=== PATIENT | female | born 1955 | race Caucasian/White ===

== ENCOUNTER 2019-03-03 21:55 | Inpatient (IN) ==
[2019-03-03 23:00] LABS: BE 8.7 mmoll (-3.0-3.0); BLOOD TYPE ARTERIAL; HCO3-(ACT) 31.5 mmoll (20.0-26.0); METHB 0.8 % (0.0-1.5); O2(CT) 15.4 mL/dL (15.0-23.0); PCO2(98.6) 46 mmHg (35-45); PO2(98.6) 50 mmHg (60-100); SAMPLE BLOOD; SAO2 90.6 % (95.0-100.0); THB 12.5 g/dL (11.5-17.4); pH(98.6) 7.47 (7.35-7.45)
[2019-03-03 23:01] LABS: ALLEN TEST NO; MODALITY ROOM AIR; O2HB 87.8 % (95.0-99.0)
[2019-03-03 23:19] LABS: URINE SOURCE CATH
[2019-03-03 23:20] LABS: BILIRUBIN URINE NEGATIVE (NEGATIVE); BLOOD URINE NEGATIVE (NEGATIVE); CLARITY CLEAR (CLEAR); COLOR YELLOW; GLUCOSE URINE NEGATIVE (NEGATIVE); KETONE URINE NEGATIVE (NEGATIVE); LEUKOCYTES URINE TRACE (NEGATIVE); NITRITE URINE NEGATIVE (NEGATIVE); PROTEIN URINE NEGATIVE (NEGATIVE); SP GRAVITY URINE 1.005; URINE BACTERIA 3+ /HFP; URINE EPITHELIAL CELLS <10 /HPF (<10); URINE RBC <10 /HPF (<10); URINE WBC <10 /HPF (<10); UROBILINOGEN URINE 4 mg/dL
[2019-03-03 23:29] LABS: BASO# 0.03 X1000 (0.0-0.2); BASO% 0.4 % (0.0-0.8); EOS# 0.43 X1000 (0.0-0.7); EOS% 5.1 % (0.0-10.0); HEMATOCRIT 37.5 % (37.0-47.0); IMM GRAN# 0.01 X1000 (0.0-0.04); IMM GRAN% 0.1 % (0.0-0.5); LYMPH# 1.48 X1000 (1.2-3.4); LYMPH% 17.4 % (20.5-51.1); MCH 32.2 PG (27-31); MCV 100.5 FL (81-99); MONO# 0.72 X1000 (0.11-0.59); MONO% 8.5 % (1.7-9.3); MPV 10.4 FL (7.4-10.4); NEUT# 5.84 X1000 (1.4-6.5); NEUT% 68.5 % (42.2-75.2); PLT 196 X1000 (130-400); RBC 3.73 XMIL (4.2-5.4); WBC 8.51 X1000 (4.8-10.8)
[2019-03-03 23:33] LABS: INR 1.15; PROTIME 15.3 Seconds (11.0-16.0)
[2019-03-03 23:34] LABS: PTT 36.7 Seconds (22.3-41.8)
[2019-03-03 23:43] LABS: AGAP 12; ALBUMIN 3.5 g/dL (3.5-5.0); ALKALINE PHOSPHATASE 94 U/L (32-104); BUN 8 mg/dL (8-22); CALCIUM 8.3 mg/dL (8.8-10.2); CHLORIDE 96 mmol/L (98-107); CK PROFILE 52 U/L (24-173); COSMO 274; CREATININE 0.7 mg/dL (0.5-0.9); ESTIMATED GFR > 60; GLUCOSE 136 mg/dL (70-104); GOT 24 U/L (10-30); GPT 13 U/L (10-36); POTASSIUM 4.2 mmol/L (3.5-5.1); SODIUM 137 mmol/L (136-145); TCO2 29 mmol/L (25-35); TOTAL PROTEIN 6.3 g/dL (6.3-8.3)
--- NOTE | 2019-03-04 00:21 | EKG Report ---
Test Performed on : 03/03/2019 11:00:52 PM Test Reason : AMS Blood Pressure : / mmHG Vent. Rate : 123 BPM Atrial Rate : 111 BPM P-R Int : 000 ms QRS Dur : 082 ms QT Int : 326 ms P-R-T Axes : 000 -29 -11 degrees QTc Int : 466 ms Atrial fibrillation. with rapid ventricular response. Minimal voltage criteria for LVH, may be normal variant Anterior infarct , age undetermined Abnormal ECG When compared with ECG of 21-FEB-2011 12:39, Atrial fibrillation. has replaced Sinus rhythm. Anterior infarct is now present Nonspecific T wave abnormality now evident in Inferior leads Unconfirmed Result
[2019-03-04 00:39] LABS: UR AMPHETAMINES QUAL NONE DETECTED (NONE DETECT); UR BARBITUATES QUAL NONE DETECTED (NONE DETECT); UR BENZODIAZEPIN QUAL PRESUMPTIVE POSITIVE (NONE DETECT); UR CANNABINOIDS QUAL NONE DETECTED (NONE DETECT); UR COCAINE QUAL NONE DETECTED (NONE DETECT); UR METHADONE QUAL NONE DETECTED (NONE DETECT); UR METHAMPHETAMINE QUAL NONE DETECTED (NONE DETECT); UR OPIATES QUAL NONE DETECTED (NONE DETECT); UR OXYCODONE QUAL NONE DETECTED (NONE DETECT); UR PCP QUAL NONE DETECTED (NONE DETECT); UR PROPOXYPHENE QUAL NONE DETECTED (NONE DETECT); UR TCA QUAL NONE DETECTED (NONE DETECT)
[2019-03-04] MEDS ORDERED: CARDIZEM IV ONE (01:45)
[2019-03-04] MEDS ORDERED: CARDIZEM 100 MG/NS 100 MG/100 ML IVPB IV SCH (04:00)
[2019-03-04] MEDS ORDERED: NS 50 ML ONE (04:37)
[2019-03-04] MEDS ORDERED: CARDIZEM ONE (04:40)
[2019-03-04] MEDS: CARDIZEM 125 MG/D5W 125 MG/125 ML IVPB IV SCH ×2 (08:49→19:02)
--- NOTE | 2019-03-04 08:49 | Diag Imaging Result Doc PS360 ---
EXAM: CHEST-PORTABLE HISTORY: AMS TECHNIQUE: Single view of the chest was performed portably. COMPARISON: 07/28/2015 FINDINGS: Lung volumes are reduced. Heart size is within normal limits. Basilar scarring is unchanged. There is screw plate fixation right humerus fracture The pulmonary vasculature is not congested. No acute infiltrate, effusion, or pneumothorax is appreciated. IMPRESSION: Stable chest with reduced lung volumes prominent interstitial markings. No acute cardiopulmonary abnormality is identified. Electronically signed by Rose Marie Srinivasan 03/04/2019 8:46 AM
--- NOTE | 2019-03-04 09:00 | Diag Imaging Result Doc PS360 ---
EXAM: CT HEAD W/O CONTRAST HISTORY: AMS TECHNIQUE: Images were obtained from the skull base to vertex without IV contrast as per standard protocol. COMPARISON: 07/27/2015 FINDINGS: There is no evidence for hemorrhage, hydrocephalus, mass effect, or fluid collection. There is diffuse cerebral atrophy and microvascular disease. Calvarium is intact. Paranasal sinuses are clear. Preliminary interpretation given by [facility] teleradiology. IMPRESSION: Atrophy and microvascular disease. No acute intracranial abnormality. This exam was performed using automated exposure control, adjustment of mA or kV according to patient size, and/or use of iterative reconstruction technique. Electronically signed by Rose Marie Srinivasan 03/04/2019 8:57 AM
[2019-03-04] MEDS ORDERED: COUMADIN PO ONE ×2 (16:14→21:00)
--- NOTE | 2019-03-04 17:15 | HISTORY AND PHYSICAL ---
CHIEF COMPLAINT: Altered mental status with hallucinations and delirium. HISTORY OF PRESENT ILLNESS: This is a 63-year-old female with a prior history of chronic pain, hypertension, hypothyroidism. She presents to the emergency room via EMS after having being called by her family who state the patient has had visual hallucinations, periods of being delirious, and confusion. The patient is aware that she is having hallucinations. She also reports a different odor to her urine as well as dysuria. She denied any syncope, dizziness, any shortness of breath, cough, fever. PAST MEDICAL HISTORY: 1. Hypothyroid. 2. Chronic back pain, on chronic narcotics. 3. Hypertension. 4. Hypothyroid. PAST SURGICAL HISTORY: She had a tubal ligation, complete total hysterectomy due to cervical cancer in 1992. ALLERGIES: Pepcid and ibuprofen which cause nausea. Latex which causes a rash. HOME MEDICATIONS: A list will be obtained by the nursing staff and once verified, will review and restart as is appropriate. REVIEW OF SYSTEMS: Discussed with patient with pertinent positives stated in HPI. She denied any syncope, dizziness, chest pain, palpitations, any shortness of breath, cough, any fever, chills, night sweats, any nausea, vomiting, diarrhea, constipation, black or bloody vomitus or stools, hematuria, dysuria, frequency, urgency. PHYSICAL EXAMINATION: GENERAL: This is a 63-year-old female who is sitting up in the bed in ICU, in no distress. VITAL SIGNS: Blood pressure is 125/76, with respirations of 20, heart rate is 111 and irregular, with temperature 97.3 degrees, O2 saturations 98 to 100% on 2 L nasal cannula. EYES: Pupils equal, round, react to light. EOMs are intact. Sclerae anicteric. HENT: Head is normocephalic, atraumatic. Mucous membranes are moist. NECK: Supple with trachea midline. CARDIOVASCULAR: Irregularly irregular rate and rhythm. S1 and S2 appreciated. She does have bilateral lower extremity edema. Calves are nontender. Peripheral pulses are palpable x4 extremities. PULMONARY: Breath sounds are clear. No increased work of breathing noted. Chest rises and falls symmetrically with respiration. Chest wall is nontender to palpation. GASTROINTESTINAL: Abdomen is soft, nontender, nondistended. Bowel sounds in all 4 quadrants. NEUROLOGIC: She is alert and oriented x3. SKIN: Warm and dry. LABS: WBC is 8.5, with hemoglobin of 12, hematocrit 37.5, and platelets of 196,000. INR is 1.15. Sodium 137, potassium 4.2, BUN 8, creatinine 0.7, with a glucose of 136. Urinalysis reveals trace white blood cells, 3+ bacteria. Urine drug screen reveals presumptive positive for benzodiazepines. Urine culture is pending. CT of the head reveals atrophy and microvascular disease. No acute intracranial abnormality. Chest x-ray: Stable chest with reduced lung volumes. No acute cardiopulmonary abnormality is identified. ASSESSMENT AND PLAN: 1. Atrial fibrillation with rapid ventricular rate. The patient has been admitted to ICU and placed on a Cardizem drip. We will continue this by protocol. We will identify her home medications and continue as is appropriate. 2. Chronic anticoagulation secondary to atrial fibrillation. We will verify the medication that she is taking and continue as appropriate. 3. Hypoxemia. PO2 is 50 on ABGs on room air. We will continue with O2 at 2 L. 4. Hypothyroid. We will continue her home medications. 5. Severe osteoporosis with multiple compression fractures. Aware. Further treatments pending hospital course. Dictated by TIFFANIE Alvarado for Leo Huizar MD cc: TIFFANIE Alvarado MD
[2019-03-04] MEDS: ROCEPHIN 1 GM in NS 50 ML IV SCH (19:02)
[2019-03-04] MEDS ORDERED: CATAPRES PO PRN (20:20)
[2019-03-04] MEDS ORDERED: SYNTHROID PO SCH (20:30)
[2019-03-04] MEDS: CYMBALTA PO SCH (20:41)
[2019-03-04] MEDS: NEURONTIN PO SCH (20:41)
[2019-03-04] MEDS ORDERED: CIPRO PO SCH (21:00)
--- NOTE | 2019-03-05 01:25 | HISTORY AND PHYSICAL ---
ADDENDUM: Patient seen and examined by myself. Full note dictated and discussed with nurse practitioner. The patient is a 63-year-old female who presented to the emergency department with confusion, disorientation, hallucinations. This seems to be resolved. She was also noted to be in atrial fibrillation. We have admitted her to the hospital ICU on and we will follow. cc: Leo Huizar MD
[2019-03-05] MEDS: CARDIZEM 125 MG/D5W 125 MG/125 ML IVPB IV SCH ×2 (06:42→17:46)
[2019-03-05] MEDS: SYNTHROID PO SCH (06:49)
[2019-03-05 07:16] LABS: HEMATOCRIT 37.6 % (37.0-47.0); HEMOGLOBIN 12.1 g/dL (12.0-16.0); MCH 32.6 PG (27-31); MCHC 32.2 g/dL (33-37); MCV 101.3 FL (81-99); MPV 10.6 FL (7.4-10.4); RBC 3.71 XMIL (4.2-5.4); RDW 12.6 % (11.5-14.5); WBC 7.69 X1000 (4.8-10.8)
[2019-03-05 07:29] LABS: INR 0.97; PROTIME 13.4 Seconds (11.0-16.0)
[2019-03-05 08:19] LABS: AGAP 13; ALBUMIN 3.2 g/dL (3.5-5.0); ALKALINE PHOSPHATASE 89 U/L (32-104); BUN 8 mg/dL (8-22); CALCIUM 8.1 mg/dL (8.8-10.2); CHLORIDE 98 mmol/L (98-107); COSMO 280; CREATININE 0.7 mg/dL (0.5-0.9); ESTIMATED GFR > 60; GLUCOSE 140 mg/dL (70-104); GOT 15 U/L (10-30); GPT 11 U/L (10-36); POTASSIUM 3.1 mmol/L (3.5-5.1); SODIUM 140 mmol/L (136-145); TCO2 29 mmol/L (25-35); TOTAL PROTEIN 6.4 g/dL (6.3-8.3)
[2019-03-05] MEDS: NEURONTIN PO SCH (09:18)
[2019-03-05] MEDS: LANOXIN PO SCH (09:18)
[2019-03-05] MEDS: XANAX PO SCH ×3 (09:19→16:23)
[2019-03-05] MEDS ORDERED: COUMADIN PO ONE ×2 (10:59→21:00)
[2019-03-05] MEDS: TYLENOL PO PRN ×2 (12:08→18:46)
[2019-03-05] MEDS: ROCEPHIN 1 GM in NS 50 ML IV SCH (16:23)
--- NOTE | 2019-03-05 20:31 | CARDIOLOGY CONSULTATION ---
DATE: 03/05/2019 CONSULTATION REQUESTED BY: Leo Huizar MD of the hospitalist service. REASON: Atrial fibrillation. CHIEF COMPLAINT: Palpitations, confusion. PRIMARY CARE PHYSICIAN: Aneudy Jimenez MD HISTORY: Ms. Hays is a 63-year-old female who presented to the hospital on March 03 with complaints of increasing confusion. The patient reported having visual hallucinations. She also reported feeling her heart palpitating feeling a little more short of breath than usual and also having intermittent swelling of the lower extremities. Upon presentation, they did a chest x- ray that shows reduced lung volumes and prominent interstitial markings. EKG showed atrial fibrillation with rapid response. There was a nonspecific T-wave abnormality left axis. A head CT showed atrophy with microvascular disease. Laboratory work showed that her pCO2 was elevated at 46 and pO2 was low at 50, pH 7.47. Her BUN and creatinine were normal. Sodium and potassium were normal. Her hemoglobin was normal. White count was normal. They have done a urinalysis, and she is growing gram-negative rods. Her TSH on the other hand is low at 0.03 suggesting that she may be hyperthyroid. The patient denies having chest pains. PAST HISTORY: Positive for paroxysmal atrial fibrillation. She has been treated with anticoagulant, warfarin, by Dr. Jimenez. She does have a surgical history positive for previous hysterectomy for suspected cancer of the uterus, which in the end apparently was ruled out. She has had chronic pain in the back, hips and knees. At some point, she has been in the pain clinic and had been treated with high doses of narcotics with very little help. She has been basically wheelchair bound for the past 5 years due to her severe osteoarthritis. The patient used to be morbidly obese, weight up to 277 pounds. Right now, she is 216 pounds. She underwent bariatric surgery about 13 years ago. She has had tubal ligation also. HOME MEDICATIONS: Included allopurinol 300 mg daily, alprazolam 1 mg 3 times a day, aspirin 81 daily, clonidine 0.3 times a day, Cymbalta 60 mg at bedtime, gabapentin 400 daily, levothyroxine 100 mcg daily, methocarbamol 750 every 6 hours, metoprolol succinate 50 twice a day, Protonix 40 mg daily, potassium chloride 10 mEq 3 times a day, ropinirole 1 mg once a day, Zanaflex 4 mg 3 times a day, warfarin 5 mg at bedtime. ALLERGIES: To famotidine, ibuprofen and latex. REVIEW OF SYSTEMS: The patient basically is wheelchair bound. She can use her hands to do some activity in the kitchen. They get their meals usually from [employer]. She has chronic lower extremity pain. Lately she has developed hallucinations. FAMILY HISTORY: There is a question of Parkinson's in the father and Alzheimer's in the mother. No significant heart disease. SOCIAL HISTORY: She is , lives with her . She has had 2 children. She has been disabled for a long time. PHYSICAL EXAMINATION: Vital signs: Today blood pressure 177/87, temperature 98.5 degrees, pulse 118, respirations 16. General: She is obese. She shows little mobility. HEENT: Unremarkable. She is obviously morbidly obese. Body mass index is 40. Chest: Shows symmetrical breath sounds. Cardiovascular: Heart sounds are irregularly irregular, distant. Abdomen: Obese, nontender. Extremities: Showed palpable pulses. There is trace brawny edema in lower extremities. Neurological exam: She moves all 4 extremities. She has some generalized muscle hypotonia probably related to diffuse muscle atrophy. IMPRESSION: 1. Patient who presents with palpitations, evidence of paroxysmal atrial fibrillation with rapid response. 2. Suspected hyperthyroidism. Her TSH is 0.03 mIU/ml. 3. Morbidly obese status post bariatric surgery. 4. Severe functional impairment. Patient has been wheelchair bound for 5 years. 5. Long-term history of severe osteoarthritis involving the hips, knees, back. 6. History of hypertension. RECOMMENDATIONS: At this time, the patient is being treated for the urinary tract infection with ceftriaxone. I am going to add beta blockers to her medications because if she is indeed hyperthyroid, beta-rebecca is probably the drug of choice to slow her heart rate down. We will proceed with checking a free T4, free T3 and free thyroxine index. Further intervention will depend on her clinical course. She will have to be followed by Dr. Jimenez a little more closely if indeed she is hyperthyroid. cc: MD Aneudy Denis MD [facility]
[2019-03-05] MEDS: LOPRESSOR PO SCH (20:44)
[2019-03-05] MEDS: CYMBALTA PO SCH (20:44)
[2019-03-05] MEDS ORDERED: COUMADIN PO SCH (21:00)
[2019-03-05] MEDS: BENADRYL PO PRN (21:04)
--- NOTE | 2019-03-05 23:01 | PROGRESS NOTE ---
DATE: 03/05/2019 SUBJECTIVE: The patient has no complaints. Notes that she has had no further delirium or confusion while in the hospital. Denies any chest pains or palpitations. PHYSICAL EXAMINATION: Vital Signs: Reviewed. Afebrile, pulse 102 to 130, respiratory 20, BP 145/83. General: The patient is awake, alert. She is in no distress. She is very pleasant to talk with. HEENT: Normocephalic. Neck: Supple. CARDIOVASCULAR: Regular rate. No murmurs. Cardiovascular: Irregular rate, irregular rhythm. Chest: Clear, unlabored. Abdomen: Soft, nondistended. Extremities: Moves all extremities. ASSESSMENT: 1. Atrial fibrillation with rapid ventricular response. 2. Chronic anticoagulation secondary to atrial fibrillation. 3. Hypoxemia. 4. Hypothyroidism. 5. Severe osteoporosis with frequent falls and compression fractures. 6. Gram-negative anson urinary tract infection. We will continue antibiotics until culture and sensitivity. 7. Acute metabolic encephalopathy, likely secondary to her urinary tract infection. Thankfully, it is improved. We will continue antibiotics. Further orders as needed. cc: Leo Huizar MD
[2019-03-05] MEDS ORDERED: BENADRYL CREAM TOP PRN (23:26)
[2019-03-06] MEDS: LOPRESSOR PO SCH ×4 (01:28→20:50)
[2019-03-06] MEDS: CARDIZEM 125 MG/D5W 125 MG/125 ML IVPB IV SCH ×2 (02:35→20:51)
[2019-03-06 06:36] LABS: INR 1.24; PROTIME 16.2 Seconds (11.0-16.0)
[2019-03-06] MEDS: SYNTHROID PO SCH (06:58)
[2019-03-06] MEDS: LANOXIN PO SCH (08:51)
[2019-03-06] MEDS: XANAX PO SCH ×3 (08:51→17:51)
[2019-03-06] MEDS: NEURONTIN PO SCH (08:58)
[2019-03-06] MEDS: TYLENOL PO PRN (14:27)
--- NOTE | 2019-03-06 16:04 | ECHO REPORT ---
ORDER DATE: 03/06/2019 INTERPRETING PHYSICIAN: Corwin Samuel MD INDICATION: Atrial fibrillation with rapid response. Definity was used. DESCRIPTION: Left ventricle end diastole: 3.6 cm. Left ventricle end systole: 1.6 cm. Posterior wall: 1.0 cm. Interventricular septum: 0.9 cm. Left atrium: 4.1 cm. Aortic diameter: 2.6 cm. SUMMARY OF 2-DIMENSIONAL IMAGIN. Left ventricular function appears to be well preserved. This study was difficult. Ejection fraction is on the order of 55% to 60%. 2. The mitral valve appears to be grossly normal. Color flow mapping indicates a mild degree of regurgitation. 3. The aortic valve appears to be grossly normal. Color flow mapping is unremarkable. 4. The pulmonic valve looks unremarkable. 5. The tricuspid valve shows a [id number] degree of regurgitation. 6. Pulmonary pressure is 51 mmHg. 7. I do not see a pericardial effusion. 8. The atria appear to be mildly enlarged. 9. Diastolic function cannot be evaluated here. Clinical correlation recommended. cc: Corwin Samuel MD
--- NOTE | 2019-03-06 16:28 | EKG Report ---
Test Performed on : 03/06/2019 4:21:23 PM Test Reason : converted -SR Blood Pressure : / mmHG Vent. Rate : 072 BPM Atrial Rate : 072 BPM P-R Int : 192 ms QRS Dur : 080 ms QT Int : 422 ms P-R-T Axes : 051 -22 007 degrees QTc Int : 462 ms Sinus rhythm. with premature atrial complexes. Possible Anterior infarct (cited on or before 03-MAR-2019) Abnormal ECG When compared with ECG of 03-MAR-2019 23:00, (Unconfirmed) Sinus rhythm. has replaced Atrial fibrillation. Vent. rate has decreased BY 51 BPM Nonspecific T wave abnormality now evident in Anterior leads Nonspecific T wave abnormality no longer evident in Lateral leads Unconfirmed Result
[2019-03-06] MEDS: ROCEPHIN 1 GM in NS 50 ML IV SCH (17:52)
[2019-03-06] MEDS: CYMBALTA PO SCH (20:51)
[2019-03-06] MEDS ORDERED: COUMADIN PO ONE (21:00)
[2019-03-06] MEDS: BENADRYL PO PRN (21:09)
--- NOTE | 2019-03-07 01:49 | PROGRESS NOTE ---
DATE: 03/06/2019 SUBJECTIVE: Patient notes overall she is feeling better. No further hallucinations. Does not really feel any palpitations. Denies any fevers. Denies any dysuria, urinary frequency, constipation, melena. PHYSICAL EXAMINATION: Vital Signs: Temperature 98.6 degrees, pulse 102 respiratory 18, BP 134/42. General: Patient is awake, alert, currently in no distress. Pleasant to talk with. HEENT: Normocephalic. Neck: Supple. Cardiovascular: Irregular rate, irregular rhythm. Chest: Clear, nonlabored. No crackles. Abdomen: Soft, nondistended, nontender. Extremities: Moves all extremities. ASSESSMENT: 1. Atrial fibrillation with rapid ventricular response. We will ask Cardiology for impression. 2. Gram-negative anson urinary tract infection. Continue Rocephin. 3. Hypoxemia. 4. Hypothyroidism. 5. Severe [*]ischemia. 6. Severe osteoporosis. PLAN: We will continue patient in the hospital. Continue to follow. Continue Cardizem, digoxin. Ask Cardiology for opinion. Further orders as needed. cc: Leo Huizar MD
[2019-03-07] MEDS: LOPRESSOR PO SCH ×4 (02:24→20:08)
[2019-03-07] MEDS: SYNTHROID PO SCH (06:47)
[2019-03-07 08:04] LABS: INR 1.85; PROTIME 22.2 Seconds (11.0-16.0)
[2019-03-07] MEDS: NEURONTIN PO SCH (08:39)
[2019-03-07] MEDS: LANOXIN PO SCH (08:39)
[2019-03-07] MEDS: XANAX PO SCH ×3 (08:39→17:13)
[2019-03-07] MEDS: CARDIZEM 125 MG/D5W 125 MG/125 ML IVPB IV SCH ×2 (12:36→20:08)
[2019-03-07] MEDS: ROCEPHIN 1 GM in NS 50 ML IV SCH (15:39)
--- NOTE | 2019-03-07 18:17 | PROGRESS NOTE ---
DATE: 03/07/2019 SUBJECTIVE: Patient unfortunately this morning is confused, disoriented. She has been talking to people who were not in the room. She has been seeing animals and bugs etc. PHYSICAL: Temperature 98, pulse anywhere from [address] to 120s and 140s, BP 152/111.General: Patient is awake. She is disoriented. She is in no current respiratory distress. HEENT: Normocephalic. Neck: Supple. CV: Irregular rate, irregular rhythm, poor rate control. Chest: Clear, nonlabored, no wheezing. Abdomen: Soft, nondistended. Extremities: Moves all extremities trace edema. Neuro: Patient is awake, alert but confused, disoriented, hallucinating. ASSESSMENT: 1. Atrial fibrillation currently very poor control. 2. Chronic anticoagulation. 3. Hypoxemia. 4. Hypothyroidism . 5. Severe osteoporosis. 6. Klebsiella urinary tract infection. Continue antibiotics. PLAN: Will continue antibiotics and supportive care, will ask Cardiology for input regarding her atrial fibrillation. Discussed with the family that her hallucinations are more likely related to her chronic mild dementia superimposed with urinary tract infection. cc: Leo Huizar MD
--- NOTE | 2019-03-07 19:52 | CARDIOLOGY PROGRESS NOTE ---
DATE: 03/06/2019 SUBJECTIVE: Ms. Hays is somewhat sleepy. She has no complaints. She has no palpitations. OBJECTIVE/PHYSICAL EXAMINATION: Vital Signs: She is afebrile. Heart rates during my examination were in the 80s to low 100s. Blood pressure 149/81. General: No acute distress. Cardiovascular: She is in a irregularly irregular rhythm consistent with atrial fibrillation. She has no lower extremity edema. Chest: Clear bilaterally. She has no increased work of breathing. Abdomen: Soft, nontender. PERTINENT DATA: Echo shows a preserved ejection fraction of 55% to 60%. Lab data shows an INR of 1.85. She has no recent chemistry or CBC data. ASSESSMENT: 1. Atrial fibrillation. 2. Urinary tract infection. PLAN: I have increased her metoprolol to 50 t.i.d. I will stop her warfarin and place her on Eliquis 5 mg b.i.d. If she gets under reasonable rate control, then that would be the extent of our medication adjustments. If not, we could consider addition of flecainide and potential cardioversion on Saturday. cc: Donny Saunders MD
[2019-03-07] MEDS: CYMBALTA PO SCH (20:08)
[2019-03-07] MEDS: ELIQUIS PO SCH (20:08)
[2019-03-07] MEDS ORDERED: COUMADIN PO SCH (21:00)
[2019-03-07] MEDS: SEROQUEL PO PRN (21:25)
[2019-03-08] MEDS: LOPRESSOR PO SCH ×3 (04:49→20:03)
[2019-03-08] MEDS: SYNTHROID PO SCH (06:46)
[2019-03-08 07:28] LABS: AGAP 11; BUN 8 mg/dL (8-22); CALCIUM 8.4 mg/dL (8.8-10.2); CHLORIDE 101 mmol/L (98-107); COSMO 278; CREATININE 0.6 mg/dL (0.5-0.9); ESTIMATED GFR > 60; GLUCOSE 105 mg/dL (70-104); MAGNESIUM 1.9 mg/dL (1.5-2.7); POTASSIUM 3.8 mmol/L (3.5-5.1); SODIUM 140 mmol/L (136-145); TCO2 28 mmol/L (25-35)
[2019-03-08] MEDS: XANAX PO SCH (08:17)
[2019-03-08] MEDS: ELIQUIS PO SCH ×2 (08:17→20:03)
[2019-03-08] MEDS: LANOXIN PO SCH (08:17)
[2019-03-08] MEDS: NEURONTIN PO SCH (08:17)
[2019-03-08] MEDS: CARDIZEM 125/NS 125 MG/125 ML IVPB IV SCH ×2 (09:22→16:44)
[2019-03-08] MEDS: TYLENOL PO PRN (14:02)
--- NOTE | 2019-03-08 15:01 | CARDIOLOGY PROGRESS NOTE ---
DATE: 03/08/2019 SUBJECTIVE: The patient reports she is doing well. She is not having any palpitations or shortness of breath. PHYSICAL EXAMINATION: Vital Signs: The patient is afebrile. Heart rates continue to fluctuate up into the 120s, blood pressure 122/69. General: She is in no acute distress. Cardiovascular: She is in an irregularly irregular rhythm. Her telemetry currently shows what appears to be coarse atrial fibrillation. No lower extremity edema. Chest: Examination is clear bilaterally. No increased work of breathing. Abdomen: Soft, nontender. PERTINENT DATA: She has chemistry data from today showing a sodium of 140, potassium is 3.8, BUN 8, creatinine 0.6, magnesium level is 1.9. ASSESSMENT: Ms. Hays is a 63-year-old female with atrial fibrillation. PLAN: We will continue her on current medications. Discontinue digoxin. Start flecainide 100 b.i.d. She is on apixaban at 5 b.i.d. We will transfer her over to [facility] tomorrow for consideration of CRISPIN, cardioversion. Risks, benefits, and alternatives have been explained to the patient. cc: Donny Saunders MD
[2019-03-08] MEDS: ROCEPHIN 1 GM in NS 50 ML IV SCH (16:07)
--- NOTE | 2019-03-08 18:34 | PROGRESS NOTE ---
DATE: 03/08/2019 SUBJECTIVE: Patient has no complaints. She is still having auditory and visual hallucinations. PHYSICAL: Temperature 97 degrees, pulse 80s to 120s, respiratory 22, BP 72/53 to 135/82.General: Patient is awake, she is lying in bed, she is in no current distress. HEENT: Normocephalic. Neck: Supple. CV: Irregular rate, irregular rhythm. Chest: Clear, no crackles, no wheezing. Abdomen: Soft, nondistended. Extremities: Trace edema. ASSESSMENT: 1. Atrial fibrillation, rapid ventricular response recalcitrant to treatment. She has been on Cardizem drip for several days. Cardiology has added metoprolol and increased to 50 q.6. 2. Klebsiella urinary tract infection currently on intravenous antibiotics. 3. Chronic anticoagulation secondary to atrial fibrillation. 4. Hypoxemia. 5. Hypothyroidism. 6. Severe osteoporosis. 7. Metabolic encephalopathy secondary to sundowning and urinary tract infection . PLAN: Will continue patient in the hospital. Cardiology may be add flecainide versus cardioversion. Discussed with the family. Further orders as needed. cc: Leo Huizar MD
[2019-03-08] MEDS: XANAX PO PRN (19:50)
[2019-03-08] MEDS: CYMBALTA PO SCH (20:03)
[2019-03-08] MEDS: TAMBOCOR PO SCH (20:03)
[2019-03-08] MEDS: SEROQUEL PO PRN (23:09)
[2019-03-09] MEDS: LOPRESSOR PO SCH ×4 (05:20→21:23)
[2019-03-09] MEDS: SYNTHROID PO SCH (06:34)
--- NOTE | 2019-03-09 06:34 | EKG Report ---
Test Performed on : 03/09/2019 06:28:29 AM Test Reason : converted to sinus Blood Pressure : / mmHG Vent. Rate : 069 BPM Atrial Rate : 069 BPM P-R Int : 200 ms QRS Dur : 082 ms QT Int : 442 ms P-R-T Axes : 071 -17 024 degrees QTc Int : 473 ms Normal sinus rhythm. Cannot rule out Anterior infarct (cited on or before 03-MAR-2019) Abnormal ECG When compared with ECG of 06-MAR-2019 16:21, (Unconfirmed) premature atrial complexes. are no longer present Unconfirmed Result
[2019-03-09 07:01] LABS: HEMATOCRIT 40.5 % (37.0-47.0); HEMOGLOBIN 12.9 g/dL (12.0-16.0); MCH 32.4 PG (27-31); MCHC 31.9 g/dL (33-37); MCV 101.8 FL (81-99); MPV 10.6 FL (7.4-10.4); RBC 3.98 XMIL (4.2-5.4); RDW 12.7 % (11.5-14.5); WBC 6.72 X1000 (4.8-10.8)
[2019-03-09 07:37] LABS: INR 2.94
[2019-03-09 07:53] LABS: AGAP 11; ALBUMIN 3.1 g/dL (3.5-5.0); ALKALINE PHOSPHATASE 84 U/L (32-104); BUN 7 mg/dL (8-22); CALCIUM 8.6 mg/dL (8.8-10.2); CHLORIDE 104 mmol/L (98-107); COSMO 283; CREATININE 0.6 mg/dL (0.5-0.9); ESTIMATED GFR > 60; GLUCOSE 98 mg/dL (70-104); GOT 22 U/L (10-30); GPT 14 U/L (10-36); MAGNESIUM 1.8 mg/dL (1.5-2.7); POTASSIUM 3.8 mmol/L (3.5-5.1); SODIUM 143 mmol/L (136-145); TCO2 28 mmol/L (25-35); TOTAL PROTEIN 6.4 g/dL (6.3-8.3)
[2019-03-09] MEDS: NEURONTIN PO SCH (09:15)
[2019-03-09] MEDS: TAMBOCOR PO SCH ×2 (09:15→21:24)
[2019-03-09] MEDS: ELIQUIS PO SCH ×2 (09:15→21:24)
--- NOTE | 2019-03-09 09:54 | PROGRESS NOTE ---
DATE: 03/09/2019 SUBJECTIVE: Patient reports feeling fine. She had slept very well. No auditory hallucinations or visual hallucinations noted. The patient since last night she is on sinus rhythm as per nursing staff. OBJECTIVE: Vital Signs: Temperature 97.1 degrees, heart rate 65, respiratory rate 13, blood pressure 120/69, O2 saturation 97% on room air. General Examination: This is a chronically ill- appearing, 63-year-old, female lying in bed, in no acute distress. HEENT: Head is normocephalic, atraumatic. Neck: No JVD noted. No carotid bruits. No lymphadenopathy. No thyromegaly. Cardiovascular: S1, S2 heard. No murmurs, gallops, or rubs. Regular rate and rhythm. Respiratory: Clear bilaterally to auscultation. No work of breathing or using accessory muscles. Abdomen: Soft, nontender to palpation. Bowel sounds present. No organomegaly. No suprapubic tenderness noted. Extremities: No clubbing, cyanosis, or edema. Peripheral pulses present in both legs. Neurological: Patient alert, oriented x3. Moves 4 extremities. LABORATORY DATA: White cell count 6.72, hemoglobin 12.9, hematocrit 40.5, platelets 259,000. Normal BMP except calcium 8.6. ASSESSMENT AND PLAN: 1. Atrial fibrillation with rapid ventricular response. The heart rate is much better controlled today. She is still on Cardizem drip at 5 mg per hour. The patient has been started by cardiology with Tambocor 100 mg p.o. b.i.d. The patient is also receiving beta blockers, in this case metoprolol 50 mg p.o. 8 hours. At this point, my plan is to continue with current medications. I think with Tambocor we will be able to control heart rate. Patient denies any chest pain or any chest discomfort or any palpitations. We will continue to monitor this patient here in the intensive care unit. The patient is on Eliquis 5 mg p.o. b.i.d. for this condition. We will continue with the same management. 2. Klebsiella urinary tract infection. Patient is on ceftriaxone. Today is day #6 of antibiotics. We will continue with the same management. We will do urine culture to make sure this infection has been eradicated. 3. Hyperthyroidism. On this patient she used to be hypothyroid. When she started having this atrial fibrillation with rapid ventricular rate. We checked thyroid stimulating hormone and that was very low but the T3 and T4 was normal, even the T3 free T free T3 and free T4. In this regard definitely considering low TSH but we do not need to continue with levothyroxine. In that regard, I am going to stop that medication today. I do not think this patient may have a central hypothyroidism. Probably she may have a non thyroidal illness considering this urinary tract infection. In any case, I prefer to monitor this patient closely and have TSH, free T3 and free T4 repeated upon discharge in primary care office. 4. Metabolic encephalopathy. The patient has responded nicely to Seroquel so I am planning to continue with this medication in a regular basis at night and see how she does. 5. Severe osteoporosis, aware. DISPOSITION: At this point, as mentioned before, we will continue monitoring this patient closely. I hope that this Cardizem drip has been will be discontinued today. We will continue with Tambocor and metoprolol. cc: Rober Kelly MD MTDD
[2019-03-09] MEDS: ROCEPHIN 1 GM in NS 50 ML IV SCH (17:03)
[2019-03-09] MEDS: TYLENOL PO PRN (17:03)
[2019-03-09] MEDS: SEROQUEL PO SCH (21:23)
[2019-03-09] MEDS: CYMBALTA PO SCH (21:24)
[2019-03-10] MEDS: LOPRESSOR PO SCH ×3 (05:55→20:17)
[2019-03-10 07:23] LABS: BASO# 0.03 X1000 (0.0-0.2); BASO% 0.4 % (0.0-0.8); EOS# 0.44 X1000 (0.0-0.7); EOS% 6.4 % (0.0-10.0); HEMOGLOBIN 12.3 g/dL (12.0-16.0); IMM GRAN# 0.01 X1000 (0.0-0.04); IMM GRAN% 0.1 % (0.0-0.5); LYMPH# 1.36 X1000 (1.2-3.4); LYMPH% 19.8 % (20.5-51.1); MCH 32.5 PG (27-31); MCHC 32.4 g/dL (33-37); MCV 100.5 FL (81-99); MONO# 0.43 X1000 (0.11-0.59); MONO% 6.3 % (1.7-9.3); MPV 10.2 FL (7.4-10.4); NEUT# 4.59 X1000 (1.4-6.5); PLT 286 X1000 (130-400); RBC 3.78 XMIL (4.2-5.4); RDW 12.7 % (11.5-14.5); WBC 6.86 X1000 (4.8-10.8)
[2019-03-10 07:42] LABS: AGAP 9; BUN 9 mg/dL (8-22); CALCIUM 8.5 mg/dL (8.8-10.2); CHLORIDE 104 mmol/L (98-107); COSMO 282; CREATININE 0.5 mg/dL (0.5-0.9); ESTIMATED GFR > 60; GLUCOSE 99 mg/dL (70-104); POTASSIUM 3.9 mmol/L (3.5-5.1); SODIUM 142 mmol/L (136-145); TCO2 28 mmol/L (25-35)
[2019-03-10] MEDS: TAMBOCOR PO SCH ×2 (09:00→20:17)
[2019-03-10] MEDS: ELIQUIS PO SCH ×2 (09:00→20:17)
[2019-03-10] MEDS: NEURONTIN PO SCH (09:00)
--- NOTE | 2019-03-10 09:01 | PROGRESS NOTE ---
DATE: 03/10/2019 SUBJECTIVE: As per nursing staff, the patient has been having visual hallucinations. She was not able to sleep properly. She has been in sinus rhythm all night long. Cardizem had been stopped yesterday around 10 a.m. OBJECTIVE: Vital Signs: Temperature 97.8 degrees, heart rate 76, respiratory rate 14, blood pressure 120/69, O2 saturation 100% on room air. General Examination: This is a chronically ill- appearing, 63-year-old, female lying in bed, in no acute distress. HEENT: Head is normocephalic and atraumatic. Neck: No JVD noted. No carotid bruits. No lymphadenopathy. No thyromegaly. Cardiovascular Examination: S1 and S2 heard. No murmurs, gallops, or rubs. Regular rate and rhythm. Respiratory Examination: Clear bilaterally to auscultation. No work of breathing or using accessory muscles. Abdomen: Soft, nontender to palpation. Bowel sounds present. No organomegaly. Extremities: No clubbing, cyanosis, or edema. Peripheral pulses present in both legs. Neurological Examination: The patient is alert and oriented x3. Moves 4 extremities. Laboratory Data: CBC is unremarkable, as well as BMP. ASSESSMENT AND PLAN: 1. Atrial fibrillation with rapid ventricular response. Heart rate is definitely much better controlled. She is no longer on a Cardizem drip. She has been started by cardiology with Tambocor 100 mg by mouth twice a day and also she is receiving metoprolol 50 mg by mouth every 8 hours. With both medications, heart rate is well controlled. She reports no chest pain, no chest discomfort, no palpitations at all. The patient is on Eliquis 5 mg by mouth twice a day for this condition. At this point, the patient is definitely more stable. She can be transferred out to the intensive care unit and continue with current medications. 2. Klebsiella urinary tract infection. Patient is on ceftriaxone, day #7 of this antibiotic. We have ordered a urine culture, which is still pending, to make sure that this infection has been eradicated. White cell count is normal. No fever. The patient is not complaining of any burning on urination. We will continue with the same management. 3. Hyperthyroidism. At this point, as we mentioned in our note from yesterday, I do think that this patient does not need to be on any levothyroxine, considering that her TSH was very low. I think she needs to have a TSH checked 2 to 4 weeks after discharge as an outpatient to see how she is doing. Then we will see if she needs to restart levothyroxine or not. 4. Metabolic encephalopathy/visual hallucinations. The patient has been given Seroquel at night and apparently, the night before yesterday, she was doing fine but yesterday night, she was confused, having visual hallucinations. Considering that she is medically stable right now, I think we may need to consult [facility] to see if there is anything that we can do from a psychiatric perspective. 5. Severe osteoporosis. Aware. 6. Disposition. At this point, we are going to transfer this patient to a regular floor. We will consult [facility]. The patient is medically stable. We will start physical therapy on this patient. cc: Rober Kelly MD
[2019-03-10] MEDS: TYLENOL PO PRN ×2 (13:36→20:16)
[2019-03-10] MEDS: XANAX PO PRN ×2 (13:36→20:17)
[2019-03-10] MEDS: ROCEPHIN 1 GM in NS 50 ML IV SCH (16:06)
[2019-03-10] MEDS: CYMBALTA PO SCH (20:17)
[2019-03-10] MEDS: SEROQUEL PO SCH (20:17)
[2019-03-11] MEDS: LOPRESSOR PO SCH ×2 (04:21→14:47)
[2019-03-11] MEDS: XANAX PO PRN ×2 (04:30→10:16)
[2019-03-11] MEDS: TYLENOL PO PRN ×2 (04:31→14:47)
[2019-03-11 06:54] LABS: BASO# 0.04 X1000 (0.0-0.2); BASO% 0.7 % (0.0-0.8); EOS# 0.48 X1000 (0.0-0.7); EOS% 8.2 % (0.0-10.0); HEMATOCRIT 42.3 % (37.0-47.0); HEMOGLOBIN 13.2 g/dL (12.0-16.0); IMM GRAN# 0.01 X1000 (0.0-0.04); IMM GRAN% 0.2 % (0.0-0.5); LYMPH# 1.51 X1000 (1.2-3.4); LYMPH% 25.9 % (20.5-51.1); MCH 31.7 PG (27-31); MCHC 31.2 g/dL (33-37); MCV 101.7 FL (81-99); MONO# 0.41 X1000 (0.11-0.59); MPV 10.3 FL (7.4-10.4); NEUT# 3.37 X1000 (1.4-6.5); PLT 294 X1000 (130-400); RBC 4.16 XMIL (4.2-5.4); RDW 12.8 % (11.5-14.5); WBC 5.82 X1000 (4.8-10.8)
[2019-03-11 07:10] LABS: AGAP 11; BUN 10 mg/dL (8-22); CALCIUM 8.6 mg/dL (8.8-10.2); CHLORIDE 103 mmol/L (98-107); COSMO 283; CREATININE 0.6 mg/dL (0.5-0.9); ESTIMATED GFR > 60; GLUCOSE 141 mg/dL (70-104); POTASSIUM 3.9 mmol/L (3.5-5.1); SODIUM 141 mmol/L (136-145); TCO2 27 mmol/L (25-35)
[2019-03-11] MEDS: TAMBOCOR PO SCH (09:24)
[2019-03-11] MEDS: ELIQUIS PO SCH (09:24)
[2019-03-11] MEDS: NEURONTIN PO SCH (09:24)
[2019-03-11] MEDS ORDERED: ROCEPHIN 2 GM in NS 50 ML IV SCH (10:30)
[2019-03-11 11:40] VITALS: BP 140/94
--- NOTE | 2019-03-11 22:36 | DISCHARGE SUMMARY ---
ADMISSION DATE: 03/04/2019 DISCHARGE DATE: 03/11/2019 PRIMARY CARE PHYSICIAN: Dr. Aneudy Jimenez. ADMISSION DIAGNOSES: 1. Atrial fibrillation with rapid ventricular response. 2. Chronic anticoagulation secondary to atrial fibrillation. 3. Hypoxemia. 4. Hypothyroidism. 5. Severe osteoporosis with multiple compression fractures. DISCHARGE DIAGNOSES: 1. Atrial fibrillation with rapid ventricular response. Now rate controlled. 2. Klebsiella urinary tract infection. 3. Hyperthyroidism. 4. Metabolic encephalopathy with visual hallucinations. Improved. 5. Severe osteoporosis. SUMMARY OF FINDINGS: This is a 63-year-old female who presented to the emergency room after being called by her family, who state the patient was having some visual hallucinations, periods of being delirious and confused. She was having dysuria also. She was admitted, placed in ICU initially on a Cardizem drip. We started her on O2 as her PO2 on ABGs on room air was 50. We continued her home medications. We consulted Cardiology, who did an echocardiogram on 03/06/2019 that showed an ejection fraction of 55 to 60 percent. The left ventricular function appeared well preserved. She was able to wean off of the Cardizem drip, transferred out to the floor. She was found to have a TSH level that was also very low at 0.03 with a free T4 of 1.34, a free T4 index was also looked at and were all normal. She will need to have her TSH checked 2 to 4 weeks after discharge, then we will see if she needs to restart levothyroxine or not. She was placed on antibiotics for her urinary tract infection appropriately. We did consult [facility], and it was felt that she would need inpatient treatment but patient refused, and so now it is felt that she can safely be discharged home today. DISCHARGE MEDICATIONS: Xanax 1 mg p.o. t.i.d. p.r.n., Eliquis 5 mg p.o. b.i.d, #60 with 1 refill, duloxetine 60 mg p.o. at bedtime, flecainide 100 mg p.o. b.i.d., #60 with no refills, a prescription for Seroquel 50 mg p.o. at bedtime, #30 with no refills, allopurinol 300 mg p.o. daily, aspirin 81 mg p.o. daily, cefdinir 300 mg p.o. b.i.d., #20 with no refills, Robaxin 750 mg p.o. q.6 hours p.r.n., pantoprazole 40 mg p.o. daily, propranolol 1 mg p.o. daily, Zanaflex 4 mg p.o. t.i.d., tramadol 50 mg p.o. q.6 hours p.r.n., #30 with no refills. FOLLOW-UP: She needs to follow up with her primary care physician in 2 weeks, with Cardiology in 3 to 4 weeks, and the office will call her in the next week, and she will also have home health services. TIME SPENT WITH PATIENT: This a 35 minute discharge. Dictated by TIFFANIE Linares for Rober Kelly MD Addendum: Patient seen and examined by myself. Agree with TIFFANIE note. It reflects my assessment and plan. Patient is being discharged in stable condition. Home health will be set up for her and will be seen by Finishing Manager in 3 to 4 weeks. cc: TIFFANIE Linares MD Rodney W. Harney, MD Peter Johnson, MD MTDD
== END 2019-03-11 14:54 | disposition home health service (06) | DRG 308 ==
LOC: P.ED 21:55 → SUATTDRO 03-04 04:07 → P.ICU 03-04 04:07 → P.MEDSURG 03-10 10:37
PROVIDERS: ATTEND Internal Medicine
CPT/HCPCS: 51702; 70450; 71010; 71045; 80048; 80053; 80104; 80301; 80305; 81001; 82550; 82805; 82948; 83605; 83735; 84436; 84439; 84443; 84479; 84481; 84484; 85025; 85027; 85610; 85730; 87077; 87088; 87186; 93005; 93306; 93312; 94761; 96374; 97110; 97163; 99285; A9270; C8929; G0431; G0434; G0477; J0696; Q9957; XXXXX

== ENCOUNTER 2019-03-15 16:49 | Inpatient (IN) ==
[2019-03-15 17:41] LABS: BE 1.1 mmoll (-3.0-3.0); BLOOD TYPE ARTERIAL; HCO3-(ACT) 25.7 mmoll (20.0-26.0); O2(CT) 18.7 mL/dL (15.0-23.0); O2HB 95.6 % (95.0-99.0); PCO2(98.6) 37 mmHg (35-45); PO2(98.6) 102 mmHg (60-100); SAMPLE BLOOD; SAO2 98.2 % (95.0-100.0); THB 13.8 g/dL (11.5-17.4); pH(98.6) 7.44 (7.35-7.45)
[2019-03-15 17:42] LABS: ALLEN TEST YES; MODALITY ROOM AIR
[2019-03-15 17:52] LABS: INR 0.96; PROTIME 13.3 Seconds (11.0-16.0)
[2019-03-15 17:53] LABS: PTT 30.1 Seconds (22.3-41.8)
[2019-03-15 18:02] LABS: ALBUMIN 4.5 g/dL (3.5-5.0); CALCIUM 8.9 mg/dL (8.8-10.2); CREATININE 1.3 mg/dL (0.5-0.9); POTASSIUM 4.6 mmol/L (3.5-5.1); TOTAL BILIRUBIN 0.4 mg/dL (0.20-1.00); TOTAL PROTEIN 7.9 g/dL (6.3-8.3)
[2019-03-15 18:45] LABS: CK INDEX 3.1 (0.0-2.5); CK-MB 13.74 ng/mL (0.0-5.0)
[2019-03-15 19:04] LABS: BILIRUBIN URINE NEGATIVE (NEGATIVE); BLOOD URINE NEGATIVE (NEGATIVE); CLARITY SL. CLOUDY (CLEAR); COLOR YELLOW; GLUCOSE URINE NEGATIVE (NEGATIVE); KETONE URINE NEGATIVE (NEGATIVE); LEUKOCYTES URINE NEGATIVE (NEGATIVE); NITRITE URINE NEGATIVE (NEGATIVE); PROTEIN URINE NEGATIVE (NEGATIVE); UROBILINOGEN URINE NORMAL
[2019-03-15 19:06] LABS: URINE BACTERIA 1+ /HFP; URINE CAST NONE SEEN /LPF; URINE CRYSTAL NONE SEEN /HPF; URINE EPITHELIAL CELLS <10 /HPF (<10); URINE SOURCE CATH; URINE YEAST NONE SEEN /HPF
--- NOTE | 2019-03-15 19:28 | Diag Imaging Result Doc PS360 ---
EXAM: CHEST-PORTABLE HISTORY: ams TECHNIQUE: Portable chest single view COMPARISON: 03/03/2019 FINDINGS: Poor inspiratory effort. The heart is not enlarged. The vessels are not distended. There are no infiltrates. No effusion identified. Old injury and surgery to the right shoulder. IMPRESSION: Stable chest Electronically signed by Terry Bellamy 03/15/2019 7:26 PM
[2019-03-15] MEDS ORDERED: ASPIRIN PO ONE (20:00)
--- NOTE | 2019-03-15 20:01 | PROVIDER DOCUMENTATION ---
HPI-General Adult - General Chief Complaint: General Adult Stated Complaint: AMS Time Seen by Provider: 03/15/19 19:32 Source: patient, family Allergies/Adverse Reactions: Patient Allergies Allergy/AdvReac Type Severity Reaction Status Date / Time famotidine [From Duexis] Allergy NAUSEA Verified 03/15/19 17:04 ibuprofen [From Duexis] Allergy NAUSEA Verified 03/15/19 17:04 latex Allergy RASH Verified 03/15/19 17:04 Home Medications: Home Medication List Medication Instructions Recorded Confirmed Last Taken Type Allopurinol 300 mg PO DAILY 08/15/14 03/15/19 09/17/17 History Aspirin EC 81 mg PO DAILY 03/04/19 03/15/19 Unknown History Duloxetine [Cymbalta] 60 mg PO QHS 03/04/19 03/15/19 Unknown History Gabapentin 400 mg PO BID 03/04/19 03/15/19 Unknown History Methocarbamol [Robaxin] 750 mg PO Q6HR PRN 03/04/19 03/15/19 Unknown History Metoprolol Succinate E.r. [Toprol 50 mg BID 03/04/19 03/15/19 Unknown History Xl] Pantoprazole [Protonix] 40 mg DAILY 03/04/19 03/15/19 Unknown History Ropinirole HCl 1 mg PO QHS 03/04/19 03/15/19 Unknown History Tizanidine [Zanaflex] 4 mg PO TID 03/04/19 03/15/19 Unknown History Alprazolam [Xanax] 1 mg PO TID PRN PRN tab 03/11/19 03/15/19 Unknown Rx CefDINIR [Omnicef] 300 mg PO BID #20 cap 03/11/19 03/15/19 Unknown Rx Flecainide [Tambocor] 100 mg PO BID #60 tab 03/11/19 03/15/19 Unknown Rx Quetiapine [Seroquel] 50 mg PO HS #30 tab 03/11/19 03/15/19 Unknown Rx Apixaban [Eliquis] 5 mg PO DAILY 03/15/19 03/15/19 Unknown History - History of Present Illness -Gen Adult Nature of Presenting Problems: Patient is a 63 year old white female with history of recurrent visual/auditory hallucinations for several years, atrial fibrillation, osteoporosis who presents with worsening hallucinations and recurrent chest tightness for past 4 days. Just admitted to [facility] last week for new onset atrial fibrillation and UTI. Currently chest pain free with GCS of 15. patient is currently oriented to person,place, and time and without hallucinations. Followed by Dr. Jimenez. Has been admitted to [facility] in past several months. Denies history of CAD. Review of Systems - Adult - REVIEW OF SYSTEMS - ADULT Constitutional: denies: chills, fever Eyes: denies: blurred vision Ears, Nose, Mouth & Throat: denies: throat pain Cardiovascular: reports: see HPI, chest pain (intermittent) Respiratory: denies: shortness of breath Gastrointestinal: denies: abdominal pain, diarrhea, nausea, vomiting Genitourinary: denies: dysuria (recent UTI) Musculoskeletal: reports: no symptoms reported Integumentary: denies: rash Neurological: reports: see HPI Psychiatric: reports: see HPI, anxiety. denies: suicidal thoughts Endocrine: reports: no symptoms reported Hematologic/Lymphatic: reports: no symptoms reported All Other Systems: Reviewed and Negative Past History - Adult - PAST MEDICAL HISTORY-ADULT Review of Records: reports: Old Records Reviewed, Nursing Assessment Review, Medications Reviewed, Social history reviewed & non-contributory. Major Childhood Illnesses: reports: denies history Cardiovascular: reports: A-Fib Respiratory: reports: asthma Musculoskeletal: reports: osteoporosis Psychiatric: reports: other (recurrent hallucinations) Endocrine/Immune: reports: thyroid disorder - PRIOR SURGERIES/PROCEDURES Surgical/Procedure History: reports: hysterectomy - PRIOR HOSPITALIZATIONS Prior Hospitalizations: reports: for other non-related - IMMUNIZATION STATUS Childhood Immunizations: See Nurse Assessment Flu Vaccine: See Nurse Assessment - FAMILY HISTORY Family History: reviewed, not pertinent Physical Exam-General - PHYSICAL EXAM-ADULT Initial Vital Signs Reviewed: Yes - CONSTITUTIONAL General Appearance: alert, no apparent distress, obese, other (GCS=15, nondiaphoretic) - EYES Eyes: other (clear) - HEAD, EARS, NOSE, MOUTH & THROAT HENMT: normocephalic/atraumatic, moist mucous membranes - NECK Neck: supple - RESPIRATORY Respiratory: decreased breath sounds - CARDIOVASCULAR Cardiovascular: regular rate, rhythm - GASTROINTESTINAL (ABDOMEN) Abdominal Exam: non tender, soft - LYMPHATIC Lymphatic: no adenopathy - MUSCULOSKELETAL Back Exam: normal inspection Extremity: swelling Peripheral Pulses: radial (R): 2+, radial (L): 2+ - SKIN Integumentary: normal color, normal turgor - PSYCHIATRIC Psych/Mental Status: anxious Progress - PLAN OF CARE/RESULTS Progress/Plan/Lab Results: Vital Signs - 8 hr 03/15/19 16:59 03/15/19 17:03 03/15/19 18:09 Temperature 98.6 F 98 F Pulse Rate 74 75 Respiratory Rate 19 24 Blood Pressure 126/94 123/64 O2 Sat by Pulse Oximetry 97 96 Laboratory Results - last 24 hr 03/15/19 03/15/19 03/15/19 17:19 17:26 17:26 PT INR PTT (Actin FS) Specimen Type ARTERIAL Sample Site R RADIAL pH 7.44 pCO2 37 pO2 102 H HCO3 25.7 Base Excess 1.1 Oxyhemoglobin 95.6 ABG O2 Sat (Calculated) 18.7 ABG O2 Saturation 98.2 ABG Carboxyhemoglobin 1.60 ABG Methemoglobin 1.0 Abdirahman Test YES A-a O2 Difference 1.0 Total Hemoglobin 13.8 Lactate 1.70 Blood Gas Modality ROOM AIR FiO2 % 21.0 Sodium 133 L Potassium 4.6 Chloride 93 L Carbon Dioxide 24 L Anion Gap 17 BUN 16 Creatinine 1.3 H Estimated GFR/1.73 m2 41 BUN/Creatinine Ratio 12 Glucose 89 Calculated Osmolality 267 Calcium 8.9 Total Bilirubin 0.40 AST 34 H ALT 21 Alkaline Phosphatase 96 Creatine Kinase 445 H Creatine Kinase Index 3.1 H CK-MB (CK-2) 13.74 H Troponin T Total Protein 7.9 Albumin 4.5 Globulin 3.0 Albumin/Globulin Ratio 1.0 Plasma Lactate 1.9 Urine Source Urine Color Urine Clarity Urine pH Ur Specific [place] Urine Protein Urine Ketones Urine Blood Urine Nitrite Urine Bilirubin Urine Urobilinogen Urine Microscopic RBC Urine WBC Ur Epithelial Cells Urine Crystals Urine Bacteria Urine Casts Urine Yeast Urine Glucose 03/15/19 03/15/19 03/15/19 17:26 17:26 17:56 PT 13.3 INR 0.96 PTT (Actin FS) 30.1 Specimen Type Sample Site pH pCO2 pO2 HCO3 Base Excess Oxyhemoglobin ABG O2 Sat (Calculated) ABG O2 Saturation ABG Carboxyhemoglobin ABG Methemoglobin Abdirahman Test A-a O2 Difference Total Hemoglobin Lactate Blood Gas Modality FiO2 % Sodium Potassium Chloride Carbon Dioxide Anion Gap BUN Creatinine Estimated GFR/1.73 m2 BUN/Creatinine Ratio Glucose Calculated Osmolality Calcium Total Bilirubin AST ALT Alkaline Phosphatase Creatine Kinase Creatine Kinase Index CK-MB (CK-2) Troponin T < 0.010 Total Protein Albumin Globulin Albumin/Globulin Ratio Plasma Lactate Urine Source CATH Urine Color YELLOW Urine Clarity SL. CLOUDY A Urine pH 5.0 Ur Specific [place] 1.010 Urine Protein NEGATIVE Urine Ketones NEGATIVE Urine Blood NEGATIVE Urine Nitrite NEGATIVE Urine Bilirubin NEGATIVE Urine Urobilinogen NORMAL Urine Microscopic RBC Not Reportable Urine WBC NEGATIVE Ur Epithelial Cells <10 Urine Crystals NONE SEEN Urine Bacteria 1+ Urine Casts NONE SEEN Urine Yeast NONE SEEN Urine Glucose NEGATIVE Orders Category Date Time Status Cardiac Monitoring DIRECTED Care 03/15/19 17:06 Active Finger Stick Blood Sugar (ED) DIRECTED Care 03/15/19 17:06 Active Oxygen Therapy- ED Nursing DIRECTED Care 03/15/19 17:06 Active Saline Loc NOW Care 03/15/19 17:06 Active CHEST-PORTABLE [RAD] Stat Exams 03/15/19 17:06 Completed ABG [RESP] Routine Lab 03/15/19 17:19 Completed CBC WITH ELECTRONIC DIFF [HEME] Stat Lab 03/15/19 17:26 Ordered CK PROFILE [SP CHEM] Stat Lab 03/15/19 17:26 Completed CK PROFILE [SP CHEM] Stat Lab 03/15/19 19:56 Ordered COMPREHENSIVE METABOLIC PANEL [CHEM] Stat Lab 03/15/19 17:26 Completed LACTATE, PLASMA [CHEM] Stat Lab 03/15/19 17:26 Completed PROTIME WITH INR [COAG] Stat Lab 03/15/19 17:26 Completed PTT [COAG] Stat Lab 03/15/19 17:26 Completed TROPONIN T Stat Lab 03/15/19 17:26 Completed TROPONIN T Stat Lab 03/15/19 19:56 Ordered ua [URINALYSIS PL W/POSS RFLX CULT] [URINALYSIS] Stat Lab 03/15/19 17:56 Completed Altered Mental Status Stat Oth 03/15/19 17:05 Ordered EKG [EKG] Stat Ther 03/15/19 17:06 Ordered EKG [EKG] Stat Ther 03/15/19 19:32 Ordered Result Diagrams: 03/16/19 09:10 03/16/19 09:10 - EKG 1 Time of EKG reading by physician:: 18:56 EKG Read and Signed by:: Jatinder Andrew EKG Interpretation (*Must complete 3 of following elements*): Abnormal Rate: 77 Rhythm: NSR [place]: left CA Interval: normal Comments: prolonged QT, n STEMI 2 Time of EKG reading by physician:: 19:48 EKG Read and Signed by:: Jatinder Andrew EKG Interpretation (*Must complete 3 of following elements*): Abnormal Rate: 76 Rhythm: NSR QRS: PVC's (occasional) CA Interval: normal - CONSULTS/PCP/HOSPITALIST Notification #1 *Consult/PCP/Hospitalist*: Dr. Zapata, hospitalist Time Discussed: 20:15 Consult Disposition: Admit Departure - Departure Date of Disposition Decision: 03/15/19 Time of Disposition Decision: 22:14 DIAGNOSIS: Hallucinations Chest pain Qualifiers: Chest pain type: unspecified Qualified Code(s): R07.9 - Chest pain, unspecified Atrial fibrillation Qualifiers: Atrial fibrillation type: unspecified Qualified Code(s): I48.91 - Unspecified atrial fibrillation Disposition: ADMITTED INPATIENT 09 Certified Medical Emergency: Emergent Condition: Stable - Critical Care Note This patient required my direct & personal management of CC.: No Attestation - Physician/ CRYSTAL Attestation Patient care was provided by Advanced Practice Provider:: No The physician spent face to face time with patient:: Yes Advanced Practice Provider documentation review:: Supervising physician onsite and consulted in the evaluation and care of this patient. The physician did have a face to face encounter with the patient.
[2019-03-15 21:37] LABS: CK INDEX 2.9 (0.0-2.5); CK-MB 10.23 ng/mL (0.0-5.0)
[2019-03-16 01:07] LABS: CK INDEX 2.9 (0.0-2.5); CK-MB 8.26 ng/mL (0.0-5.0)
[2019-03-16] MEDS: REQUIP PO SCH ×2 (01:29→20:40)
[2019-03-16] MEDS: SEROQUEL PO SCH ×2 (01:29→20:40)
[2019-03-16] MEDS: XANAX PO PRN ×3 (01:29→18:55)
[2019-03-16 03:03] LABS: CK INDEX 2.4 (0.0-2.5); CK-MB 6.7 ng/mL (0.0-5.0)
--- NOTE | 2019-03-16 04:22 | EKG Report ---
Test Performed on : 03/15/2019 7:47:59 PM Test Reason : pain Blood Pressure : / mmHG Vent. Rate : 076 BPM Atrial Rate : 076 BPM P-R Int : 224 ms QRS Dur : 120 ms QT Int : 438 ms P-R-T Axes : 086 -06 059 degrees QTc Int : 492 ms Sinus rhythm. with 1st degree AV block. with occasional premature ventricular complexes. Possible Anterior infarct (cited on or before 03-MAR-2019) Abnormal ECG When compared with ECG of 15-MAR-2019 18:55, (Unconfirmed) premature ventricular complexes. are now present Confirmed by Bull CALVILLO, Ermias ([id number]), social media editor Radha Batres ([id number]) on 03/20/2019 1:55:20 PM
--- NOTE | 2019-03-16 04:22 | EKG Report ---
Test Performed on : 03/15/2019 6:55:28 PM Test Reason : ams Blood Pressure : / mmHG Vent. Rate : 077 BPM Atrial Rate : 077 BPM P-R Int : 224 ms QRS Dur : 114 ms QT Int : 480 ms P-R-T Axes : 086 -16 051 degrees QTc Int : 543 ms Sinus rhythm. with 1st degree AV block. Anterior infarct (cited on or before 03-MAR-2019) Prolonged QT Abnormal ECG When compared with ECG of 09-MAR-2019 06:28, QRS duration has increased Questionable change in initial forces of Anterior leads QT has lengthened Confirmed by Bull CALVILLO, Ermias ([id number]), editor in chief Radha Batres ([id number]) on 03/20/2019 1:55:20 PM
[2019-03-16 05:02] LABS: BASO# 0.06 X1000 (0.0-0.2); BASO% 0.7 % (0.0-0.8); EOS# 0.55 X1000 (0.0-0.7); EOS% 6.5 % (0.0-10.0); HEMATOCRIT 41.8 % (37.0-47.0); HEMOGLOBIN 13.7 g/dL (12.0-16.0); IMM GRAN# 0.03 X1000 (0.0-0.04); IMM GRAN% 0.4 % (0.0-0.5); LYMPH# 1.57 X1000 (1.2-3.4); LYMPH% 18.4 % (20.5-51.1); MCH 32.5 PG (27-31); MCHC 32.8 g/dL (33-37); MCV 99.1 FL (81-99); MONO# 0.57 X1000 (0.11-0.59); MONO% 6.7 % (1.7-9.3); MPV 9.8 FL (7.4-10.4); NEUT# 5.73 X1000 (1.4-6.5); NEUT% 67.3 % (42.2-75.2); PLT 381 X1000 (130-400); RBC 4.22 XMIL (4.2-5.4); WBC 8.51 X1000 (4.8-10.8)
[2019-03-16] MEDS ORDERED: ROBAXIN PO PRN (07:55)
--- NOTE | 2019-03-16 08:56 | EKG Report ---
Test Performed on : 03/16/2019 08:17:52 AM Test Reason : RE-EVAL AFIB Blood Pressure : / mmHG Vent. Rate : 125 BPM Atrial Rate : 136 BPM P-R Int : 000 ms QRS Dur : 112 ms QT Int : 310 ms P-R-T Axes : 000 -18 103 degrees QTc Int : 447 ms Atrial fibrillation. with rapid ventricular response. Possible Anterior infarct (cited on or before 03-MAR-2019) ST & T wave abnormality, consider lateral ischemia Abnormal ECG When compared with ECG of 15-MAR-2019 19:47, (Unconfirmed) Atrial fibrillation. has replaced Sinus rhythm. Vent. rate has increased BY 49 BPM Serial changes of Anterior infarct present Confirmed by Ermias Gottlieb MD ([id number]) on 03/22/2019 4:22:17 AM
[2019-03-16] MEDS: ZYLOPRIM PO SCH (09:13)
[2019-03-16] MEDS: ASPIRIN EC PO SCH (09:13)
[2019-03-16] MEDS: OMNICEF PO SCH ×2 (09:13→20:40)
[2019-03-16] MEDS: ELIQUIS PO SCH (09:13)
[2019-03-16] MEDS: TOPROL XL PO SCH ×2 (09:13→20:40)
[2019-03-16] MEDS: TAMBOCOR PO SCH ×2 (09:14→20:40)
[2019-03-16] MEDS: PROTONIX PO SCH (09:24)
[2019-03-16] MEDS: NEURONTIN PO SCH ×2 (09:24→20:40)
[2019-03-16 09:35] LABS: BASO# 0.05 X1000 (0.0-0.2); BASO% 0.6 % (0.0-0.8); EOS# 0.43 X1000 (0.0-0.7); EOS% 5.1 % (0.0-10.0); HEMATOCRIT 42.2 % (37.0-47.0); HEMOGLOBIN 13.7 g/dL (12.0-16.0); IMM GRAN# 0.01 X1000 (0.0-0.04); IMM GRAN% 0.1 % (0.0-0.5); LYMPH# 1.47 X1000 (1.2-3.4); LYMPH% 17.5 % (20.5-51.1); MCH 32.2 PG (27-31); MCHC 32.5 g/dL (33-37); MCV 99.1 FL (81-99); MONO# 0.59 X1000 (0.11-0.59); MPV 9.8 FL (7.4-10.4); NEUT# 5.86 X1000 (1.4-6.5); NEUT% 69.7 % (42.2-75.2); PLT 344 X1000 (130-400); RBC 4.26 XMIL (4.2-5.4); RDW 12.7 % (11.5-14.5); WBC 8.41 X1000 (4.8-10.8)
[2019-03-16 10:39] LABS: AGAP 18; ALBUMIN 4.1 g/dL (3.5-5.0); ALKALINE PHOSPHATASE 96 U/L (32-104); BUN 15 mg/dL (8-22); CALCIUM 9.1 mg/dL (8.8-10.2); CHLORIDE 93 mmol/L (98-107); COSMO 275; CREATININE 0.9 mg/dL (0.5-0.9); ESTIMATED GFR > 60; GLUCOSE 106 mg/dL (70-104); GOT 28 U/L (10-30); GPT 17 U/L (10-36); POTASSIUM 4.2 mmol/L (3.5-5.1); SODIUM 137 mmol/L (136-145); TCO2 26 mmol/L (25-35); TOTAL PROTEIN 7.5 g/dL (6.3-8.3)
[2019-03-16 11:07] LABS: FREE T4 0.99 ng/dL (0.93-1.70); TSH 0.05 uIUmL (0.27-4.20)
[2019-03-16] MEDS ORDERED: CARDIZEM IV ONE (11:20)
[2019-03-16 11:31] LABS: CK INDEX 2.6 (0.0-2.5); CK-MB 4.63 ng/mL (0.0-5.0)
--- NOTE | 2019-03-16 12:18 | HISTORY AND PHYSICAL ---
PRIMARY CARE PHYSICIAN: Dr. Aneudy Jimenez CHIEF COMPLAINT: Altered mental status. HISTORY OF PRESENT ILLNESS: Ms. Hays is a 63-year-old female who was discharged from our service 5 days ago for atrial fibrillation and RVR, Klebsiella UTI, auditory and visual hallucinations which were improved at the time. She comes in today with the same complaints, per her family, of auditory and visual hallucinations. The patient reports that she hears voices saying that it was "stupid of her to come here because no one would do anything." She has no suicidal or homicidal ideations. She is also complaining of some chest tightness which is difficult to substantiate because she is a poor historian. She also has subclinical hypothyroidism. Her family states that she has been having more hallucinations, "odd behaviors," delirium and confusion. In the ER, labs were done, and she was noted to be slightly hyponatremic with an acute kidney injury and mildly elevated CKs. She also had some slightly cloudy urine but no true evidence of UTI. Currently she denies any auditory or visual hallucinations. She is slightly disoriented but follows commands without deficits. We are going to check an MRI and admit her for further treatment and evaluation. PAST MEDICAL HISTORY: 1. Recent Klebsiella pneumoniae urinary tract infection. 2. Chronic back pain. 3. Hypertension. 4. Subclinical hyperthyroidism. 5. Paroxysmal atrial fibrillation, on anticoagulation. 6. Severe osteoporosis with history of compression fractures. PAST SURGICAL HISTORY: Tubal ligation, total hysterectomy. ALLERGIES: Pepcid and ibuprofen. HOME MEDICATIONS: Allopurinol 300 mg daily, aspirin 81 mg daily, Cymbalta 60 mg at bedtime, Eliquis 5 mg daily, Neurontin 400 mg p.o. b.i.d. before breakfast, Protonix 40 mg daily, Robaxin 750 mg p.o. q.6, ropinirole 1 mg p.o. at bedtime, Toprol-XL 50 mg p.o. b.i.d., Zanaflex 4 mg p.o. t.i.d., Omnicef 300 mg p.o. b.i.d., Seroquel 50 mg p.o. at bedtime, Tambocor 100 mg p.o. b.i.d., Xanax 1 mg p.o. t.i.d. as needed. PHYSICAL EXAMINATION: VITAL SIGNS: Blood pressure is 145/77, heart rate is 93, respiratory rate 16, O2 saturation 94% on room air, temperature is 98.7. GENERAL: An obese female lying in hospital bed in no acute distress. NEUROLOGICAL: She is awake, slightly lethargic, answers time incorrectly. She follows commands without focal deficits. PSYCHIATRIC: Flat affect. No homicidal or suicidal ideations. HEENT: Head is atraumatic and normocephalic. Pupils are equal, round and reactive to light. Oral mucosa is slightly dry. NECK: Trachea is midline. There is no JVD. CHEST: Clear to auscultation. CARDIOVASCULAR: Tachycardic and irregular. S1 and S2 noted. GASTROINTESTINAL: Soft, nondistended and nontender. Bowel sounds are active. EXTREMITIES: Trace edema. Pulses are 1+ bilaterally. DIAGNOSTIC DATA: Chest x-ray does not show anything acute. Most recent EKG this morning shows atrial fibrillation with RVR. Heart rate is 125 beats a minute. WBC is 8.41, hemoglobin 13.7, hematocrit 42.2, platelet count 344. Sodium is 137, potassium 4.2, chloride 93, CO2 is 26, anion gap 18, BUN is 15, creatinine 0.9, glucose 106, calcium 9.1, bilirubin 0.5, AST is 28, ALT is 17, alkaline phosphatase 96. CK is 177. CKMB is 6.7. Troponin negative. Albumin 4.1. TSH is 0.05. Free T4 is 0.99. Urine slightly cloudy with 1+ bacteria. ASSESSMENT AND PLAN: 1. Paranoia with auditory and visual hallucinations. It would appear that this is psychiatric in nature. She does have subclinical hyperthyroidism, however, unlikely to cause the level of symptoms that she is having. She does have possible evidence of UTI, but she is on antibiotics which we will continue. There does not appear to be any other metabolic derangement that could be causing such hallucination. We are going to check an MRI of her brain and if negative, we will consult [facility]. 2. Atrial fibrillation with rapid ventricular response. We will give her 10 mg of IV Cardizem and continue Tambocor, metoprolol and Eliquis. If her rate is not controlled with IV push of Cardizem, we will start a drip and move her to the ICU and check cardiac enzymes. Full workup was done last admission. 3. Recent diagnosis of Klebsiella pneumoniae urinary tract infection. Continue Omnicef. Stable. 4. Subclinical hyperthyroidism. The patient has a TSH of 0.05, free T4 of 0.99. She also had more comprehensive studies last time which showed a free T3 of 2.7, thyroxine binding capacity of 0.9, total thyroxine of 6.1 and free thyroxine index of 6.8, all which were within normal limits. This will need to be evaluated on an outpatient basis. She does not appear to be in thyroid storm. We will continue her beta blockade. 5. Further recommendations to follow. Dictated by TIFFANIE Salter for Leo Huizar MD cc: TIFFANIE Salter MD Dr. Harney MTDD
--- NOTE | 2019-03-16 14:18 | Diag Imaging Result Doc PS360 ---
EXAM: MRI BRAIN W/WO CONTRAST 03/16/2019 HISTORY: ams TECHNIQUE: T1 sagittal and axial and post gadolinium-enhanced axial with coronal reformation, T2, FLAIR, DWI axial and coronal gradient echo. COMMENT: There are no previous MRI studies. There is considerable motion artifact on some of the images. There is mild cerebral atrophy and extensive periventricular white matter hyperintensity on T2. There is no evidence of restricted diffusion. There is no evidence of bleed or abnormal extra-axial fluid collection. There are patchy and punctate areas of increased T2-weighted signal intensity in the white matter of both hemispheres. There is no evidence of abnormal gadolinium enhancement. IMPRESSION: Chronic ischemic microvascular white matter disease. No evidence of acute intracranial abnormality. Electronically signed by Raymon Bradford 03/16/2019 2:16 PM
[2019-03-16] MEDS ORDERED: CYMBALTA PO SCH (21:00)
--- NOTE | 2019-03-17 00:04 | HISTORY AND PHYSICAL ---
ADDENDUM: The patient is seen and examined by myself. Full note dictated and discussed with nurse practitioner. The patient presented to the hospital very similar to her previous admission with confusion, recurrent auditory and visual hallucinations. Although the patient states these have been going on for years, the daughter appears to be complaining that this just started. The patient was doing this in the hospital the last time, had a urinary tract infection. Of an interesting note this seems to occur much more dramatically and more severely when the daughter is around. Currently to my examination she is awake, alert, oriented. She is having no hallucination, for the 3 days that I saw her in the hospital previously we also had none; however, the daughter is in the room. She is now seeing snakes and garbage cans and babies tied up in bags, etc. According to the ER note, the patient also was alert and oriented to person, place and time without hallucinations, and the daughter was not present at that time. We will admit her to the hospital. Recheck a urine culture. Should this be negative we certainly need to consider [facility] for a psychiatric evaluation. The patient does note that she has been anxious and depressed for the last several years. cc: Leo Huizar MD
[2019-03-17] MEDS: NEURONTIN PO SCH (06:05)
[2019-03-17] MEDS: PROTONIX PO SCH (06:05)
[2019-03-17] MEDS: XANAX PO PRN (06:22)
[2019-03-17 06:45] LABS: HEMATOCRIT 43.1 % (37.0-47.0); MCHC 32.5 g/dL (33-37); MCV 98.4 FL (81-99); MPV 10.1 FL (7.4-10.4); RBC 4.38 XMIL (4.2-5.4); RDW 12.8 % (11.5-14.5); WBC 7.34 X1000 (4.8-10.8)
[2019-03-17 08:11] LABS: AGAP 15; ALBUMIN 3.9 g/dL (3.5-5.0); ALKALINE PHOSPHATASE 89 U/L (32-104); BUN 9 mg/dL (8-22); CHLORIDE 91 mmol/L (98-107); COSMO 270; CREATININE 0.9 mg/dL (0.5-0.9); ESTIMATED GFR > 60; GLUCOSE 113 mg/dL (70-104); GOT 28 U/L (10-30); GPT 18 U/L (10-36); POTASSIUM 3.6 mmol/L (3.5-5.1); SODIUM 135 mmol/L (136-145); TCO2 29 mmol/L (25-35); TOTAL PROTEIN 7.5 g/dL (6.3-8.3)
[2019-03-17] MEDS: ASPIRIN EC PO SCH (08:23)
[2019-03-17] MEDS: ZYLOPRIM PO SCH (08:23)
[2019-03-17] MEDS: ELIQUIS PO SCH (08:23)
[2019-03-17] MEDS: TOPROL XL PO SCH (08:23)
[2019-03-17] MEDS: OMNICEF PO SCH (08:24)
[2019-03-17] MEDS: TAMBOCOR PO SCH (08:25)
[2019-03-17 12:33] VITALS: BP 152/72
[2019-03-17] MEDS ORDERED: ELIQUIS PO SCH (21:00)
--- NOTE | 2019-03-17 21:03 | DISCHARGE SUMMARY ---
ADMISSION DATE: 03/16/2019 DISCHARGE DATE: 03/17/2019 ADDENDUM: Patient seen and examined by myself. Full note dictated and discussed with nurse practitioner. On discharge, the patient is awake, alert. She is in no current distress. She denies any current hallucinations, but notes that she has been having hallucinations off and on for the past year. Clinically she is awake, alert, stable. She appears to be in her baseline condition. We will have consulted [facility], and will transfer the patient to [place] for further evaluation. cc: Leo Huizar MD
--- NOTE | 2019-03-18 07:56 | DISCHARGE SUMMARY ---
ADMISSION DATE: 03/16/2019 DISCHARGE DATE: 03/17/2019 ADMISSION DIAGNOSIS: 1. Paranoia with auditory and visual hallucinations. 2. Atrial fibrillation with rapid ventricular response. 3. Recent diagnosis of Klebsiella pneumoniae urinary tract infection. 4. Subclinical hyperthyroidism. DISCHARGE DIAGNOSIS: 1. Paranoia with auditory and visual hallucinations. 2. Atrial fibrillation with rapid ventricular response has resolved. 3. Recent diagnosis of Klebsiella pneumoniae urinary tract infection. 4. Subclinical hyperthyroidism. DIAGNOSTIC PROCEDURES AND FINDINGS: Chest x-ray 03/15/2019: Negative. EKG 03/15/2019: Sinus rhythm, PVCs, no acute ST or T abnormalities. EKG 03/16/2019: Atrial fibrillation RVR. Brain MRI 03/16/2019: Chronic ischemic white matter changes, nothing acute. CONSULTATIONS: None. HOSPITAL COURSE: Mrs. Hays is a 63-year-old female, who was recently discharged from our service 5 days prior to admission for atrial fibrillation with RVR, Klebsiella UTI, and auditory and visual hallucinations. She had her atrial fibrillation controlled by Cardiology at that time and was actually set to go to [facility] for psychiatric evaluation but ultimately refused treatment. Her family brought her back 5 days later at which time she was admitted to our facility, she was continuing to have auditory and visual hallucinations. She also has known subclinical hyperthyroidism. An MRI was done here in the hospital, which did not show anything acute. We continued with antibiotics for her UTI. The morning after admission she did back into atrial fibrillation RVR, which was treated appropriately with Cardizem push. Ultimately, she was evaluated by [facility] and felt appropriate for inpatient admission. This morning, she is stable. Vital signs are stable, and she is now ready for transfer to that facility. DISCHARGE MEDICATIONS: Allopurinol 300 mg p.o. daily, Protonix 40 mg daily, metoprolol XL 50 mg b.i.d., aspirin 81 mg daily, Neurontin 400 mg p.o. b.i.d., ropinirole 1 mg p.o. at bedtime, Cymbalta 60 mg p.o. at bedtime, Robaxin 750 mg p.o. q.6 hours as needed, Seroquel 50 mg p.o. at bedtime, flecainide 100 mg p.o. b.i.d., Xanax 1 mg p.o. t.i.d. as needed p.r.n. anxiety, Omnicef 300 mg p.o. b.i.d., Eliquis 5 mg p.o. b.i.d. DISCHARGE DIET: Heart healthy. DISCHARGE ACTIVITY: Resume activity as tolerated. DISPOSITION AND OTHER DISCHARGE INSTRUCTIONS: The patient is discharged to [facility]. She will continue care under their supervision. She needs to follow up with her PCP regarding her subclinical hyperthyroidism and for any other needs within 1-2 weeks after discharge from [facility]. She is to return to the ER or call 911 for worsening complaints or concerns. All questions answered. DISCHARGE TIME: Greater than 35 minutes. Dictated by TIFFANIE Salter for Leo Huizar MD cc: TIFFANIE Salter MD
== END 2019-03-17 14:20 | DRG 309 ==
LOC: P.MEDSURG 16:49 → P.ED 16:49 → SUATTDRO 16:50
PROVIDERS: ATTEND Family Medicine
CPT/HCPCS: 70553; 71010; 71045; 80053; 81001; 82140; 82550; 82553; 82607; 82746; 82805; 82948; 83605; 83735; 84439; 84443; 84484; 85025; 85027; 85610; 85730; 93005; 93010; 94761; 99285; A9270; A9579; XXXXX

== ENCOUNTER 2019-04-16 14:01 | Inpatient (IN) ==
[2019-04-16] MEDS ORDERED: AMIDATE ONE (14:11)
[2019-04-16] MEDS ORDERED: NORCURON ONE (14:11)
[2019-04-16] MEDS ORDERED: QUELICIN ONE (14:11)
[2019-04-16] MEDS ORDERED: VERSED ONE (14:11)
[2019-04-16] MEDS ORDERED: DIPRIVAN 1% 1,000 MG/100 ML BOTTLE ONE (14:30)
[2019-04-16] MEDS ORDERED: NS 1,000 ML ONE (14:30)
[2019-04-16] MEDS ORDERED: SODIUM BICARBONATE 8.4% IV ONE ×2 (14:31→14:32)
[2019-04-16] MEDS ORDERED: CALCIUM CHLORIDE SYRINGE IV ONE (14:31)
[2019-04-16] MEDS ORDERED: NS 1,000 ML IV ONE ×4 (14:31→18:49)
[2019-04-16] MEDS ORDERED: QUELICIN IV ONE (14:32)
[2019-04-16] MEDS ORDERED: AMIDATE IV ONE (14:32)
[2019-04-16] MEDS ORDERED: ATROPINE IV ONE ×2 (14:33→14:34)
[2019-04-16] MEDS ORDERED: EPINEPHRINE SYRINGE IV ONE ×2 (14:33→14:34)
[2019-04-16 14:34] LABS: BLOOD TYPE ARTERIAL; SAMPLE BLOOD
[2019-04-16 14:35] LABS: ALLEN TEST YES; BE 0.9 mmoll (-3.0-3.0); HCO3-(ACT) 25.7 mmoll (20.0-26.0); METHB 0.5 % (0.0-1.5); MODALITY ROOM AIR; O2(CT) 16.9 mL/dL (15.0-23.0); O2HB 97.9 % (95.0-99.0); PCO2(98.6) 49 mmHg (35-45); PO2(98.6) 358 mmHg (60-100); SAO2 100.6 % (95.0-100.0); SRATE 16 BPM; THB 11.6 g/dL (11.5-17.4); TVOL 450 mL; pH(98.6) 7.35 (7.35-7.45)
[2019-04-16] MEDS ORDERED: ATIVAN IM ONE (15:13)
[2019-04-16] MEDS ORDERED: ATROPINE INJ ONE (15:15)
[2019-04-16 15:26] LABS: BASO# 0.04 X1000 (0.0-0.2); BASO% 0.3 % (0.0-0.8); EOS# 0.07 X1000 (0.0-0.7); EOS% 0.6 % (0.0-10.0); HEMATOCRIT 36.1 % (37.0-47.0); HEMOGLOBIN 11.3 g/dL (12.0-16.0); IMM GRAN# 0.13 X1000 (0.0-0.04); IMM GRAN% 1.1 % (0.0-0.5); LYMPH# 2.28 X1000 (1.2-3.4); LYMPH% 19.3 % (20.5-51.1); MCH 31.8 PG (27-31); MCHC 31.3 g/dL (33-37); MCV 101.7 FL (81-99); MONO# 0.49 X1000 (0.11-0.59); MONO% 4.1 % (1.7-9.3); MPV 9.5 FL (7.4-10.4); NEUT# 8.83 X1000 (1.4-6.5); NEUT% 74.6 % (42.2-75.2); PLT 258 X1000 (130-400); RBC 3.55 XMIL (4.2-5.4); RDW 14.1 % (11.5-14.5); WBC 11.84 X1000 (4.8-10.8)
[2019-04-16] MEDS ORDERED: ATROPINE SYRINGE IV ONE (15:30)
[2019-04-16 15:31] LABS: PTT 45.4 Seconds (22.3-41.8)
[2019-04-16] MEDS ORDERED: NS 500 ML IV ONE (15:35)
[2019-04-16] MEDS ORDERED: ZOSYN 4.5 GM in NS 100 ML IV ONE (15:35)
[2019-04-16] MEDS ORDERED: VANCOMYCIN 1 GM/NS 1 GM/250 ML IVPB IV ONE (15:35)
[2019-04-16] MEDS ORDERED: DIPRIVAN 1% 1,000 MG/100 ML BOTTLE IV SCH (15:45)
[2019-04-16 15:53] LABS: ALB/GLOB RATIO 1.4; ALBUMIN 3.7 g/dL (3.5-5.0); CALCIUM 8.5 mg/dL (8.8-10.2); CREATININE 1.4 mg/dL (0.5-0.9); MAGNESIUM 1.8 mg/dL (1.5-2.7); PHOSPHORUS 5.5 mg/dL (2.7-4.5); POTASSIUM 4.7 mmol/L (3.5-5.1); TOTAL BILIRUBIN 0.58 mg/dL (0.20-1.00); TOTAL PROTEIN 6.3 g/dL (6.3-8.3)
--- NOTE | 2019-04-16 15:55 | Diag Imaging Result Doc PS360 ---
EXAM: CHEST-PORTABLE 04/16/2019 HISTORY: Central line placement TECHNIQUE: AP portable at 1543 COMMENT: There is an endotracheal tube with its tip at thoracic inlet and a right subclavian catheter with its tip in the superior vena cava. The inspiration is suboptimal. There is increased interstitial opacity present in both lung bases. This is worse than on 03/20/2019. The pulmonary vascularity is also increased. There is no evidence of pneumothorax. There may be small bilateral pleural effusions. IMPRESSION: Pulmonary edema pleural effusions and pulmonary vascular congestion. Electronically signed by Raymon Bradford 04/16/2019 3:53 PM
[2019-04-16 16:02] LABS: INR 5.37; PROTIME 52.6 Seconds (11.0-16.0)
[2019-04-16] MEDS ORDERED: LASIX IV ONE (16:02)
[2019-04-16] MEDS ORDERED: LEVOPHED 8 MG in D5 1/2 NS 250 ML IV SCH ×4 (16:15)
[2019-04-16 16:21] LABS: CK INDEX 0.6 (0.0-2.5); CK-MB 1.77 ng/mL (0.0-5.0)
[2019-04-16] MEDS: DIPRIVAN 1% 1,000 MG/100 ML BOTTLE IV SCH (16:58)
--- NOTE | 2019-04-16 18:27 | CARDIOLOGY CONSULTATION ---
DATE: 04/16/2019 CHIEF COMPLAINT: Patient found down at home. HISTORY OF PRESENT ILLNESS: Ms. Hays is a 63-year-old white female with a history of paroxysmal atrial fibrillation, chronic pain and obesity. She was at home today and per her she was in her usual state of health. She woke up and spends most of her time in a lift chair. She took all of her medications presumably in a correct fashion. He last saw her awake around 10 a.m. He then went off to take a nap. He next saw her around noon when a social media campaign manager came by the house for a visit with the patient. The patient was apparently unresponsive. Paramedics were called. I do not have any information detailing her presenting rhythm, but apparently when she came to the emergency room, she was in a junctional bradycardia. Transcutaneous pacing was undertaken. Subsequently she was resuscitated including intubated. Presently, the patient is sedated on the ventilator and is actually in a sinus rhythm with a rate of around 50 beats per minute. PAST MEDICAL HISTORY: Significant for: 1. Paroxysmal atrial fibrillation, recently admitted to [facility]. She had been maintained on I believe beta blockers as well as flecainide. 2. Alzheimer-type dementia. 3. Obesity. SOCIAL HISTORY: She is . No apparent tobacco use. FAMILY HISTORY: Significant for hypertension. REVIEW OF SYSTEMS: Unable to be obtained secondary to the patient's current intubated and sedated status. PHYSICAL EXAMINATION: Vital signs: She is afebrile. Her heart rate currently is in a sinus rhythm around 50 beats per minute. Her most recent blood pressure was 85/76. General: She is in no acute distress, sedated on the ventilator. HEENT: Oropharynx is moist. Poor dentition. Eye examination is pink conjunctivae, white sclerae. Neck: Examination shows no obvious thyromegaly or thyroid tenderness. Cardiovascular: She sounds to be in a mildly bradycardic and regular rhythm. She has no lower extremity edema. She has no obvious murmurs but very distant heart sounds. Chest exam: Sounds clear. She has mechanical breath sounds heard throughout all lung villarreal. Abdomen: Soft, nontender. She has no obvious organomegaly. Skin Exam: Warm and dry throughout without any rashes. Neurological: She is sedated on the ventilator. Psychiatric: Sedated on the ventilator. PERTINENT DATA: Her chest x-ray demonstrates pulmonary edema with pleural effusions and pulmonary vascular congestion. She had an echocardiogram in February demonstrating an ejection fraction of 55% to 60%. Her lab data shows a white count of 11.8, hematocrit 36, platelet count is 258,000. Her INR was 5.3. Her lactate was 4.5, sodium 143, potassium 4.7, BUN 10, creatinine 1.4. Her proBNP is 4294. Troponin is less than 0.01. AST and ALT are 203 and 82 respectively. Her TSH is 0.18. ASSESSMENT: Ms. Hays is a 63-year-old white female with a history of paroxysmal atrial fibrillation now presenting being found down. Presumably the presenting heart rhythm was junctional bradycardia. PLAN: The patient is on multiple medications, which could potentially interact causing bradycardia being duloxetine, flecainide, ropinirole and metoprolol. At this point, she is maintaining a sinus rhythm. I would likely discontinue all of these medications for the time being and potentially just try to use a beta-rebecca in the future. If she had episodic bradycardia, we could consider a pacemaker in the future. Currently, she is maintaining a sinus mechanism. Her blood pressure seems better. She is going to get a CT scan of her head to evaluate for any potential bleeding complication given that her INR is 5.3. Her TSH is notably 0.18. We will recheck laboratories in the morning including a free T4. She did have this evaluated in the past were her free T3 was normal as was her free T4 with significantly low TSHs. We will recheck an echocardiogram in the morning considering she had significant pulmonary edema on her chest x-ray, although notably she had a normal ejection fraction relatively recently. cc: Donny Saunders MD
--- NOTE | 2019-04-16 18:31 | Diag Imaging Result Doc PS360 ---
EXAM: CT HEAD W/O CONTRAST HISTORY: ams TECHNIQUE: CT head without contrast COMPARISON: 03/04/2019 FINDINGS: No parenchymal hemorrhage. No epidural or subdural hematoma. No subarachnoid hemorrhage. Mild chronic microvascular ischemic changes No mass identified on this noncontrasted exam. No hydrocephalus. No sinus opacification. IMPRESSION: No hemorrhage. Chronic microvascular ischemic changes This exam was performed using automated exposure control, adjustment of mA or kV according to patient size, and/or use of iterative reconstruction technique. Electronically signed by Terry Bellamy 04/16/2019 6:29 PM
--- NOTE | 2019-04-16 18:57 | PROVIDER DOCUMENTATION ---
This chart was entered by Abena Valdivia Scribe, acting as scribe for Lenny Trevino MD. HPI-Neurological Disorder - General Chief Complaint: Unresponsive Stated Complaint: UNRESPONSIVE Time Seen by Provider: 04/16/19 14:29 Source: patient Allergies/Adverse Reactions: Patient Allergies Allergy/AdvReac Type Severity Reaction Status Date / Time famotidine [From Duexis] Allergy NAUSEA Verified 03/15/19 17:04 ibuprofen [From Duexis] Allergy NAUSEA Verified 03/15/19 17:04 latex Allergy RASH Verified 03/15/19 17:04 Home Medications: Home Medication List Medication Instructions Recorded Confirmed Last Taken Type Allopurinol 300 mg PO DAILY 08/15/14 03/17/19 03/17/19 08:23 History Aspirin EC 81 mg PO DAILY 03/04/19 03/17/19 03/17/19 08:23 History Metoprolol Succinate E.r. [Toprol 50 mg BID 03/04/19 03/17/19 03/17/19 08:23 History Xl] Pantoprazole [Protonix] 40 mg DAILY 03/04/19 03/17/19 03/17/19 06:05 History Flecainide [Tambocor] 100 mg PO BID #60 tab 03/11/19 03/17/19 03/17/19 08:25 Rx Apixaban [Eliquis] 5 mg PO BID #0 03/17/19 03/17/19 03/17/19 08:23 Rx Aripiprazole [Abilify] 15 mg PO DAILY 30 Days #30 tab 03/30/19 Unknown Rx Cyanocobalamin [Vitamin B-12] 500 microgm PO DAILY tab 03/30/19 Unknown Rx Diclofenac 1% Gel [Voltaren 1% Gel] 2 gm TOP 4XDAY 30 Days #1 tube 03/30/19 Unknown Rx Duloxetine [Cymbalta] 30 mg PO BID 30 Days #60 cap 03/30/19 Unknown Rx Ergocalciferol (Vitamin D2) 50,000 unit PO Q7D 30 Days #4 cap 03/30/19 Unknown Rx [Vitamin D] Gabapentin 400 mg PO BID 30 Days #60 cap 03/30/19 Unknown Rx Melatonin 5 mg PO QHS 30 Days #30 tab 03/30/19 Unknown Rx Mirtazapine [Remeron] 15 mg PO QHS 30 Days #30 tab 03/30/19 Unknown Rx Ropinirole HCl 1 mg PO QHS 30 Days #30 tab 03/30/19 Unknown Rx - History of Present Illness-Neuro Nature of Presenting Problem: Patient is a 63 year old female who presents to the ED via EMS with altered mental status. EMS states patient was found unresponsive in recliner by . EMS reports patient heart rate was 25 on their arrival. Patient was placed on pacer. 1404 - Patient arrived in ED via EMS. 1406 - Pacer was turned off and patient's heart rate dropped 26. Pacer was turned back on and heart rate increased to 91. 1408 - Epi given. 1410 - Atropine given. 1412 - 10 mg of Etomidate given. 1413 - 100 mg of Succ given. 1414 - 1st attempt at intubation. 1416 - Intubation placed. 1417 - Pacer was turned off and patient showed sine wave rhythm. Pacer was turned back on. 1421 - IO was placed to left tibia. 1422 - Bicarb given. 1423 - Calcium given. 1424 - EJ was placed by TYLOR Murillo. 1425 - Epi given. 1427 - Pacer turned off. PVC. Pulse present. Patient's heart rate was 58. 1428 - Pacer turned back on due to patient's heart rate dropping. 1430 - Bicarb given. Severity: reports: moderate Onset/Duration: reports: just prior to arrival Timing: reports: still present Context: reports: found unresponsive by family Character of Altered Mental Status: reports: unresponsive Similar Symptoms Previously?: No Recently seen or treated by another doctor?: No Review of Systems - Adult - REVIEW OF SYSTEMS - ADULT ROS:: unobtainable per condition Constitutional: reports: no symptoms reported Eyes: reports: no symptoms reported Ears, Nose, Mouth & Throat: reports: no symptoms reported Cardiovascular: reports: no symptoms reported Respiratory: reports: no symptoms reported Gastrointestinal: reports: no symptoms reported Genitourinary: reports: no symptoms reported Musculoskeletal: reports: no symptoms reported Integumentary: reports: no symptoms reported Neurological: reports: no symptoms reported Psychiatric: reports: no symptoms reported Endocrine: reports: no symptoms reported Hematologic/Lymphatic: reports: no symptoms reported Allergic/Immunologic: reports: no symptoms reported All Other Systems: Reviewed and Negative Past History - Adult - PAST MEDICAL HISTORY-ADULT Review of Records: reports: Old Records Reviewed, Nursing Assessment Review, Medications Reviewed Major Childhood Illnesses: reports: denies history Cardiovascular: reports: A-Fib, HTN Respiratory: reports: asthma Gastrointestinal: reports: denies history Obstetrical/Gynecological: reports: denies history Genitourinary: reports: denies history Musculoskeletal: reports: osteoporosis Neurological: reports: denies history Psychiatric: reports: other (recurrent hallucinations) Endocrine/Immune: reports: thyroid disorder Other Conditions: reports: denies history - PRIOR SURGERIES/PROCEDURES Surgical/Procedure History: reports: hysterectomy, orthopedic (extremity) - PRIOR HOSPITALIZATIONS Prior Hospitalizations: reports: for other non-related - IMMUNIZATION STATUS Childhood Immunizations: See Nurse Assessment Flu Vaccine: See Nurse Assessment - FAMILY HISTORY Family History: reviewed, not pertinent - SOCIAL HISTORY Smoking: denies Substance Use: denies Living Situation: family Physical Exam- Neurological - Physical Exam-Neuro Initial Vital Signs Reviewed: Yes General Appearance: obese, lethargic. negative: alert Eye Exam: bilateral eye: other (7 mm ) HENMT: normocephalic/atraumatic, other (nasal trumpet in right nostril). negative: angioedema Head Injury: no evidence of injury. negative: contusions, ecchymosis, lacerations Respiratory: chest non-tender, wheezing (expiratory bilateral). negative: accessory muscle use, rhonchi, stridor Cardiovascular: no edema, no gallop, other (normal rate and rhythm with pacing. heart sounds are not audible without pacing.). negative: systolic murmur, friction rub Extremity: other (4 + pitting edema to bilateral lower extremities.). negative: deformity, erythema, swelling cook roast Exam: other (unable to assess per patient's condition.) Coordination/Gait: other (unable to assess per patient's condition.) Motor/Sensory: other (unable to assess per patient's condition.) Neurologic: other (unable to assess per patient's condition.) Integumentary: rash (under bilateral breast.). negative: abrasion(s), ecchymosis, erythema, jaundice Psych/Mental Status: other (lethargic). negative: anxious Progress - PLAN OF CARE/RESULTS Progress/Plan/Lab Results: Vital Signs - 8 hr 04/16/19 14:18 04/16/19 14:34 Pulse Rate 80 60 Respiratory Rate 16 16 Blood Pressure 85/76 O2 Sat by Pulse Oximetry 100 0 L Laboratory Results - last 24 hr 04/16/19 04/16/19 04/16/19 14:30 15:00 15:00 WBC RBC Hgb Hct MCV MCH MCHC RDW Std Deviation Plt Count MPV Immature Gran % (Auto) Neut % (Auto) Lymph % (Auto) Yell % (Auto) Eos % (Auto) Baso % (Auto) Immature Gran # (Auto) Neut # (Auto) Lymph # (Auto) Yell # (Auto) Eos # (Auto) Baso # (Auto) PT INR PTT (Actin FS) Specimen Type ARTERIAL Sample Site R RADIAL pH 7.35 pCO2 49 H pO2 358 H HCO3 25.7 Base Excess 0.9 Oxyhemoglobin 97.9 ABG O2 Sat (Calculated) 16.9 ABG O2 Saturation 100.6 H ABG Carboxyhemoglobin 2.10 ABG Methemoglobin 0.5 Abdirahman Test YES A-a O2 Difference 294.0 Total Hemoglobin 11.6 Lactate 4.50 H Blood Gas Modality ROOM AIR Spontaneous Rate 16 FiO2 % 100.0 Tidal Volume 450 PEEP 5.0 Sodium Potassium Chloride Carbon Dioxide Anion Gap BUN Creatinine Estimated GFR/1.73 m2 BUN/Creatinine Ratio Glucose POC Glucose Calculated Osmolality Calcium Phosphorus Magnesium Total Bilirubin AST ALT Alkaline Phosphatase Creatine Kinase Creatine Kinase Index CK-MB (CK-2) Troponin T [id number] Pept Total Protein Albumin Globulin Albumin/Globulin Ratio Plasma Lactate TSH 0.18 L Plasma/Serum Ethyl Alc 0 04/16/19 04/16/19 04/16/19 15:00 15:00 15:00 WBC 11.84 H RBC 3.55 L Hgb 11.3 L Hct 36.1 L MCV 101.7 H MCH 31.8 H MCHC 31.3 L RDW Std Deviation 14.1 Plt Count 258 MPV 9.5 Immature Gran % (Auto) 1.1 H Neut % (Auto) 74.6 Lymph % (Auto) 19.3 L Yell % (Auto) 4.1 Eos % (Auto) 0.6 Baso % (Auto) 0.3 Immature Gran # (Auto) 0.13 H Neut # (Auto) 8.83 H Lymph # (Auto) 2.28 Yell # (Auto) 0.49 Eos # (Auto) 0.07 Baso # (Auto) 0.04 PT INR PTT (Actin FS) Specimen Type Sample Site pH pCO2 pO2 HCO3 Base Excess Oxyhemoglobin ABG O2 Sat (Calculated) ABG O2 Saturation ABG Carboxyhemoglobin ABG Methemoglobin Abdirahman Test A-a O2 Difference Total Hemoglobin Lactate Blood Gas Modality Spontaneous Rate FiO2 % Tidal Volume PEEP Sodium 143 Potassium 4.7 Chloride 99 Carbon Dioxide 30 Anion Gap 14 BUN 10 Creatinine 1.4 H Estimated GFR/1.73 m2 38 BUN/Creatinine Ratio 7 Glucose 171 H POC Glucose Calculated Osmolality 288 Calcium 8.5 L Phosphorus 5.5 H Magnesium 1.8 Total Bilirubin 0.58 AST 203 H ALT 82 H Alkaline Phosphatase 141 H Creatine Kinase 304 H Creatine Kinase Index 0.6 CK-MB (CK-2) 1.77 Troponin T [id number] Pept Total Protein 6.3 Albumin 3.7 Globulin 2.6 Albumin/Globulin Ratio 1.4 Plasma Lactate 4.0 H TSH Plasma/Serum Ethyl Alc 04/16/19 04/16/19 04/16/19 15:00 15:00 15:00 WBC RBC Hgb Hct MCV MCH MCHC RDW Std Deviation Plt Count MPV Immature Gran % (Auto) Neut % (Auto) Lymph % (Auto) Yell % (Auto) Eos % (Auto) Baso % (Auto) Immature Gran # (Auto) Neut # (Auto) Lymph # (Auto) Yell # (Auto) Eos # (Auto) Baso # (Auto) PT 52.6 H INR 5.37 PTT (Actin FS) 45.4 H Specimen Type Sample Site pH pCO2 pO2 HCO3 Base Excess Oxyhemoglobin ABG O2 Sat (Calculated) ABG O2 Saturation ABG Carboxyhemoglobin ABG Methemoglobin Abdirahman Test A-a O2 Difference Total Hemoglobin Lactate Blood Gas Modality Spontaneous Rate FiO2 % Tidal Volume PEEP Sodium Potassium Chloride Carbon Dioxide Anion Gap BUN Creatinine Estimated GFR/1.73 m2 BUN/Creatinine Ratio Glucose POC Glucose Calculated Osmolality Calcium Phosphorus Magnesium Total Bilirubin AST ALT Alkaline Phosphatase Creatine Kinase Creatine Kinase Index CK-MB (CK-2) Troponin T < 0.010 Mxc-K-Ohsvifvzzis Pept 4294 H Total Protein Albumin Globulin Albumin/Globulin Ratio Plasma Lactate TSH Plasma/Serum Ethyl Alc 04/16/19 15:49 WBC RBC Hgb Hct MCV MCH MCHC RDW Std Deviation Plt Count MPV Immature Gran % (Auto) Neut % (Auto) Lymph % (Auto) Yell % (Auto) Eos % (Auto) Baso % (Auto) Immature Gran # (Auto) Neut # (Auto) Lymph # (Auto) Yell # (Auto) Eos # (Auto) Baso # (Auto) PT INR PTT (Actin FS) Specimen Type Sample Site pH pCO2 pO2 HCO3 Base Excess Oxyhemoglobin ABG O2 Sat (Calculated) ABG O2 Saturation ABG Carboxyhemoglobin ABG Methemoglobin Abdirahman Test A-a O2 Difference Total Hemoglobin Lactate Blood Gas Modality Spontaneous Rate FiO2 % Tidal Volume PEEP Sodium Potassium Chloride Carbon Dioxide Anion Gap BUN Creatinine Estimated GFR/1.73 m2 BUN/Creatinine Ratio Glucose POC Glucose 166 H D Calculated Osmolality Calcium Phosphorus Magnesium Total Bilirubin AST ALT Alkaline Phosphatase Creatine Kinase Creatine Kinase Index CK-MB (CK-2) Troponin T Ctg-K-Dlnakrtumrl Pept Total Protein Albumin Globulin Albumin/Globulin Ratio Plasma Lactate TSH Plasma/Serum Ethyl Alc Orders Category Date Time Status Finger Stick Blood Sugar (ED) DIRECTED Care 04/16/19 14:29 Active Giraldo Cath Insertion ORDERED Care 04/16/19 14:29 Active NG/OG/Feeding Tube Insertion ORDERED Care 04/16/19 14:33 Active Saline Loc NOW Care 04/16/19 14:29 Active CHEST-PORTABLE [RAD] Stat Exams 04/16/19 15:[address] HEAD W/O CONTRAST [CT] Stat Exams 04/16/19 14:31 Completed ABG [RESP] Routine Lab 04/16/19 14:30 Completed ALCOHOL BLOOD Stat Lab 04/16/19 15:00 Completed BLOOD CULTURE [BLDCUL] Stat Lab 04/16/19 15:28 Results CBC WITH ELECTRONIC DIFF [HEME] Stat Lab 04/16/19 15:00 Completed CK PROFILE [SP CHEM] Stat Lab 04/16/19 15:00 Completed CMP [COMPREHENSIVE METABOLIC PANEL] [CHEM] DAILY Lab 04/17/19 06:00 Ordered CMP [COMPREHENSIVE METABOLIC PANEL] [CHEM] DAILY Lab 04/18/19 06:00 Ordered CMP [COMPREHENSIVE METABOLIC PANEL] [CHEM] DAILY Lab 04/19/19 06:00 Ordered COMPREHENSIVE METABOLIC PANEL [CHEM] Stat Lab 04/16/19 15:00 Completed LACTATE, PLASMA [CHEM] Q3H Lab 04/16/19 18:00 Uncollected LACTATE, PLASMA [CHEM] Q3H Lab 04/16/19 21:00 Uncollected LACTATE, PLASMA [CHEM] Stat Lab 04/16/19 15:00 Completed MAGNESIUM [CHEM] Stat Lab 04/16/19 15:00 Completed PRO B-NATRIURETIC PEPTIDE Stat Lab 04/16/19 15:00 Completed PROTIME WITH INR [COAG] Stat Lab 04/16/19 15:00 Completed PTT [COAG] Stat Lab 04/16/19 15:00 Completed TROPONIN T Stat Lab 04/16/19 15:00 Completed TSH Stat Lab 04/16/19 15:00 Completed URINALYSIS W/POSS RFLX CULT [URINALYSIS] Stat Lab 04/16/19 14:30 Uncollected URINE DRUG SCREEN Stat Lab 04/16/19 14:30 Uncollected phos [PHOSPHORUS] [CHEM] Stat Lab 04/16/19 15:00 Completed 0.9% Sodium Chloride Inj [Ns] 1,000 ml Med 04/16/19 14:30 Discontinued .ROUTE As directed 0.9% Sodium Chloride Inj [Ns] 1,000 ml Med 04/16/19 14:31 Discontinued IV 999 mls/hr 0.9% Sodium Chloride Inj [Ns] 1,000 ml Med 04/16/19 14:32 Discontinued IV 999 mls/hr 0.9% Sodium Chloride Inj [Ns] 1,000 ml Med 04/16/19 15:34 Discontinued IV 999 mls/hr 0.9% Sodium Chloride Inj [Ns] 1,000 ml Med 04/16/19 18:49 Active IV 999 mls/hr 0.9% Sodium Chloride Inj [Ns] 500 ml Med 04/16/19 15:35 Discontinued IV 999 mls/hr Atropine Syringe Med 04/16/19 15:30 Discontinued 1 mg IV ONCE ONE Calcium Chloride Syringe Med 04/16/19 14:31 Discontinued 1 gm IV NOW ONE Dextrose 5%-0.45% NaCl Inj [D5 1/2 Ns] 250 ml Med 04/16/19 16:15 Active Norepinephrine [Levophed] 8 mg IV As Directed mls/hr Dextrose 5%-0.45% NaCl Inj [D5 1/2 Ns] 250 ml Med 04/16/19 16:15 Discontinued Norepinephrine [Levophed] 8 mg IV As Directed mls/hr Epinephrine Syringe Med 04/16/19 14:33 Discontinued 1 mg IV NOW ONE Epinephrine Syringe Med 04/16/19 14:34 Discontinued 1 mg IV NOW ONE Etomidate [Amidate] Med 04/16/19 14:32 Discontinued 20 mg IV NOW ONE Etomidate [Amidate] Med 04/16/19 14:11 Discontinued 40 mg .ROUTE .STK-MED ONE Furosemide [Lasix] Med 04/16/19 16:02 Discontinued 80 mg IV NOW ONE Lorazepam [Ativan] Med 04/16/19 15:13 Discontinued 4 mg IM NOW ONE Midazolam [Versed] Med 04/16/19 14:11 Discontinued 5 mg .ROUTE .STK-MED ONE Piperacillin/Tazobactam [Zosyn] 4.5 gm Med 04/16/19 15:35 Discontinued 0.9% Sodium Chloride Inj [Ns] 100 ml IV NOW Propofol [Diprivan 1%] Med 04/16/19 14:30 Discontinued 1,000 mg in 100 ml .ROUTE As directed Propofol [Diprivan 1%] Med 04/16/19 14:45 Active 1,000 mg in 100 ml IV As Directed mls/hr Sodium Bicarbonate 8.4% Med 04/16/19 14:31 Discontinued 50 meq IV NOW ONE Sodium Bicarbonate 8.4% Med 04/16/19 14:32 Discontinued 50 meq IV NOW ONE Succinylcholine [Quelicin] Med 04/16/19 14:32 Discontinued 100 mg IV NOW ONE Succinylcholine [Quelicin] Med 04/16/19 14:11 Discontinued 200 mg .ROUTE .STK-MED ONE Vancomycin 1 gm/Ns Med 04/16/19 15:35 Discontinued 1 gm in 250 ml IV NOW Vecuronium [Norcuron] Med 04/16/19 14:11 Discontinued 10 mg .ROUTE .STK-MED ONE EKG [EKG] Stat Ther 04/16/19 14:29 Ordered Limited Echocardiogram Routine Ther 04/17/19 08:00 Ordered Transfer/Admit Order [TRANSFER] Routine Transfer 04/16/19 17:[address] Trevino consulted with patient's family about patient's current condition. 1700 - Dr. Saunders, Department Helper, at bedside with patient. Result Diagrams: 04/16/19 15:00 04/16/19 15:00 - REASSESSMENT Reassessment #1 Time Reassessed: 16:27 Status: improving (On Pacemaker, BP is supported by IVF and Levaphed. With recent hospitalization and elevated lactate, will treat for sepsis IV v anc/zosyn.) - EKG 1 Time of EKG reading by physician:: 16:16 EKG Read and Signed by:: Lenny Trevino EKG Interpretation (*Must complete 3 of following elements*): Abnormal (pacemaker artifact) Rate: 70 Rhythm: paced rhythm QRS: other (wide QRS) ST Wave: non-specific ST changes - XRAY 1 XRAY Study: Chest Impression: See EMR Report ( EXAM: CHEST-PORTABLE 04/16/2019 HISTORY: Central line placement TECHNIQUE: AP portable at 1543 COMMENT: There is an endotracheal tube with its tip at thoracic inlet and a right subclavian catheter with its tip in the superior vena cava. The inspiration is suboptimal. There is increased interstitial opacity present in both lung bases. This is worse than on 03/20/2019. The pulmonary vascularity is also increased. There is no evidence of pneumothorax. There may be small bilateral pleural effusions. IMPRESSION: Pulmonary edema pleural effusions and pulmonary vascular congestion. Electronically signed by Raymon Bradford 04/16/2019 3:53 PM 04/16/19 1553 Interpreting Physician: Raymon Bradford MD Dictated Date/Time: 04/16/19 1552 cc: Lenny Trevino MD; Aneudy Jimenez MD) - CONSULTS/PCP/HOSPITALIST Notification #1 *Consult/PCP/Hospitalist*: Dr. Saunders Time Discussed: 16:09 Reason/Comments: Dr. Trevino consulted with Dr. Saunders about patient. Consult Disposition: Will see in ED #2 Consult: TIFFANIE Neville for Hospitalist Time Discussed: 17:45 (Dr. Browne accepted admit ) Reason/Comments: Dr. Trevino consulted with Kelin about patient. Consult Disposition: Will see in ED, Admit Procedures - CENTRAL LINE Central Line Lumen: triple Central Line Procedure Prep: Hand Hygeine Performed, Kit Utilized, Sterile Body Drape Placed Patient Position (To prevent Air Embolism): Trendelenburg (SC/IJ) Central Line Position: subclavian (R) Ultrasound Guided?: No Hat, mask, sterile gown, & sterile gloves worn by physician?: Yes Site scrubbed vigorously for 30 seconds? (Groin: 2 min): Yes Anesthetic: 1%, Lidocaine/Xylocaine Volume of Anesthetic (ml's): 5 Post Procedure: Sutured in place (2.0), Blood aspirated from each lumen Complications: none - INTUBATION Time of Intubation: 14:16 Intubation Method: orotracheal Equipment: ETT Tube Size (cm): 7.5 Pretreated with 100% Oxygen?: Yes Breath Sounds after Intubation: equal ETT Primary Tube Confirmation: Capnometry CO2 Change, Direct Visualization Vent Settings: See Respiratory Therapy Notes Departure - Departure Date of Disposition Decision: 04/16/19 Time of Disposition Decision: 17:45 DIAGNOSIS: Junctional bradycardia, Severe sepsis, Anticoagulated on Coumadin Altered mental status Qualifiers: Altered mental status type: stupor Qualified Code(s): R40.1 - Stupor Hypotension Qualifiers: Hypotension type: hypotension due to drug Qualified Code(s): I95.2 - Hypotension due to drugs CHF (congestive heart failure), NYHA class III Qualifiers: Congestive heart failure type: combined Congestive heart failure chronicity: acute on chronic Qualified Code(s): I50.43 - Acute on chronic combined systolic (congestive) and diastolic (congestive) heart failure Disposition: ADMITTED INPATIENT 09 Certified Medical Emergency: Emergent Condition: Critical Referrals and Follow-Ups: Aneudy Jimenez MD [Primary Care Provider] - - Critical Care Note This patient required my direct & personal management of CC.: Yes Total Time (mins): 65 Critical Care Statement: This patient required my direct personal management to treat or rule out processes, the absence of which, could potentiallly result in sudden, clinically significant life or limb threatening deterioration. Attestation - Physician/ CRYSTAL Attestation Patient care was provided by Advanced Practice Provider:: No The physician spent face to face time with patient:: Yes Advanced Practice Provider documentation review:: Supervising physician onsite and consulted in the evaluation and care of this patient. The physician did have a face to face encounter with the patient. This chart was documented by the indicated scribe, (Abena Valdivia Scribe) and accurately reflects the services I performed and decisions made by me, Lenny Trevino MD, as attested by the provider's signature.
[2019-04-16 19:36] LABS: URINE SOURCE CATH
[2019-04-16 19:39] LABS: BILIRUBIN URINE NEGATIVE (NEGATIVE); BLOOD URINE LARGE (NEGATIVE); COLOR YELLOW; GLUCOSE URINE TRACE mg/dL (NEGATIVE); KETONE URINE NEGATIVE (NEGATIVE); LEUKOCYTES URINE NEGATIVE (NEGATIVE); NITRITE URINE NEGATIVE (NEGATIVE); PH URINE 6.5; PROTEIN URINE 300 mg/dL (NEGATIVE); SP GRAVITY URINE 1.014; TURBIDITY URINE HAZY (CLEAR); UROBILINOGEN URINE 2 mg/dL (NORMAL)
[2019-04-16 19:43] LABS: UR EPITHELIAL CELLS >10 /HPF (<10); URINE BACTERIA NEGATIVE /HPF; URINE RBC <10 /HPF (<10)
[2019-04-16 19:52] LABS: UR AMPHETAMINES QUAL NONE DETECTED (NONE DETECT); UR BARBITUATES QUAL NONE DETECTED (NONE DETECT); UR BENZODIAZEPIN QUAL PRESUMPTIVE POSITIVE (NONE DETECT); UR CANNABINOIDS QUAL NONE DETECTED (NONE DETECT); UR COCAINE QUAL NONE DETECTED (NONE DETECT); UR METHADONE QUAL NONE DETECTED (NONE DETECT); UR OPIATES QUAL NONE DETECTED (NONE DETECT); UR OXYCODONE QUAL NONE DETECTED (NONE DETECT); UR PCP QUAL NONE DETECTED (NONE DETECT)
[2019-04-16 19:53] LABS: URINE YEAST NONE SEEN
[2019-04-16 19:54] LABS: URINE CASTS NONE SEEN; URINE CRYSTALS NONE SEEN; URINE SMALL ROUND CELLS TRANS PRESENT
[2019-04-16] MEDS ORDERED: VANCOMYCIN 1 GM/NS 1 GM/250 ML IVPB ONE (19:54)
--- NOTE | 2019-04-16 20:47 | HISTORY AND PHYSICAL ---
ADDENDUM: This is an addendum to the History and Physical dictated by the nurse practitioner. I agree with most components of history, physical, assessment, and plan. In brief, Ms. Hays is a 63-year-old lady, with past medical history of atrial fibrillation with rapid ventricular rate on home Eliquis, suspected dementia with behavioral disturbance and mood disorder, requiring [facility] admission, chronic GERD, who was brought in by Emergency Medical Services as the patient's reported altered mental status. When EMS arrived, patient's heart rate was noticed to be in 20s to 30s, and EMS had started pacing her transcutaneously. When she came to the emergency room, she was unresponsive and she was intubated. She was given calcium gluconate, multiple intravenous fluids because of significant hypotension, with systolic blood pressure in 60s and diastolic in 40s, and she was emergently intubated. Cardiology was consulted and she was started on transcutaneous pacing. Hospitalist services were consulted for further management. SUBJECTIVE: Patient is, at the time of my evaluation, intubated and does not respond to commands; however, she is squeezing her eyes. At the time of my evaluation, patient's daughter is at bedside. She states that the patient was alert and oriented x3 yesterday; however, she has been sleeping for about 5 hours today. PHYSICAL EXAMINATION: VITAL SIGNS: Currently, her pulse is paced at rate of 70 per minute. Her blood pressure appears 90 systolic over 60 diastolic. She is on the ventilator. Saturation 99%. GENERAL: Morbidly obese, not in acute distress. ORAL CAVITY: Moist. EYES: Pupils bilaterally equal, reacting to light. LUNGS: Air entry bilaterally equal. No wheeze, rhonchi, crackles. HEART: S1, S2, appears bradycardic. She has pacer pads on chest. She also has a right-sided central line. ABDOMEN: Obese, nontender. EXTREMITIES: She has bilateral lower extremity edema. LABS: Suggestive of leukocytosis, macrocytic anemia, normal platelet count, elevated INR. ABGs suggest acceptable range of pH, pCO2 and pO2. She does have acute kidney injury, transaminitis, and elevated proBNP. MICROBIOLOGY: Blood cultures are in Lab. ASSESSMENT: 1. Acute encephalopathy, likely because of profound hypotension. 2. Profound hypotension and shock in the setting of suspected heart block, and significant bradycardia in the setting of use of atrioventricular maritza blocking agents as well as multiple other psychiatric medications. 3. Suspected septic shock, considering leukocytosis, pending further blood test results. 4. Acute kidney injury. 5. History of atrial fibrillation with rapid ventricular rate. PLAN: 1. The patient has received intravenous fluid resuscitation. 2. I will continue patient on norepinephrine. 3. Cardiology has been consulted for her bradycardia. 4. Will continue transcutaneous pacing with goal heart rate of more than 70. 5. I will also follow up with CT scan head to rule out any acute intracranial hemorrhage, since the patient has elevated INR and she was on Eliquis. If the head CT is unremarkable, I am going to place admission order to ICU. 6. Plan of care discussed with the patient's daughter at bedside. All of their questions have been answered. 7. I will also follow up with blood culture results and start her on broad-spectrum antibiotics. cc: Jay Browne MD
[2019-04-16] MEDS ORDERED: VANCOMYCIN IV PER PHARMACY MISC SCH (21:21)
[2019-04-16] MEDS ORDERED: ZOFRAN IV PRN (21:21)
--- NOTE | 2019-04-16 21:47 | HISTORY AND PHYSICAL ---
CHIEF COMPLAINT: Unresponsive. HISTORY OF PRESENT ILLNESS: Ms. Hays is a 63-year-old female, who has a past medical history of paroxysmal atrial fibrillation, chronic pain, and obesity, hypertension, narcolepsy, degenerative disk disease, hypothyroidism that has been subclinically hyperthyroidism, Alzheimer's type dementia with behavioral disturbance, who had recently been having issues with atrial fibrillation with RVR. She was treated and sent home on antiarrhythmics. Per 's report at the bedside, the patient had been talking in her sleep, which is unusual for her. She had been talking to her parents who are both , and telling him that she was going to . They got up, took their medications. She got up in the recliner and had been asleep for a few hours. The had fallen asleep during this time as well. Their certified social workers in health care had come by for a visit because they could not get either democrat on the phone, and they were not able to wake Ms. Hays up, so 911 was called. She was brought to the ED and was found to have a junctional bradycardia. She was placed on transcutaneous pacing. She was subsequently resuscitated with medications and intubated, and was evaluated by Cardiology and found to have underlying rhythm of 50 beats per minute, and ultimately required Levophed drip for profound hypotension. Head CT did not show any hemorrhage. Laboratory data did show a slightly elevated white count, elevated liver function tests, elevated proBNP. Her TSH was low at 0.18. Chest x-ray showed pulmonary edema, pleural effusion. She did receive 80 of Lasix after fluid boluses. Her lactate was 4.0. She was treated with broad-spectrum antibiotics after, I believe, being discharged from [facility] this month for her Alzheimer's dementia and behavioral disturbances. PAST MEDICAL HISTORY: 1. Paroxysmal atrial fibrillation. Recent admission to [facility] where she has been on beta blockers and flecainide. 2. Alzheimer's dementia with behavioral disturbances. 3. Morbid obesity. SOCIAL HISTORY: She is . She lives with her . No alcohol, tobacco, or illicit drug use. FAMILY HISTORY: Positive for hypertension. REVIEW OF SYSTEMS: Unable to obtain secondary to the patient being intubated and sedated. PHYSICAL EXAMINATION: VITAL SIGNS: No temperature has been taken. The one and only set of vital signs showed a heart rate of 80, respirations 16, blood pressure of 85/76. HEENT: Atraumatic, normocephalic. PERRL. She does have poor dentition. NECK: Thick. Trachea appears midline. Did not appreciate any JVD. CV: S1, S2 could be appreciated. I could not tell if she had any murmurs, gallops, or rubs. Was hard to hear heart sounds. CHEST: Clear bilaterally, decreased in the bases. ABDOMEN: Obese, soft, nontender, nondistended. SKIN: Warm, dry, and intact. NEUROLOGIC: Patient is currently sedated on the ventilator with propofol. DIAGNOSTIC DATA: Head CT did not show any hemorrhage. Chest x-ray showed pulmonary edema with pleural effusions and pulmonary vascular congestion. LABORATORY DATA: White count of 11.8, hemoglobin and hematocrit of 11 and 36, platelet count of 258,000. PT of 52.6, PTT of 45.4, INR of 5, sodium 143, potassium 4.7, BUN 10, creatinine 1.4, blood glucose 171, magnesium 1.8, AST 203, ALT 82, alkaline phosphatase 141, CK 304, CK-MB 1.77, troponin less than 0.010, and proBNP was 4294. Plasma lactate was 4. TSH was 0.18. ASSESSMENT AND PLAN: 1. Unresponsiveness, believed to be secondary to hypotension due to bradycardic junctional rhythm. She is currently being transcutaneously paced. Junctional rhythm is believed to be secondary to flecainide, metoprolol, and possibly some of her psychiatric medications. Her flecainide and metoprolol will be discontinued. Possibly pacemaker in the future. We will recheck an echocardiogram in the morning. 2. Probable sepsis. The patient did have a lactate of 4. We will continue on broad-spectrum antibiotics in case the patient has any aspiration pneumonia that is not currently apparent on chest x-ray. We will continue to await her blood cultures. 3. Elevated INR at 5.3. Head CT was negative for any brain bleed. We will hold her aspirin and Eliquis. Her hemoglobin and hematocrit are stable. No overt signs of bleeding. 4. Hyperthyroidism. Patient's TSH was 0.18. Will recheck her free T4 and T3 in the morning. 5. Pulmonary edema and pleural effusions on x-ray, with elevated proBNP. She was given 80 of Lasix in the emergency room. On her last echocardiogram, she had a normal ejection. Again, we are going to recheck an echocardiogram in the morning. 6. Hypotension, secondary to number 1&2. Will continue on Levophed. 7. Alzheimer's dementia. Aware. 8. Obesity. Aware. 9. History of atrial fibrillation with rapid ventricular response. 10. Further recommendations to follow physician evaluation, laboratory and diagnostic data. The patient remains in critical condition. Family is aware that she may need a permanent pacemaker or transported to a higher facility of care at any time. CRITICAL CARE TIME SPENT: Greater than 35 minutes. Dictated by TIFFANIE Headley for Jay Browne MD cc: MD Donny Kraus MD Rodney W. Harney, MD I agree with most components of history, physical, assessment and plan. A separate addendum has been dictated. CATHI
[2019-04-16] MEDS: ZOSYN 3.375 GM in NS 50 ML IV SCH (23:20)
[2019-04-17] MEDS ORDERED: VANCOMYCIN 1,150 MG in NS 250 ML IV ONE (01:00)
[2019-04-17] MEDS: DIPRIVAN 1% 1,000 MG/100 ML BOTTLE IV SCH ×2 (01:46→07:59)
[2019-04-17] MEDS: ZOSYN 3.375 GM in NS 50 ML IV SCH ×4 (05:02→22:08)
[2019-04-17 05:31] LABS: ALLEN TEST YES; BE 6.5 mmoll (-3.0-3.0); BLOOD TYPE ARTERIAL; O2(CT) 17.1 mL/dL (15.0-23.0); O2HB 96.7 % (95.0-99.0); PCO2(98.6) 31 mmHg (35-45); PO2(98.6) 122 mmHg (60-100); SAMPLE BLOOD; SAO2 98.8 % (95.0-100.0); SRATE 16 BPM; THB 12.4 g/dL (11.5-17.4); TVOL 450 mL
[2019-04-17 05:33] LABS: MODALITY VENTILATOR; pH(98.6) 7.57 (7.35-7.45)
[2019-04-17 05:37] LABS: BASO# 0.03 X1000 (0.0-0.2); BASO% 0.3 % (0.0-0.8); EOS# 0.09 X1000 (0.0-0.7); EOS% 0.9 % (0.0-10.0); HEMATOCRIT 33.7 % (37.0-47.0); HEMOGLOBIN 10.9 g/dL (12.0-16.0); IMM GRAN# 0.04 X1000 (0.0-0.04); IMM GRAN% 0.4 % (0.0-0.5); LYMPH# 2.04 X1000 (1.2-3.4); LYMPH% 19.8 % (20.5-51.1); MCH 31.5 PG (27-31); MCHC 32.3 g/dL (33-37); MCV 97.4 FL (81-99); MONO# 0.56 X1000 (0.11-0.59); MONO% 5.4 % (1.7-9.3); MPV 9.7 FL (7.4-10.4); NEUT# 7.52 X1000 (1.4-6.5); NEUT% 73.2 % (42.2-75.2); PLT 264 X1000 (130-400); RBC 3.46 XMIL (4.2-5.4); RDW 13.9 % (11.5-14.5); WBC 10.28 X1000 (4.8-10.8)
[2019-04-17 06:10] LABS: INR 4.5; PROTIME 45.8 Seconds (11.0-16.0); PTT 51.6 Seconds (22.3-41.8)
[2019-04-17 06:19] LABS: ALBUMIN 2.9 g/dL (3.5-5.0); CALCIUM 7.8 mg/dL (8.8-10.2); CREATININE 1.3 mg/dL (0.5-0.9); MAGNESIUM 1.6 mg/dL (1.5-2.7); POTASSIUM 3.5 mmol/L (3.5-5.1); TOTAL BILIRUBIN 0.47 mg/dL (0.20-1.00); TOTAL PROTEIN 5.7 g/dL (6.3-8.3)
--- NOTE | 2019-04-17 07:01 | Diag Imaging Result Doc PS360 ---
EXAM: CHEST-PORTABLE 04/16/2019 HISTORY: NGT placement TECHNIQUE: AP portable at 2213 COMMENT: There is an endotracheal tube with its tip at the thoracic inlet. There is an NG tube with tip below the diaphragm. There is a right subclavian central venous catheter with its tip in the superior vena cava. The inspiration is suboptimal. There is bibasilar ill-defined opacity. This is similar to the previous study performed at 1543. IMPRESSION: Bibasilar atelectasis versus pneumonia. Electronically signed by Raymon Bradford 04/17/2019 6:58 AM
[2019-04-17] MEDS ORDERED: LASIX IV ONE (07:06)
--- NOTE | 2019-04-17 07:07 | Diag Imaging Result Doc PS360 ---
EXAM: CHEST-PORTABLE 04/17/2019 HISTORY: resp failure/vent TECHNIQUE: AP portable at 0508 COMMENT: There is an endotracheal tube with its tip at the thoracic inlet. There is a right subclavian central venous catheter with its tip in the superior vena cava. There is an NG tube which passes below the diaphragm. There is hazy opacity in both lower lobes and blunting the costophrenic angles. Compared to 04/16/2019, this is slightly worse. IMPRESSION: Worsened pleural effusions and atelectasis versus pneumonia. The possibility of mild pulmonary edema cannot be excluded. Electronically signed by Raymon Bradford 04/17/2019 7:04 AM
[2019-04-17] MEDS: POTASSIUM CHLORIDE 20 MEQ/SWI 20 MEQ/100 ML IVPB IV SCH ×2 (08:28→10:09)
[2019-04-17] MEDS: MAGNESIUM SULFATE 2 GM/S.W.I. 2 GM/50 ML IVPB IV SCH ×2 (08:28→10:17)
--- NOTE | 2019-04-17 09:08 | EKG Report ---
Test Performed on : 04/17/2019 08:07:32 AM Test Reason : bradycardia Blood Pressure : / mmHG Vent. Rate : 050 BPM Atrial Rate : 050 BPM P-R Int : 216 ms QRS Dur : 094 ms QT Int : 602 ms P-R-T Axes : 077 -16 -33 degrees QTc Int : 548 ms Sinus bradycardia. with 1st degree AV block. Low voltage QRS Septal infarct , age undetermined Abnormal ECG When compared with ECG of 18-MAR-2019 09:02, T wave inversion now evident in Inferior leads Nonspecific T wave abnormality now evident in Anterolateral leads QT has lengthened Confirmed by Jose CALVILLO, Manuel Reece ([id number]) on 04/20/2019 11:29:17 AM
[2019-04-17 11:25] LABS: ALLEN TEST YES; BE 7.1 mmoll (-3.0-3.0); BLOOD TYPE ARTERIAL; HCO3-(ACT) 30.5 mmoll (20.0-26.0); METHB 0.9 % (0.0-1.5); MODALITY VENTILATOR; O2(CT) 15.1 mL/dL (15.0-23.0); O2HB 96.9 % (95.0-99.0); PCO2(98.6) 49 mmHg (35-45); PO2(98.6) 137 mmHg (60-100); SAMPLE BLOOD; THB 10.9 g/dL (11.5-17.4); pH(98.6) 7.43 (7.35-7.45)
--- NOTE | 2019-04-17 11:26 | PROGRESS NOTE ---
DATE: 04/16/2019 INTERVAL HISTORY: Ms. rhoades was admitted for hypotensive cardiogenic shock because of bradycardia requiring intubation for protection of airway. Overnight she continues to remain paced. SUBJECTIVE: She is intubated, not in any acute distress. VITALS: Temperature is 97.3 degrees, She does have edema bilateral upper and lower extremities. Brachial pulses in synchrony with the monitor. It is at 50 per minute, completely paced. She is intubated. Air entry bilaterally equal no wheeze, rhonchi, crackles. Cardiovascular:S1, S2 normal. Bradycardic. No murmur or gallop. Abdomen is soft, obese, nontender. She has bilateral lower extremity edema. LABS: No leukocytosis, normocytic anemia, normal platelet count, pH is 7.5, pCO2 31, PO2 is 122 on 40% FiO2. She does have hyponatremia, low potassium and low magnesium, which is being repleted. Elevated creatinine. Microbiology sputum culture, blood culture, urine culture no growth to date. IMAGING: Chest x-ray performed today morning has worsened pleural effusions and atelectasis versus pneumonia. There is mild pulmonary edema as well. Labs otherwise is unremarkable. ASSESSMENT AND PLAN: 1. Cardiogenic shock in the setting of suspected heart block and bradycardia in the setting of use of beta rebecca and flecainide for atrial fibrillation as well as the Loxitane, ropinirole for her mood disorder and Alzheimer disease with behavioral disturbance. Continue transcutaneous pacing as per Cardiology recommendation. Continue to hold agents that could potentially cause bradycardia and continue norepinephrine to maintain MAP more than 65 mmHg. Her potassium and magnesium is being repleted. 2. Acute respiratory failure and requiring intubation on April 16 for airway protection with bilateral infiltrates suspicious of pneumonia. It is possible she might have had aspiration while she had a syncope episode leading to pneumonia and septic shock. Previously she did have Pseudomonas and Klebsiella pneumoniae urinary tract infections. I will continue intravenous Zosyn and I will follow up final sputum culture and blood culture results. 3. Alzheimer disease with dementia with behavioral disturbance. I am holding her home mirtazapine, duloxetine, and ropinirole for now. I am also holding her quetiapine. DISPOSITION: Patient's condition remains critical. She is in the ICU. Pulmonology on board for ventilator management. I will appreciate Cardiology recommendation if she would be a candidate for permanent pacemaker in future if her bradycardia does not resolve. Plan of care was discussed with the patient's daughter at bedside yesterday. All of her questions have been answered. TIME SPENT: More than 30 minutes was spent in taking care of critical care of this patient. cc: Jay Browne MD MTDD
[2019-04-17] MEDS: APRESOLINE IV PRN (11:41)
[2019-04-17] MEDS: MORPHINE IV PRN ×2 (14:02→23:02)
[2019-04-17] MEDS ORDERED: VANCOMYCIN IV PER PHARMACY MISC SCH (15:00)
--- NOTE | 2019-04-17 15:09 | ECHO REPORT ---
ORDER DATE: 04/17/2019 INDICATION: Bradycardia. FINDINGS: 1. The right atrium appears normal in size. 2. Moderate tricuspid regurgitation. RV systolic pressure of 44. 3. Likely normal RV systolic function with a very poor visualization of the right ventricle. 4. No significant pulmonic insufficiency. 5. Normal left atrial size. 6. No mitral valve prolapse. Trace mitral regurgitation. 7. Normal LV size. Cannot estimate LV wall thicknesses based on poor visualization of the endocardial borders. Likely normal LV systolic function, again with poor resolution of the endocardial borders. The estimated ejection fraction appears to be greater than 55%. 8. Aortic valve opens well. No evidence of stenosis or insufficiency. 9. Aorta appears normal in visualized segments. 10. No pericardial effusion is identified. cc: Donny Saunders MD
--- NOTE | 2019-04-17 15:46 | CARDIOLOGY PROGRESS NOTE ---
DATE: 04/17/2019 SUBJECTIVE: Since seeing her this morning, she has been extubated. She has no complaints. PHYSICAL EXAMINATION: Vital signs: She is afebrile. Heart rates are in the 60s. Blood pressure 131/48. General: She is in no acute distress. Cardiovascular: She sounds to be in a regular rate and rhythm. Telemetry currently shows sinus. She has no lower extremity edema. Chest: Clear bilaterally. She has no increased work of breathing. Abdomen: Soft, nontender. PERTINENT DATA: Her echo was relatively poor quality but seemed to show a preserved ejection fraction. Lab data shows a white count of 10.2, hematocrit 33, platelet count 264,000. Her INR is 4.5. Her sodium is 146, potassium is 3.5, BUN 13, creatinine is 1.3. ASSESSMENT: Ms. Hays is a 63-year-old female who presented with bradycardia and has a history of atrial fibrillation. PLAN: We do not have any documentation from the ambulance regarding what her presenting rhythm was. Presumably, it was a junctional bradycardia. By the time I saw her, she was actually in sinus rhythm at around 50 beats per minute. I do not have any EKG data on the original rhythm as the initial EKG was paced. Presumably, her bradycardia was secondary to medications as she was on flecainide, metoprolol and a number of other medications which could possibly interact, causing more profound bradycardia. In the future, she likely needs one of the new oral anticoagulants such as Xarelto or Eliquis considering her INR was supratherapeutic and she is likely not a very reliable medication taker. I would withhold AV maritza blocking agents presently. The transcutaneous pacing pads can be removed. cc: Donny Saunders MD
[2019-04-17] MEDS ORDERED: VANCOMYCIN 2 GM in NS 500 ML IV ONE (16:00)
--- NOTE | 2019-04-17 19:12 | PULMONOLOGY CONSULTATION ---
DATE: 04/17/2019 REQUESTING PHYSICIAN: Dr. Browne. REASON FOR CONSULTATION: Respiratory failure. HISTORY OF PRESENT ILLNESS: Ms. Hays is a 63-year-old white female, with no tobacco use or prior pulmonary history, who has a component of dementia, who has atrial fibrillation. The patient was found unresponsive by her and EMS was called. She was significantly bradycardic on arrival and EMS placed an external pacemaker. The patient was in respiratory distress with some decreased respiratory effort, and was intubated and initiated on mechanical ventilation. The patient has been evaluated by Cardiology and her bradycardia is felt to be related to the interaction of multiple medications. The patient is now arousable. She does have a spontaneous respiratory effort. She is on propofol which is being held upon my arrival. PAST MEDICAL HISTORY: Problem list: 1. Paroxysmal atrial fibrillation with history of rapid ventricular response. 2. Obesity. 3. Dementia. 4. Hypertension. 5. History of childhood asthma. 6. Status post gastric bypass. SOCIAL HISTORY: No tobacco or alcohol use listed. FAMILY HISTORY: Not contributory to current presentation. REVIEW OF SYSTEMS: Could not be obtained. PHYSICAL EXAMINATION: General: An obese white female who appears to be comfortable on mechanical ventilation. She has been placed on a spontaneous breathing trial and has a good respiratory effort. Vital Signs: BP 107/52, heart rate 61, respiratory rate 17, oxygen saturation 98%. HEENT: Pupils are equal and reactive. Oropharynx appears clear. Neck: Supple. Chest: Crackles in both lung bases. Cardiac: S1, S2. Abdomen: Obese and soft. Extremities: Trace edema. LABORATORIES: Arterial blood gas at 5:21 this morning: PH 7.57, pCO2 of 31, pO2 of 122, and a lactate of 2.3. Sodium 146, potassium 3.5, chloride 105, bicarbonate 28, BUN 13, creatinine 1.2. Chest x-ray reveals blunting of both lung bases and probable mild edema. IMPRESSION: A 63-year-old with: 1. Acute hypoxemic respiratory failure. 2. Bradycardia, likely iatrogenic in origin. 3. Morbid obesity. 4. Altered mental status. PLAN: 1. Hold sedation and initiate a spontaneous breathing trial. 2. Cardiology management for bradycardia. 3. Anticipate extubation later today. cc: Vernon Robledo MD
[2019-04-17] MEDS: ATIVAN IV PRN (22:19)
[2019-04-18] MEDS ORDERED: VANCOMYCIN 1,500 MG in NS 250 ML IV SCH (01:00)
[2019-04-18] MEDS: ZOSYN 3.375 GM in NS 50 ML IV SCH ×2 (03:32→09:26)
[2019-04-18] MEDS: APRESOLINE IV PRN (03:32)
[2019-04-18 04:40] LABS: BE 8.5 mmoll (-3.0-3.0); BLOOD TYPE ARTERIAL; HCO3-(ACT) 31.5 mmoll (20.0-26.0); METHB 0.9 % (0.0-1.5); PCO2(98.6) 43 mmHg (35-45); PO2(98.6) 136 mmHg (60-100); SAMPLE BLOOD; SAO2 98.5 % (95.0-100.0); THB 11.7 g/dL (11.5-17.4); pH(98.6) 7.49 (7.35-7.45)
[2019-04-18 04:41] LABS: ALLEN TEST YES; MODALITY COOL AEROSOL; O2(CT) 16.1 mL/dL (15.0-23.0); O2HB 96.5 % (95.0-99.0)
[2019-04-18 06:18] LABS: BASO# 0.04 X1000 (0.0-0.2); BASO% 0.3 % (0.0-0.8); EOS# 0.21 X1000 (0.0-0.7); EOS% 1.7 % (0.0-10.0); HEMOGLOBIN 10.2 g/dL (12.0-16.0); IMM GRAN# 0.05 X1000 (0.0-0.04); IMM GRAN% 0.4 % (0.0-0.5); LYMPH% 12.4 % (20.5-51.1); MCH 31.8 PG (27-31); MCHC 31.9 g/dL (33-37); MCV 99.7 FL (81-99); MONO# 0.65 X1000 (0.11-0.59); MONO% 5.4 % (1.7-9.3); MPV 9.9 FL (7.4-10.4); NEUT# 9.64 X1000 (1.4-6.5); NEUT% 79.8 % (42.2-75.2); PLT 229 X1000 (130-400); RBC 3.21 XMIL (4.2-5.4); RDW 14.2 % (11.5-14.5); WBC 12.09 X1000 (4.8-10.8)
[2019-04-18 06:35] LABS: AGAP 15; ALBUMIN 3.1 g/dL (3.5-5.0); ALKALINE PHOSPHATASE 108 U/L (32-104); BUN 10 mg/dL (8-22); CALCIUM 8.4 mg/dL (8.8-10.2); CHLORIDE 99 mmol/L (98-107); COSMO 285; CREATININE 0.9 mg/dL (0.5-0.9); ESTIMATED GFR > 60; GLUCOSE 87 mg/dL (70-104); GOT 209 U/L (10-30); GPT 85 U/L (10-36); POTASSIUM 3.4 mmol/L (3.5-5.1); SODIUM 144 mmol/L (136-145); TCO2 30 mmol/L (25-35); TOTAL BILIRUBIN 0.79 mg/dL (0.20-1.00); TOTAL PROTEIN 6.2 g/dL (6.3-8.3)
[2019-04-18] MEDS: MORPHINE IV PRN ×2 (07:45→17:17)
--- NOTE | 2019-04-18 09:25 | Diag Imaging Result Doc PS360 ---
CHEST-PORTABLE - 04/18/2019 INDICATION: resp failure/vent COMPARISON: 04/17/2019 FINDINGS: Endotracheal tube and nasogastric tube have been removed. Stable right central line in good position. The tip is in the upper SVC. There has been significant improvement in the bilateral lower lobe infiltrates. There is some persistent patchy infiltrate or atelectasis in the left lower lobe. Heart size remains normal. IMPRESSION: Extubation. Improvement in the bibasilar infiltrates. Electronically signed by Fred Jaimes 04/18/2019 9:22 AM
[2019-04-18] MEDS: LOPRESSOR PO SCH ×2 (09:26→21:03)
[2019-04-18] MEDS ORDERED: NS NEB INH SCH (10:00)
[2019-04-18] MEDS ORDERED: ATROVENT NEB INH SCH (10:00)
[2019-04-18] MEDS: XOPENEX NEB INH SCH ×5 (10:08→22:55)
[2019-04-18] MEDS: KLOR-CON PO SCH ×2 (11:15→15:00)
[2019-04-18] MEDS: ELIQUIS PO SCH ×2 (11:30→21:03)
--- NOTE | 2019-04-18 13:05 | PROGRESS NOTE ---
DATE: 04/18/2019 INTERVAL HISTORY: Patient was extubated yesterday, and some adjustments were made in her bedside transcutaneous pacer, following which she was able to maintain a normal sinus rhythm. No other acute events overnight. She has been off norepinephrine since yesterday. SUBJECTIVE: Patient is alert. She responds to most commands. She does have some baseline dementia and memory impairment; however, she is engaging in conversation. She denies any chest pain or shortness of breath at the moment, however, appears wheezy on examination. OBJECTIVE/PHYSICAL EXAMINATION: Vitals: Temperature of 98.6. Her T-max was 99.9 overnight. Pulse: She has atrial fibrillation on EKG with heart rate of 117. Respiratory rate 14, blood pressure 143/83, saturating 98% on 3 L nasal cannula. General: Morbidly obese, not in any acute distress. HEENT: Oral cavity is moist. No pallor, cyanosis, clubbing, or icterus. Lungs: End-expiratory wheezes bilaterally. No rhonchi. She does have mild bilateral crackles; however, examination is limited. Cardiovascular: S1, S2 normal. Irregularly irregular. No murmur, rub, or gallop. Abdomen: Soft, obese, nontender. Bilateral lower extremity edema. Musculoskeletal: She does have a right knee deformity. She is able to lift bilateral upper extremities above ground level, slightly restricted on right shoulder joint because of prior shoulder injury. She is not able to lift bilateral lower extremities above ground level, though. LABS: Suggestive of leukocytosis, normocytic anemia, normal platelet count. Her ABG suggests pO2 of 136 on 40% FiO2 on aerosol. She does have hypokalemia, which I will replete, and I will follow up with magnesium as well. MICROBIOLOGY: Initial blood culture growing gram-positive cocci. Sputum culture is pending. IMAGING: Suggestive of persistent left lower lobe opacity or pneumonia. ASSESSMENT AND PLAN: 1. Cardiogenic shock in the setting of suspected heart block or hemodynamically significant bradycardia in the setting of use of use of beta rebecca and flecainide for her history of atrial fibrillation, as well as ropinirole and duloxetine for her history of Alzheimer disease with behavioral disturbance, now resolved. She is no longer requiring transcutaneous pacing or norepinephrine. Continue to hold AV maritza rebecca agent as possible. 2. Acute respiratory failure requiring intubation on April 16 for airway protection with bilateral lower lobe pneumonia and septic shock. Continue intravenous vancomycin. Stop intravenous Zosyn. Follow up final blood culture and sputum culture results as well as repeat blood culture results. She was extubated on 04/17/2019. 3. Atrial fibrillation with rapid ventricular rate. I will start her on metoprolol and titrate the dose according to her response. I will also resume her home Eliquis. 4. Alzheimer disease with dementia with behavioral disturbance. I will start her on home mirtazapine as needed, starting tonight. I am holding her home duloxetine, ropinirole, and quetiapine for now. 5. Disposition. I will continue to watch the patient in the ICU for another 24 hours. Her condition is critical. More than 30 minutes of critical care time was spent in taking care of this patient. I will start her on heart healthy diet. I will also start her on albuterol/ipratropium nebulization for her wheezing on examination. cc: Jay Browne MD
[2019-04-18] MEDS: ATROVENT NEB INH SCH ×3 (15:30→22:55)
[2019-04-18] MEDS: VANCOMYCIN 1,500 MG in NS 250 ML IV SCH (15:40)
--- NOTE | 2019-04-18 19:28 | PULMONOLOGY PROGRESS NOTE ---
DATE: 04/18/2019 SUBJECTIVE: The patient is awake, alert, and conversant. She is not oriented. She believes she came in bleeding and told the nurse she needs a hysterectomy, but she actually presented with bradycardia. OBJECTIVE: Vital Signs: Maximum temperature in the last 24 hours is 99.9 degrees, blood pressure 143/83, heart rate 108, respiratory rate 17, oxygen saturation 98% on 3 L nasal cannula. HEENT: Pupils are equal and reactive. Oropharynx is clear. Neck: Supple. Chest: Reveals crackles in both lung bases. Cardiac exam: S1, S2. Abdomen: Soft. Extremities: Reveal trace edema. MICROBIOLOGY: Two blood cultures reveal gram-positive cocci. Repeat blood cultures have been ordered. Sputum cultures are negative. LABORATORIES: White blood count 12.09, hemoglobin 10.2, platelet count 229,000. Arterial blood gas on 40% cool aerosol with pH 7.49, pCO2 of 43, pO2 of 136. IMPRESSION: A 63-year-old with: 1. Bradycardia. 2. Altered mental status requiring intubation. 3. Acute hypoxemic respiratory failure. 4. Morbid obesity. 5. Bacteremia with 2 out of 2 blood cultures positive. RECOMMENDATIONS: 1. Continue to wean oxygen as tolerated. 2. Continue bronchial hygiene. 3. Bradycardia management per Cardiology. 4. Await reports of blood cultures. cc: Vernon Robledo MD
[2019-04-18] MEDS: MELATONIN PO SCH (21:03)
[2019-04-19] MEDS: XOPENEX NEB INH SCH ×6 (02:52→22:59)
[2019-04-19] MEDS: ATROVENT NEB INH SCH ×6 (02:52→22:59)
[2019-04-19] MEDS: ATIVAN IV PRN (03:10)
[2019-04-19] MEDS: MORPHINE IV PRN ×2 (03:11→15:16)
[2019-04-19 04:54] LABS: ALLEN TEST YES; BLOOD TYPE ARTERIAL; HCO3-(ACT) 32.7 mmoll (20.0-26.0); PO2(98.6) 85 mmHg (60-100); SAMPLE BLOOD
[2019-04-19 04:55] LABS: PCO2(98.6) 60 mmHg (35-45)
[2019-04-19 04:56] LABS: MODALITY CANNULA
[2019-04-19 06:40] LABS: BASO# 0.04 X1000 (0.0-0.2); BASO% 0.3 % (0.0-0.8); EOS# 0.26 X1000 (0.0-0.7); EOS% 2.1 % (0.0-10.0); HEMATOCRIT 27.3 % (37.0-47.0); HEMOGLOBIN 8.4 g/dL (12.0-16.0); IMM GRAN# 0.04 X1000 (0.0-0.04); IMM GRAN% 0.3 % (0.0-0.5); LYMPH# 1.05 X1000 (1.2-3.4); LYMPH% 8.4 % (20.5-51.1); MCH 31.1 PG (27-31); MCHC 30.8 g/dL (33-37); MCV 101.1 FL (81-99); MONO# 0.87 X1000 (0.11-0.59); MONO% 6.9 % (1.7-9.3); MPV 10.3 FL (7.4-10.4); PLT 196 X1000 (130-400); RDW 14.3 % (11.5-14.5); WBC 12.56 X1000 (4.8-10.8)
[2019-04-19 06:57] LABS: AGAP 10; ALB/GLOB RATIO 0.9; ALBUMIN 2.9 g/dL (3.5-5.0); ALKALINE PHOSPHATASE 98 U/L (32-104); BUN 6 mg/dL (8-22); CALCIUM 8.3 mg/dL (8.8-10.2); CHLORIDE 100 mmol/L (98-107); COSMO 279; CREATININE 0.6 mg/dL (0.5-0.9); ESTIMATED GFR > 60; GLUCOSE 108 mg/dL (70-104); GOT 140 U/L (10-30); GPT 63 U/L (10-36); POTASSIUM 4.5 mmol/L (3.5-5.1); SODIUM 141 mmol/L (136-145); TCO2 31 mmol/L (25-35); TOTAL BILIRUBIN 0.73 mg/dL (0.20-1.00)
--- NOTE | 2019-04-19 07:53 | Diag Imaging Result Doc PS360 ---
CHEST-PORTABLE - 04/19/2019 INDICATION: resp failure/vent COMPARISON: 04/18/2019 FINDINGS: Stable right central line. Stable severely low lung volumes. Stable patchy bibasilar atelectasis. No suspicious infiltrates. Heart size and pulmonary vascularity is normal. IMPRESSION: No change from prior. Electronically signed by Fred Jaimes 04/19/2019 7:51 AM
[2019-04-19] MEDS: LOPRESSOR PO SCH ×2 (08:36→20:21)
[2019-04-19] MEDS: ELIQUIS PO SCH (09:51)
--- NOTE | 2019-04-19 09:53 | PROGRESS NOTE ---
DATE: 04/19/2019 INTERVAL HISTORY: Both of the blood cultures are growing gram-positive cocci. It is speciated at Staphylococcus epidermidis. The repeat blood culture is also turning positive. Her heart rate was reasonably controlled. The patient has a right-sided central line and right shoulder surgical prosthesis. She does not appear in any acute distress. Denies any new complaints. OBJECTIVE: Vital Signs: Temperature 98.6 degrees, pulse 78, respiratory rate 11, blood pressure 94/50. She is saturating 96% on 2 L nasal cannula. General: Morbidly obese, not in any acute distress. HEENT: Oral cavity is moist. Lungs: Air entry bilaterally equal. Her end-expiratory wheeze has improved. No rhonchi or crackles. Cardiovascular: S1, S2 irregularly irregular. No murmur, rub, or gallop. Abdomen: Obese, soft, nontender. Extremities: Bilateral lower extremity edema. She has a right knee deformity. She is able to lift bilateral upper extremities above ground level. Bilateral lower extremities she is able to flex at the knee joint. LABORATORY DATA: Suggestive of leukocytosis, anemia with drop in hemoglobin. She has normal platelet count. ABG suggestive of hypercarbia. She does have resolution of hypokalemia, otherwise normal electrolytes. Mild transaminitis persists, however, it is improving. Microbiology: Repeat blood cultures will be sent tomorrow. IMAGING: Chest x-ray today morning suggests there is no change from the prior. ASSESSMENT AND PLAN: 1. Cardiogenic shock in the setting of suspected heart block with hemodynamically significant bradycardia due to use of beta rebecca, flecainide, for history of atrial fibrillation, as well as ropinirole and duloxetine for mood disorder, now resolved. She is off transcutaneous pacing since 04/17/2019. 2. Acute respiratory failure requiring intubation on 04/16/2019 for airway protection with bilateral lower lobe infiltrate, however, sputum culture has not shown any growth. She has been extubated since 04/17/2019. Continue albuterol ipratropium nebulization for wheezing. 3. Septic shock from Staphylococcus epidermidis bacteremia. The source is unclear, however, she did receive emergent central line in the emergency room which could potentially be the source of introduction. She does not have urinary tract infection. Sputum culture is negative. She does not have any open bruises. Continue intravenous vancomycin. Repeat blood cultures tomorrow. I have discussed with the nurse about securing a peripheral IV at which point I will consider removing the central line. I will also discuss with cardiology about CRISPIN in future. 4. Atrial fibrillation with rapid ventricular rate. Continue metoprolol and titrate the dose according to her response. I am holding her home Eliquis considering anemia for which I will follow up with CBC. 5. Alzheimer's disease with dementia with behavioral disturbance. Continue to hold home duloxetine, mirtazapine, ropinirole, and quetiapine for now. Continue nighttime melatonin and as needed lorazepam. 6. Disposition. The patient continues to remain inside ICU. Plan of care discussed with the patient's family member, her , yesterday and had answered all of the questions. My plan is to transfer patient out to routine medical floor in the next 24 hours or so. cc: Jay Browne MD MTDD
--- NOTE | 2019-04-19 14:44 | PULMONOLOGY PROGRESS NOTE ---
DATE: 04/19/2019 SUBJECTIVE: The patient is awake, alert, and conversant. She is disoriented. She is without complaints. OBJECTIVE: Vital Signs: Maximum temperature in the last 24 hours was 99.9 degrees. BP 155/80, heart rate 77, respiratory rate 16, oxygen saturation 100% on nasal cannula. HEENT: Pupils are equal and reactive. Oropharynx is clear. Neck is supple. Chest reveals shallow breath sounds bilaterally with crackles in both lung bases. Cardiac Examination: S1-S2. Abdomen is obese and soft. Extremities are without edema Laboratories: Chest x-ray reveals shallow inspiration with bibasilar atelectasis. White blood count 12.56, hemoglobin 8.4, platelet count 196,000. Sodium 141, potassium 4.5, chloride 100, bicarbonate 31, BUN 6, creatinine 0.6. Arterial blood gas reveals pH 7.40, pCO2 of 60, pO2 of 85. IMPRESSION: A 63-year-old with: 1. Acute hypoxemic respiratory failure. 2. Bacteremia with positive blood cultures. 3. Altered mental status with improvement. 4. Obesity. 5. Dementia. PLAN: 1. Continue bronchial hygiene. 2. Continue oxygen for hypoxemic respiratory failure. 3. Recommend infectious disease consultation for ongoing bacteremia. cc: Vernon Robledo MD
[2019-04-19] MEDS: VANCOMYCIN 1,500 MG in NS 250 ML IV SCH (17:00)
[2019-04-19] MEDS: MELATONIN PO SCH (20:21)
[2019-04-20] MEDS: MORPHINE IV PRN ×3 (00:42→15:54)
[2019-04-20] MEDS: ATIVAN IV PRN ×2 (00:42→08:09)
[2019-04-20] MEDS: XOPENEX NEB INH SCH ×6 (03:15→23:09)
[2019-04-20] MEDS: ATROVENT NEB INH SCH ×6 (03:15→23:09)
[2019-04-20 04:46] LABS: ALLEN TEST YES; BE 9.6 mmoll (-3.0-3.0); BLOOD TYPE ARTERIAL; HCO3-(ACT) 32.4 mmoll (20.0-26.0); O2(CT) 11.2 mL/dL (15.0-23.0); O2HB 95.7 % (95.0-99.0); PO2(98.6) 101 mmHg (60-100); SAMPLE BLOOD; SAO2 98.7 % (95.0-100.0); THB 8.2 g/dL (11.5-17.4); pH(98.6) 7.41 (7.35-7.45)
[2019-04-20 04:48] LABS: MODALITY CANNULA; PCO2(98.6) 56 mmHg (35-45)
[2019-04-20 05:37] LABS: BASO# 0.04 X1000 (0.0-0.2); BASO% 0.3 % (0.0-0.8); EOS# 0.57 X1000 (0.0-0.7); EOS% 4.9 % (0.0-10.0); HEMATOCRIT 28.5 % (37.0-47.0); HEMOGLOBIN 8.7 g/dL (12.0-16.0); IMM GRAN# 0.04 X1000 (0.0-0.04); IMM GRAN% 0.3 % (0.0-0.5); LYMPH# 1.93 X1000 (1.2-3.4); LYMPH% 16.8 % (20.5-51.1); MCH 31.5 PG (27-31); MCHC 30.5 g/dL (33-37); MCV 103.3 FL (81-99); MONO# 0.91 X1000 (0.11-0.59); MONO% 7.9 % (1.7-9.3); NEUT# 8.03 X1000 (1.4-6.5); NEUT% 69.8 % (42.2-75.2); PLT 190 X1000 (130-400); RBC 2.76 XMIL (4.2-5.4); RDW 14.2 % (11.5-14.5); WBC 11.52 X1000 (4.8-10.8)
[2019-04-20 05:46] LABS: INR 1.11; PROTIME 15.2 Seconds (11.0-16.0)
[2019-04-20 06:29] LABS: AGAP 11; ALKALINE PHOSPHATASE 95 U/L (32-104); BUN 5 mg/dL (8-22); CALCIUM 8.5 mg/dL (8.8-10.2); CHLORIDE 102 mmol/L (98-107); COSMO 278; CREATININE 0.6 mg/dL (0.5-0.9); ESTIMATED GFR > 60; GLUCOSE 96 mg/dL (70-104); GOT 111 U/L (10-30); GPT 53 U/L (10-36); POTASSIUM 4.3 mmol/L (3.5-5.1); SODIUM 141 mmol/L (136-145); TCO2 28 mmol/L (25-35); TOTAL BILIRUBIN 0.83 mg/dL (0.20-1.00)
--- NOTE | 2019-04-20 06:31 | Diag Imaging Result Doc PS360 ---
CHEST-PORTABLE - 04/20/2019 INDICATION: resp failure/vent COMPARISON: 04/19/2019 FINDINGS: Stable right PICC line in good position. Stable severely low lung volumes with bilateral perihilar atelectasis. No pneumothorax or pleural effusion. Heart size are means normal. IMPRESSION: No change from prior. Electronically signed by Fred Jaimes 04/20/2019 6:28 AM
--- NOTE | 2019-04-20 06:58 | EKG Report ---
Test Performed on : 04/18/2019 07:39:19 AM Test Reason : a-fib Blood Pressure : / mmHG Vent. Rate : 115 BPM Atrial Rate : 102 BPM P-R Int : 000 ms QRS Dur : 114 ms QT Int : 374 ms P-R-T Axes : 000 002 143 degrees QTc Int : 517 ms Atrial fibrillation. with rapid ventricular response. with premature ventricular or aberrantly conduc essence complexes. Cannot rule out Anterior infarct (cited on or before 17-APR-2019) Abnormal ECG When compared with ECG of 17-APR-2019 08:07, (Unconfirmed) Atrial fibrillation. has replaced Sinus rhythm. Vent. rate has increased BY [address] now depressed in Lateral leads T wave inversion no longer evident in Inferior leads Nonspecific T wave abnormality, improved in Anterolateral leads Confirmed by Christie CALVILLO, Abdirahman Tovar ([id number]) on 04/22/2019 9:38:07 AM
[2019-04-20] MEDS: LOPRESSOR PO SCH ×2 (08:09→20:10)
[2019-04-20] MEDS ORDERED: LOPRESSOR PO ONE (09:49)
[2019-04-20] MEDS: XANAX PO SCH ×5 (10:47→20:10)
--- NOTE | 2019-04-20 11:37 | PROGRESS NOTE ---
DATE: 04/20/2019 INTERVAL HISTORY: The patient had pulled out some of her IV lines and she went into atrial fibrillation with rapid ventricular rate. She was also febrile with temperature of 100.2 degrees, SUBJECTIVE: She appears pleasant. She denies new complaints. She does appear to have some mild cognitive impairment where she states that the doctor had pulled out her IV line, but does not appear in any acute distress. VITALS: Temperature of 99.7 degrees, pulse 122, respiratory rate 20, blood pressure 140/114. She is saturating 100% on 5 L of nasal cannula. PHYSICAL EXAMINATION: Morbidly obese. Not in any acute distress. Oral cavity is moist. No pallor, cyanosis, clubbing, or icterus. Lungs: Air entry is bilaterally equal. She does not have any more wheezes, rhonchi, or crackles. Cardiovascular: S1, S2 normal. Irregularly irregular rhythm. No murmur, rub, or gallop. Abdomen: Obese, soft, nontender. Bilateral lower extremity edema and right knee deformity. She is able to lift bilateral upper extremities above ground level. She is able to flex bilateral knees but not lift against ground level. Input and output suggest -400 mL yesterday. LABS: Suggestive of mild leukocytosis, macrocytic anemia. She does have a normal platelet count. Her ABG is suggestive of normal pH. She does have hypercarbia without any acidosis. Normal electrolytes and normal kidney function. Her transaminitis is improving. MICROBIOLOGY: One of the two blood cultures on April 18 is still gram-positive cocci. A repeat set of blood cultures are drawn today and catheter from the central line tip has also been sent to the lab. ASSESSMENT AND PLAN: 1. Cardiogenic shock in the setting of suspected heart block with hemodynamically significant bradycardia leading to hypotension, likely because of use of beta rebecca, flecainide for atrial fibrillation, as well as duloxetine, ropinirole, quetiapine for her cognitive impairment with behavioral disturbance. She is off transcutaneous pacing since 04/17/2019. 2. Acute respiratory failure requiring intubation on 04/16/2019 for airway protection with especially left lower lobe infiltrate. However, sputum culture has not shown any growth to date. She is status post extubation on April 17. Continue albuterol- ipratropium nebulization. 3. Septic shock from Staphylococcus epidermidis bacteremia, possible source being emergently introduced central line in the emergency room. Continue intravenous vancomycin and follow up repeat blood culture today. Also follow up catheter-tip culture. If she has persistent bacteremia, then I will consult infectious disease as well as cardiology for need for transesophageal echocardiogram. 4. Atrial fibrillation with rapid ventricular rate and bradycardia on presentation. Continue metoprolol and increase the dose. Continue her home aspirin. On most recent medication reconciliation, she is listed to be taking warfarin instead of Eliquis. However, last month on medication discharge summary, she was taking Eliquis. In any case, I am holding Eliquis considering her drop in hemoglobin and I will follow up hemoglobin closely. 5. History of Alzheimer's dementia with behavioral disturbance. Continue home trazodone and alprazolam. I am holding duloxetine, mirtazapine, and ropinirole for now. I will continue nighttime melatonin. 6. Disposition. I will continue to monitor patient in the intensive care unit at the moment considering persistent bacteremia, for another 24 hours, and her current atrial fibrillation. If she is stable, then my plan is to transfer her to [facility] tomorrow. More than 30 minutes of critical care time were spent in taking of the patient. All of her questions have been answered. Previously, I had discussed plan of care with the patient's and had answered all of his questions. ADDENDUM: I called her and updated him about patient's clinical condition and answered all of his questions. cc: MD CATHI Kraus
[2019-04-20] MEDS: ASPIRIN EC PO SCH (14:55)
--- NOTE | 2019-04-20 15:23 | CARDIOLOGY PROGRESS NOTE ---
DATE: 04/20/2019 SUBJECTIVE: Ms. Hays has no complaints. Presently she is not hurting. PHYSICAL EXAMINATION: She has been afebrile. Heart rates have been in the low 100s to 110s, blood pressure 157/63.General: She is in no acute distress. Cardiovascular: She is in a irregularly irregular, mildly tachycardic rhythm. She has no murmurs. No S3. She has no lower extremity edema. Chest: Exam sounds clear bilaterally. She has no increased work of breathing. Abdomen: Soft, nontender. PERTINENT DATA: White count is 11.5, hematocrit 28, platelet count is 190,000. Her sodium is 141, potassium 4.3, BUN 5, creatinine 0.6, her albumin is 3.0. ASSESSMENT: Ms. Hays is a 63-year-old female who presented with bradycardic episode. Unfortunately, we do not have documentation of the original rhythm per the ambulance. Repeat of her echocardiogram has suggested a normal ejection fraction. PLAN: Since admission, she has been bacteremic with 2 cultures of gram-positive cocci. She has converted back into atrial fibrillation. At this point I would try to achieve relative rate control in this patient. She is on metoprolol orally and I added in a low dose of IV Lopressor for heart rates greater than 120. We will try to use limited rate control. We may consider referral over to [facility] as an outpatient for consideration of a permanent pacemaker. cc: Donny Saunders MD
[2019-04-20] MEDS: HALDOL IV PRN (15:55)
[2019-04-20] MEDS: VANCOMYCIN 1,500 MG in NS 250 ML IV SCH (16:15)
[2019-04-20 16:16] LABS: URINE SOURCE CATH
[2019-04-20 16:21] LABS: BILIRUBIN URINE NEGATIVE (NEGATIVE); BLOOD URINE SMALL (NEGATIVE); COLOR YELLOW; GLUCOSE URINE NEGATIVE (NEGATIVE); KETONE URINE NEGATIVE (NEGATIVE); LEUKOCYTES URINE MODERATE (NEGATIVE); NITRITE URINE NEGATIVE (NEGATIVE); PROTEIN URINE 50 mg/dL (NEGATIVE); SP GRAVITY URINE 1.009; TURBIDITY URINE HAZY (CLEAR); UROBILINOGEN URINE 2 mg/dL (NORMAL)
[2019-04-20 16:24] LABS: UR EPITHELIAL CELLS >10 /HPF (<10); URINE BACTERIA NEGATIVE /HPF; URINE RBC <10 /HPF (<10)
[2019-04-20 16:36] LABS: URINE CASTS NONE SEEN; URINE CRYSTALS NONE SEEN; URINE YEAST NONE SEEN
--- NOTE | 2019-04-20 19:41 | PULMONOLOGY PROGRESS NOTE ---
DATE: 04/20/2019 SUBJECTIVE: The patient is awake, alert and conversant. She continues to think she came into the hospital because she was bleeding to (states the patient was admitted with altered mental status and bradycardia). She was reoriented. She is without specific complaints today. OBJECTIVE: Vital Signs: Maximum temperature in the last 24 hours 100.2 degrees, blood pressure 113/67, heart rate 116, respiratory rate 11, oxygen saturation 99% on 3 L per nasal cannula. HEENT: Pupils are equal and reactive. Oropharynx is clear. Neck: Supple. Chest: Reveals good air entry bilaterally without wheezing or rhonchi. Cardiac: S1, S2. Abdomen: Soft and obese. Extremities: Reveal trace edema. LABORATORIES: Chest x-ray reveals shallow inspiration with mild perihilar atelectasis. IMPRESSION: 1. A 63-year-old with acute hypoxemic respiratory failure. 2. Recurrent staphylococcus bacteremia. 3. Dementia. 4. Obesity. RECOMMENDATION: 1. Continue bronchial hygiene. 2. Continue oxygen for hypoxemic respiratory failure. cc: Vernon Robledo MD
[2019-04-20] MEDS: MELATONIN PO SCH (20:10)
[2019-04-20] MEDS: DESYREL PO PRN (20:11)
[2019-04-21] MEDS: ATROVENT NEB INH SCH ×6 (03:57→22:55)
[2019-04-21] MEDS: XOPENEX NEB INH SCH ×6 (03:57→22:55)
--- NOTE | 2019-04-21 06:35 | Diag Imaging Result Doc PS360 ---
EXAM: CHEST-PORTABLE HISTORY: resp failure/vent TECHNIQUE: Chest single view COMPARISON: 04/20/2019 FINDINGS: Poor inspiratory effort. No cardiomegaly. Mild vascular distention. No pleural effusions identified. No consolidation. The right subclavian line has been removed. IMPRESSION: Mild vascular distention Electronically signed by Terry Bellamy 04/21/2019 6:32 AM
[2019-04-21 06:43] LABS: URINE SOURCE CATH
[2019-04-21 06:50] LABS: BILIRUBIN URINE NEGATIVE (NEGATIVE); BLOOD URINE SMALL (NEGATIVE); COLOR YELLOW; GLUCOSE URINE NEGATIVE (NEGATIVE); KETONE URINE 10 mg/dL (NEGATIVE); LEUKOCYTES URINE SMALL (NEGATIVE); NITRITE URINE NEGATIVE (NEGATIVE); PH URINE 6.5; PROTEIN URINE TRACE mg/dL (NEGATIVE); TURBIDITY URINE CLEAR (CLEAR); UROBILINOGEN URINE NORMAL (NORMAL)
[2019-04-21 06:52] LABS: UR EPITHELIAL CELLS <10 /HPF (<10); URINE BACTERIA NEGATIVE /HPF; URINE WBC <10 /HPF (<10)
[2019-04-21] MEDS: MAG-OX PO SCH (08:23)
[2019-04-21] MEDS: LOPRESSOR PO SCH ×3 (08:24→21:10)
[2019-04-21] MEDS: XANAX PO PRN ×3 (08:24→20:41)
[2019-04-21] MEDS: ASPIRIN EC PO SCH (08:24)
--- NOTE | 2019-04-21 08:43 | PROGRESS NOTE ---
DATE: 04/21/2019 INTERVAL HISTORY: No acute events overnight. The patient had started becoming tachycardic with atrial fibrillation with rapid ventricular rate. Yesterday, some of her home medications were resumed including Xanax. She has had intermittent episodes of agitation where she had pulled out her Giraldo catheter as well as IV line on multiple times; they had to be reintroduced. SUBJECTIVE: Patient is sleepy, but arousable. Denies any complaints. Temperature of 98.1 degrees, She has been afebrile for 24 hours now. Pulse is 100, respiratory rate 12, blood pressure 122/80, and saturating 98% on 3 L nasal cannula. PHYSICAL EXAMINATION: Morbidly obese not in any acute distress. Oral cavity is moist. No pallor, cyanosis, clubbing, or icterus.Lungs: Air entry is bilaterally equal. She has poor inspiratory and thick chest wall. Does not allow proper examination, but I could not appreciate any wheezes, rhonchi or crackles. Heart: S1-S2 is normal. Irregularly irregular. No murmur, rub, or gallop. Abdomen: Obese, soft, and nontender. Extremities: Bilateral lower extremity edema. She also has what appears to be right knee deformity. She is able to lift bilateral upper extremity above ground level. Her right-sided neck central line, likely in subclavian vein has been removed. Input and output suggests she is -5 L so far. However, it was not charted appropriately it seems. LABORATORY: Suggestive of no CBC or BMP today. MICROBIOLOGY: Blood culture drawn on 04/20/2019 has not shown any growth to date. ASSESSMENT AND PLAN: 1. Shock in the setting of suspected heart block with hemodynamically significant bradycardia leading to hypotension, likely because of use of beta rebecca, flecainide for atrial fibrillation as well as duloxetine, ropinirole, quetiapine for her cognitive impairment with behavior disturbance. However, corresponding EKG/telemetry data are lacking. She is off transcutaneous pacing since 04/17/2019. Shock has resolved. 2. Acute respiratory failure requiring intubation on 04/16/2019 for a reduction, and suspected left lower lobe infiltrate. She is status post extubation 04/17. Continue albuterol ipratropium nebulization. 3. Septic shock from Staphylococcus epidermidis bacteremia, possibly source being emergently to do central line on the right subclavian in the emergency room. It has been removed on 04/20/2019. Continue intravenous vancomycin, and follow up repeat blood culture drawn on 04/20. Catheter-tip has no growth to date. She might need up to 4 to 6 weeks of antibiotics. Echocardiogram initially did not detect any vegetation. If she is persistently bacteremic, then transesophageal echocardiogram could be considered. 4. Atrial fibrillation with rapid ventricular rate and bradycardia on presentation though. Continue metoprolol p.o. and IV as needed. Hemoglobin appears to be stable, and I will resume her Eliquis. 5. History of Alzheimer's dementia with behavior disturbance. Continue home trazodone. I will make her alprazolam as needed. I will give her haloperidol as needed for agitation with nighttime melatonin. 6. Disposition: The patient appears hemodynamically stable, and I will transfer patient out of this unit to [facility]. Plan of care discussed with nursing team. All of their questions have been answered. Yesterday, I called patient's and had informed him about patient's course and had answered all of his questions. cc: Jay Browne MD MTDD
--- NOTE | 2019-04-21 11:39 | CARDIOLOGY PROGRESS NOTE ---
DATE: 04/21/2019 SUBJECTIVE: Ms. Hays is a little bit sleepy today, but she does wake to physical and verbal stimuli. PHYSICAL EXAMINATION: Vital Signs: She is afebrile. Her heart rate today is 104, blood pressure 123/82. General: She is in no acute distress. Cardiovascular: She is in an irregularly irregular, mildly tachycardic rate with heart rates in the low 100s predominantly. No lower extremity edema. Chest: Clear bilaterally. She has no increased work of breathing. Abdomen: Soft, nontender. PERTINENT DATA: She has no chemistry dated from today. UA was reviewed. ASSESSMENT: Ms. Hays is a 63-year-old white female with a history of paroxysmal atrial fibrillation, who presented with some sort of bradycardic event. Subsequently, she is found to have two blood cultures positive for Staph epidermitis. Those were on two separate days. PLAN: She is currently on antibiotics. She has reasonable rate control, but I have increased the metoprolol to 50 every 8 hours. She has p.r.n. Lopressor ordered. I am unclear exactly what the bradycardic event that she had at presentation as we have no ekg data from the EMT's in the field. In addition, the initial hospital EKG that we have demonstrates predominantly ventricular paced beats and is very difficult to interpret. The next EKG that we have available shows a sinus bradycardia in the 50s. My first evaluation of the patient demonstrated her to be in sinus rhythm in the 50s, and she has been in normal sinus rhythm essentially up until the point that she converted to atrial fibrillation. Tentatively, I would consider rate control initially with an outpatient heart monitor to evaluate for significant arrhythmias, either being uncontrolled atrial fibrillation or significant bradyarrhythmias. I would not proceed with pacemaker implantation or EP referral at this point given the infectious issues as well as the unclear heart rhythm data that we have. She is on apixaban. I have no further recommendations other than continuing with rate control titration as detailed above. cc: Donny Saunders MD MTDD
[2019-04-21] MEDS: MORPHINE IV PRN ×2 (12:54→22:57)
[2019-04-21] MEDS: VANCOMYCIN 1,500 MG in NS 250 ML IV SCH (15:50)
--- NOTE | 2019-04-21 20:30 | PULMONOLOGY PROGRESS NOTE ---
DATE: 04/21/2019 SUBJECTIVE: The patient is arousable. She is without specific complaints. She did have an episode of atrial fibrillation with rapid ventricular response. OBJECTIVE: Vital signs: The patient has been afebrile for the last 24 hours, BP 126/94, heart rate 103, respiratory rate 15, oxygen saturation 94% on 2 L per nasal cannula. HEENT: Pupils are equal and reactive. Oropharynx is clear. Neck: Supple. Chest: Reveals minimal crackles in the bases without wheezing or rhonchi. Cardiac exam: Regular rhythm. Normal S1, normal S2. Abdomen: Obese and soft. Extremities: Reveal trace edema. LABORATORIES: Chest x-ray reveals shallow inspiration without acute changes. IMPRESSION: A 63-year-old with: 1. Acute hypoxemic respiratory failure with continued improvement. 2. Staphylococcus epidermidis bacteremia. 3. Obesity. 4. Dementia. RECOMMENDATIONS: 1. Continue bronchial hygiene. 2. Wean oxygen as tolerated. cc: Vernon Robledo MD
[2019-04-21] MEDS: DESYREL PO PRN (20:41)
[2019-04-21] MEDS: MELATONIN PO SCH (20:41)
[2019-04-21] MEDS: ELIQUIS PO SCH (20:41)
[2019-04-22] MEDS: XOPENEX NEB INH SCH ×6 (02:47→23:15)
[2019-04-22] MEDS: ATROVENT NEB INH SCH ×6 (02:47→23:15)
[2019-04-22 04:00] LABS: INR 1.2; PROTIME 16.2 Seconds (11.0-16.0)
[2019-04-22 04:10] LABS: BASO# 0.07 X1000 (0.0-0.2); BASO% 0.8 % (0.0-0.8); EOS# 0.43 X1000 (0.0-0.7); EOS% 4.7 % (0.0-10.0); HEMATOCRIT 23.9 % (37.0-47.0); HEMOGLOBIN 7.3 g/dL (12.0-16.0); IMM GRAN# 0.06 X1000 (0.0-0.04); IMM GRAN% 0.7 % (0.0-0.5); LYMPH# 1.85 X1000 (1.2-3.4); LYMPH% 20.1 % (20.5-51.1); MCH 31.6 PG (27-31); MCHC 30.5 g/dL (33-37); MCV 103.5 FL (81-99); MONO# 0.97 X1000 (0.11-0.59); MONO% 10.5 % (1.7-9.3); MPV 9.2 FL (7.4-10.4); NEUT# 5.82 X1000 (1.4-6.5); NEUT% 63.2 % (42.2-75.2); PLT 243 X1000 (130-400); RBC 2.31 XMIL (4.2-5.4); RDW 14.8 % (11.5-14.5)
[2019-04-22 04:16] LABS: ALB/GLOB RATIO 1.1; ALBUMIN 3.1 g/dL (3.5-5.0); CALCIUM 8.2 mg/dL (8.8-10.2); CREATININE 1.1 mg/dL (0.5-0.9); POTASSIUM 3.8 mmol/L (3.5-5.1); TOTAL BILIRUBIN 0.91 mg/dL (0.20-1.00); TOTAL PROTEIN 5.8 g/dL (6.3-8.3)
[2019-04-22] MEDS: LOPRESSOR PO SCH ×3 (05:08→22:14)
[2019-04-22] MEDS: HALDOL IV PRN ×2 (06:44→12:13)
[2019-04-22] MEDS ORDERED: SEROQUEL PO ONE (07:39)
--- NOTE | 2019-04-22 08:02 | Diag Imaging Result Doc PS360 ---
EXAM: CHEST-PORTABLE 04/22/2019 HISTORY: resp failure/vent TECHNIQUE: AP portable at 0503 COMMENT: Compared to the previous study of 04/21/2019 there is dense alveolar opacity in the left base which was not previously present. IMPRESSION: Pneumonia left lower lobe. Electronically signed by Raymon Bradford 04/22/2019 8:00 AM
[2019-04-22] MEDS: MAG-OX PO SCH (08:31)
[2019-04-22] MEDS: XANAX PO PRN (08:31)
[2019-04-22] MEDS: ASPIRIN EC PO SCH (08:31)
[2019-04-22] MEDS: MORPHINE IV PRN (08:32)
[2019-04-22] MEDS ORDERED: ABILIFY PO SCH (09:00)
[2019-04-22] MEDS ORDERED: NS 250 ML ONE (10:54)
[2019-04-22] MEDS: PROTONIX PO SCH ×2 (12:13→22:15)
--- NOTE | 2019-04-22 12:20 | INFECTIOUS DISEASE CONSULT REP ---
DATE: 04/22/2019 CONCLUSION: The patient has a Staphylococcus epidermidis bacteremia. I agree with Dr. Browen that most likely this originated from an IV. She does have a left lower lobe infiltrate. It is possible that the left lower lobe infiltrate is caused by hematogenous seeding from the patient's Staphylococcus epidermidis bacteremia. Another possibility would be that the patient's left lower lobe infiltrate occurred due to aspiration and it may be caused by another bacterium other than Staphylococcus epidermidis. I think it would be unlikely that the patient had a primary Staphylococcus epidermidis pneumonia with a secondary bacteremia. RECOMMENDATIONS: I agree with treating the patient with vancomycin. The first time that the patient had negative blood cultures would be on April 20, and thus the days that the patient has been on vancomycin would be 2 with day 1 being the first day that the patient's blood cultures are negative. If the patient starts having fever and the white count increases and the infiltrate does not clear, then I would suggest adding gram-negative coverage with an antibiotic such as cefepime and assume that the left lower lobe pneumonia is due to a different organism than the Staphylococcus epidermidis and that the pneumonia probably occurred be due to the patient aspirating. The patient is unable to supply a history. Her laboratory studies now show a CBC with a white count of 9200, hemoglobin 7.3, and platelet count 243,000. Creatinine is 1.1. GFR is 50. AST is 53. Urinalysis showed white cells, but no bacteria. Chest x-ray shows a left lower lobe pneumonia. The patient's urine culture was negative. As mentioned above, the first day that the patient's repeat blood cultures were positive was on April 20. I agree with treating with vancomycin and I would treat for a total of 14 days with vancomycin with the first day of vancomycin being the first time that the patient's repeat blood cultures were sterile. PAST MEDICAL HISTORY: The patient's medical diseases include atrial fibrillation, Alzheimer's dementia, and obesity. The patient is unable provide a history and no family member is present. PHYSICAL EXAMINATION: Vital Signs: Temperature is 98.7 degrees, pulse 84, respirations 20, blood pressure 157/79. The patient is 5 feet 9 inches tall and weighs 223 pounds. General: This is an obese, elderly female. She is in no acute distress. Head, Eyes, Ears, Nose and Throat: She can hear my spoken words and see near objects. She does not have any white coating on her tongue. Sinuses are not tender. Neck: Negative for meningismus. Lungs: Clear to auscultation. Cardiovascular: Heart rate is regular. I did not hear a murmur. Abdomen: Soft and not tender. Neurologic: The patient is alert. She can move her extremities. There is no tremor. Integument: No rash noted. I did not find any IV site that looked inflamed. Thank you for the consult. cc: Yeyo Fuller MD
--- NOTE | 2019-04-22 12:47 | PROGRESS NOTE ---
DATE: 04/22/2019 OVERNIGHT EVENTS: Yesterday, her metoprolol dose was increased and heart rate was reasonably controlled. The patient has started becoming more agitated and has been on restraints. She has been cursing the nursing staff as well. She has pulled out several of her IV lines. In the morning time I explained to her about her clinical condition and that she needs to comply with medical care, and answered all of her questions. Her saturations were 85 to 99. Her leukocytosis has resolved. She does have a drop in her hemoglobin and increase in creatinine. VITAL SIGNS: Currently, temperature 97.4 degrees, pulse 77, respiratory rate 16, blood pressure 155/77, saturating 98% on 2 L nasal cannula. SUBJECTIVE: The patient denies any chest pain or shortness of breath. She is alert, she is oriented to the place, but not with the situation. She states this is her home and she is the boss. PHYSICAL EXAMINATION: Morbidly obese, not in any acute distress. Oral cavity is moist. She had mild conjunctival pallor. No cyanosis, clubbing, or icterus. Inspiratory crackles on left inframammary region. However, thick chest wall limits examination. S1, S2 normal. Appears sinus on bedside monitor. Regular. No murmur, rub, or gallop. Abdomen is obese, soft, nontender. Bilateral lower extremity edema. She appears to have right knee deformity. She is able to raise both upper extremities above ground level. Neurologic, she is alert, she is oriented to herself. LABS: Suggestive of resolution of leukocytosis, macrocytic anemia, normal platelet count. Her coagulation is 1.2. Her electrolytes are normal except slight elevation of creatinine. MICROBIOLOGY: Repeat blood culture on 04/20/2019 has not shown any growth to date. IMAGING: Chest x-ray suggestive of left lower lobe infiltrate and pneumonia. ASSESSMENT AND PLAN: 1. Shock in the setting of questionable hemodynamically significant bradycardia as per EMS leading to hypotension, because of use of beta rebecca, flecainide for atrial fibrillation, as well as her home use of duloxetine, ropinirole, quetiapine for cognitive impairment with behavioral disturbance. However, corresponding EKG or telemetry data were not available at the time of admission. She was on transcutaneous pacing on the admission day overnight, and she has been off it since 04/17/2019. She is no longer on norepinephrine. 2. Acute respiratory failure requiring intubation on presentation in the setting of syncope and bradycardia and hypotension that she presented with. She also has now left lower lobe pneumonia. She is status post extubation on April 17. Continue albuterol/ ipratropium nebulization and oxygen nasal cannula. 3. Septic shock from Staphylococcus epidermidis bacteremia, possibly source being emergently introduced by right-sided subclavian central line in the emergency room. It was removed on 04/20/2019. The latest blood cultures have been negative. Continue intravenous vancomycin. Catheter tip has not shown any growth, though. Infectious Disease has been consulted for long- term antibiotic management, and PICC line has been ordered. Echocardiogram did not have any vegetation. 4. Atrial fibrillation with rapid ventricular rate. Though she presented with bradycardia and hypotension, now she is going into atrial fibrillation for which she was taking metoprolol and flecainide at home. Continue current dose of metoprolol. I am holding her Eliquis since she has had a drop in her hemoglobin. Cardiology on board. 5. History of Alzheimer's dementia, with behavioral disturbance. Continue home alprazolam as needed. Start patient on home quetiapine. Continue melatonin at nighttime, and as needed haloperidol. I will add back her other home medications as tolerated, keeping a close eye over her heart rate. 6. Macrocytic anemia. She has been off Eliquis now, which I am holding. I will follow up with fecal occult blood test, iron panel and vitamin B12 tomorrow. 7. Disposition I will transfer the patient to routine medical floor. Physical Therapy has been ordered. Depending on that the next plan would be to either discharge her to rehab. She was previously in [facility] at some point as well. Plan of care was discussed with the yesterday and I had answered all of his questions. cc: Jay Browne MD MTDD
[2019-04-22] MEDS: VANCOMYCIN 1,500 MG in NS 250 ML IV SCH (16:50)
[2019-04-22] MEDS ORDERED: NS 500 ML ONE (16:52)
--- NOTE | 2019-04-22 18:23 | CARDIOLOGY PROGRESS NOTE ---
DATE: 04/22/2019 SUBJECTIVE: Ms. Hays has no complaints today. OBJECTIVE: She is afebrile. Heart rate is 77, showing that she is in sinus today. Blood pressure 155/77. Generally she is in no acute distress.Cardiovascular: She is in a regular rate and rhythm. She has no murmurs, no S3. She has no lower extremity edema. Her chest exam is clear bilaterally. She has no increased work of breathing. Her abdomen is soft, nontender. LABORATORY DATA: Sodium 139, potassium 3.8, BUN is 13, creatinine is 1.1. ASSESSMENT: Ms. Hays is a 63-year-old female who came in bradycardic. She currently has and what appears to be a Staphylococcus epidermidis bacteremia. PLAN: Please review the note from 04/21. I would not make any changes to her regimen right now. She is in sinus rhythm. She is on Eliquis. I do not have any further recommendations. Contact us if we can be of further assistance. cc: Donny Saunders MD
[2019-04-22] MEDS: MELATONIN PO SCH (22:14)
[2019-04-22] MEDS: SEROQUEL PO SCH (22:14)
--- NOTE | 2019-04-22 22:28 | PULMONOLOGY PROGRESS NOTE ---
DATE: 04/22/2019 SUBJECTIVE: Patient is awake and alert. She is not oriented. She appears to be hallucinating. She reports they are "dummies" for tying her down. OBJECTIVE: Vital Signs: The patient has been afebrile for the last 24 hours. Blood pressure 157/79, heart rate 84, respiratory rate 20, oxygen saturation 100% on nasal cannula. HEENT: Pupils are equal and reactive. Oropharynx is clear. Neck: Supple. Chest: Occasional rhonchi bilaterally. Cardiac: S1, S2. Abdomen: Soft. Extremities: Without edema. LABORATORIES: Chest x-ray reveals new faint infiltrate at the left base. Shallow inspiration bilaterally. White blood count 9.2, hemoglobin 7.3, platelet count 243,000. Sodium 139, potassium 3.8, chloride 99, bicarbonate 28, BUN 13, creatinine 1.1. IMPRESSION: A 63-year-old with: 1. Acute hypoxemic respiratory failure. 2. Staphylococcus epidermidis bacteremia. 3. New infiltrate, left base, with no fevers. White blood count is also decreasing. 4. Dementia. PLAN: 1. Continue bronchial hygiene. 2. Re-evaluate left lower lobe with chest x-ray tomorrow. This may represent an area of atelectasis. 3. Consider expanding antibiotic regimen if the left basilar infiltrate persists, as she is only getting limited coverage with vancomycin at this juncture, and has no gram-negative coverage. cc: Vernon Robledo MD
[2019-04-23] MEDS: XOPENEX NEB INH SCH ×6 (03:10→22:40)
[2019-04-23] MEDS: ATROVENT NEB INH SCH ×6 (03:15→22:40)
[2019-04-23] MEDS: LOPRESSOR PO SCH ×2 (06:11→16:11)
--- NOTE | 2019-04-23 07:13 | Diag Imaging Result Doc PS360 ---
EXAM: CHEST-PORTABLE 04/23/2019 HISTORY: resp failure/vent TECHNIQUE: AP portable at 0524 COMMENT: Compared to 04/22/2019 the basilar opacities seen bilaterally have improved. There is a PICC line on the left with its tip in the superior vena cava. IMPRESSION: Improving pulmonary edema plus minus atelectasis. Electronically signed by Raymon Bradford 04/23/2019 7:11 AM
[2019-04-23 07:25] LABS: CALCIUM 9.2 mg/dL (8.8-10.2); CREATININE 1.4 mg/dL (0.5-0.9); POTASSIUM 3.8 mmol/L (3.5-5.1)
[2019-04-23 07:28] LABS: BASO# 0.05 X1000 (0.0-0.2); BASO% 0.6 % (0.0-0.8); EOS# 0.31 X1000 (0.0-0.7); EOS% 3.7 % (0.0-10.0); HEMATOCRIT 24.3 % (37.0-47.0); HEMOGLOBIN 7.4 g/dL (12.0-16.0); IMM GRAN# 0.03 X1000 (0.0-0.04); IMM GRAN% 0.4 % (0.0-0.5); LYMPH# 1.09 X1000 (1.2-3.4); LYMPH% 13.1 % (20.5-51.1); MCH 31.5 PG (27-31); MCHC 30.5 g/dL (33-37); MCV 103.4 FL (81-99); MONO% 8.4 % (1.7-9.3); MPV 9.5 FL (7.4-10.4); NEUT# 6.17 X1000 (1.4-6.5); NEUT% 73.8 % (42.2-75.2); PLT 286 X1000 (130-400); RBC 2.35 XMIL (4.2-5.4); RDW 15.6 % (11.5-14.5); WBC 8.35 X1000 (4.8-10.8)
[2019-04-23 07:42] LABS: FERRITIN 138 ng/mL (13-150)
[2019-04-23] MEDS: MAG-OX PO SCH (10:02)
[2019-04-23] MEDS: PROTONIX PO SCH ×2 (10:02→20:36)
[2019-04-23] MEDS: ASPIRIN EC PO SCH (10:02)
--- NOTE | 2019-04-23 14:37 | Diag Imaging Result Doc PS360 ---
CT HEAD W/O CONTRAST - 04/23/2019 INDICATION: lethargy, combative COMPARISON: 04/16/2019 FINDINGS: Stable mild periventricular white matter chronic microvascular disease. No intracranial mass or hemorrhage. The skull is intact. The sinuses, mastoids, and middle ears are clear. IMPRESSION: No acute disease or change from prior. This exam was performed using automated exposure control, adjustment of mA or kV according to patient size, and/or use of iterative reconstruction technique Electronically signed by Fred Jaimes 04/23/2019 2:35 PM
[2019-04-23] MEDS: MORPHINE IV PRN (15:51)
[2019-04-23] MEDS: CUBICIN 600 MG in NS 100 ML IV SCH (16:12)
[2019-04-23] MEDS ORDERED: COUMADIN PO SCH (16:15)
--- NOTE | 2019-04-23 17:03 | PROGRESS NOTE ---
DATE: 04/23/2019 SUBJECTIVE: Patient is lying comfortably in bed. Family members at the bedside. It looks like she was really confused, but now she is better, still confused though. She used to be in restraints. No fever, no chills. She is not complaining of pain at this moment. She is able to recognize family members at the bedside. OBJECTIVE: Vital Signs: Temperature 98.6 degrees, pulse 82, respiratory rate 20, blood pressure 176/96, oxygen saturation 98 on room air. HEENT: Head normocephalic, no trauma. PERRLA. Neck: Supple. No JVD. No masses. Central trachea. Chest: Coarse breath sounds bilaterally with some crepitus and crackles at the left base. Cardiovascular: RRR. Abdomen: Soft, obese, protuberant. Nontender. Extremities: Bilateral lower extremity edema. Neurological: This patient is alert. She is oriented to person and place. She is able to recognize family members at the bedside and follows commands. LABORATORY: WBC 8.3, hemoglobin 7.4, hematocrit 24.3, platelets 286. Sodium 143, potassium 3.8, chloride 104, bicarbonate 30, BUN 12, creatinine 1.4, glucose 110, calcium 9.2. ASSESSMENT AND PLAN: 1. Septic shock from Staphylococcus epidermidis bacteremia, probably the source being emergently introduced by a right-sided subclavian central line in the emergency room. This was removed already on 04/20/2019. Continue with the same management. She was on vancomycin, and now she is on daptomycin, probably because of increase of the creatinine. Infectious Disease department on board. Echocardiogram did not show any vegetation. 2. Acute respiratory failure requiring intubation on presentation in the setting of syncope and bradycardia with hypotension, likely related also to left lower lobe pneumonia. She is status post extubation on April 17. Continue breathing treatment. 3. Left lower lobe pneumonia. As above. Continue with antibiotics. 4. Reported significant bradycardia as per Emergency Medical Services, leading to hypotension. We do not have those records here. The Cardiology department following this patient closely. She was on transcutaneous pacing on the admission day overnight. She has been off it since 04/17/2019. She is not on pressors, either. 5. Atrial fibrillation with rapid ventricular response, rate controlled. Continue with the same management. 6. Her hemoglobin dropped from 8.7 to 7.3 and today 7.4, so it has been stable. We had an occult blood in the stool that is positive so I will continue to monitor her hemoglobin, and I will discuss the case in the morning with Gastroenterology department to see what they think, but the Reynais has been on hold already. 7. History of Alzheimer dementia with behavioral disturbance. Aware. I have placed this patient back on her medications, especially the ones that [facility] recommended. The family has been told that she does have dementia at [facility], and as per the daughter, she was doing fine with aripiprazole and mirtazapine. I will put her back on those medications. 8. Macrocytic anemia. Marsha has been on hold due to low hemoglobin. Occult blood in the stool is positive. I will probably ask Gastroenterology department to evaluate this patient in the morning. cc: Horace Perez MD
[2019-04-23] MEDS: SEROQUEL PO SCH (20:35)
[2019-04-23] MEDS: XANAX PO PRN (20:35)
[2019-04-23] MEDS: MELATONIN PO SCH (20:35)
[2019-04-23] MEDS: REMERON PO SCH (20:36)
[2019-04-23] MEDS ORDERED: ELIQUIS PO SCH (21:00)
[2019-04-23] MEDS ORDERED: MELATONIN PO SCH (21:00)
--- NOTE | 2019-04-23 21:35 | INFECTIOUS DISEASE PROGRESS NO ---
DATE: 04/23/2019 PRESENT ILLNESS: Ms. Hays is being treated for Staphylococcus epidermidis bacteremia which is thought to have originated from an IV site. There was also a concern about left lower lobe infiltrate, however, the chest x-ray today shows pulmonary edema plus or minus atelectasis. Unfortunately her kidney function is trending downward. MEDICATION: She has been receiving IV vancomycin per pharmacy dosing which we will stop at this time. PHYSICAL EXAMINATION: Vital Signs: Temperature is 99.2 degrees, pulse rate 76, respiratory rate 20, blood pressure 157/76. O2 saturation is 98% on room air. General: This is an obese, chronically ill-appearing elderly female. She is lying in the bed, currently lethargic and dozing off during conversation. No acute distress. HEENT: Atraumatic, normocephalic. Oral mucous membranes are pink and moist. Conjunctivae are pale. Neck: Supple. Trachea is midline. Cardiovascular: Heart rate and rhythm are regular. Normal sinus rhythm on the monitor. Respiratory: Lung sounds are clear to auscultation bilaterally. Diminished in the bases. Abdomen: Soft, obese and nontender. Bowel sounds are active. Neurologic: She is drowsy and lethargic but arousable and will follow commands. No tremor is noted. Integumentary: Skin is warm and dry with multiple bruises noted to her upper extremities. There is a PICC line in place to the left upper arm. The site is without edema or erythema. There is some bruising to the site with a mild amount of bloody drainage. LABORATORY AND X-RAY: Today her white count is 8.35, hemoglobin 7.4, platelet count 286,000, creatinine is 1.4. GFR 38. Her previous blood cultures have shown Staphylococcus epidermidis. Chest x-ray today shows improving pulmonary edema plus or minus atelectasis. ASSESSMENT AND PLAN: Ms. Hays is being treated for a Staph epi bacteremia. She has been receiving vancomycin up to this point and unfortunately her renal function is trending downward. We will stop the vancomycin and start her on daptomycin 600 mg IV once daily with hopes that her renal function will improve. At this point, we will go ahead and order a procalcitonin level in the morning, to make sure there is no pneumonia, since daptomycin will not cover any possible pneumonia. The patient is currently lethargic and the nurses report that she has been "wild." We will go ahead and order another CT of the head without contrast. COMORBIDITIES: For Ms. Hays include that she is elderly and obese with Alzheimer's dementia. Dictated by TIFFANIE Prasad for Yeyo Fuller MD cc: Yeyo Fuller MD MTDD
--- NOTE | 2019-04-24 00:18 | PULMONOLOGY PROGRESS NOTE ---
DATE: 04/23/2019 SUBJECTIVE: The patient is awake and alert. She appears to be hallucinating. She is without specific complaints. OBJECTIVE: Vital Signs: The patient is afebrile. Blood pressure 157/76, heart rate 76, respiratory rate 20, oxygen saturation 98% on room air. HEENT: Pupils are equal and reactive. Oropharynx appears clear. Neck: Supple. Chest: Reveals crackles in both lung bases. Cardiac exam: S1, S2. Abdomen: Obese and soft. Extremities: Without edema. LABORATORIES: Chest x-ray reveals some decrease in bibasilar infiltrates compared to 9. CT scan of the brain reveals chronic microvascular disease but no evidence of acute change. White blood count 8.35, hemoglobin 7.4, platelet count 386,000. Sodium 143, potassium 3.8, chloride 104, bicarbonate 30, BUN 12, creatinine 1.4. IMPRESSION: A 63-year-old with: 1. Bibasilar infiltrates. 2. Possible atelectasis. 3. Dementia. 4. Hypoxemic respiratory failure, now on room air. RECOMMENDATIONS: 1. Continue bronchial hygiene. 2. Antibiotics as outlined by Infectious Disease. She does not have a progressive infiltrate at the left base, and this may represent atelectasis. 3. Monitor oxygen saturation. cc: Vernon Robledo MD
[2019-04-24] MEDS: LOPRESSOR PO SCH ×4 (00:56→20:59)
[2019-04-24] MEDS: DESYREL PO PRN (02:07)
[2019-04-24] MEDS: ATROVENT NEB INH SCH ×6 (03:20→23:30)
[2019-04-24] MEDS: XOPENEX NEB INH SCH ×6 (03:20→23:30)
[2019-04-24] MEDS: XANAX PO PRN (06:13)
[2019-04-24] MEDS: MORPHINE IV PRN ×2 (07:01→21:01)
[2019-04-24 07:36] LABS: BASO# 0.04 X1000 (0.0-0.2); BASO% 0.5 % (0.0-0.8); EOS# 0.33 X1000 (0.0-0.7); EOS% 4.3 % (0.0-10.0); HEMATOCRIT 25.4 % (37.0-47.0); HEMOGLOBIN 7.8 g/dL (12.0-16.0); IMM GRAN# 0.04 X1000 (0.0-0.04); IMM GRAN% 0.5 % (0.0-0.5); LYMPH# 1.12 X1000 (1.2-3.4); LYMPH% 14.8 % (20.5-51.1); MCH 31.6 PG (27-31); MCHC 30.7 g/dL (33-37); MCV 102.8 FL (81-99); MONO# 0.66 X1000 (0.11-0.59); MONO% 8.7 % (1.7-9.3); MPV 9.5 FL (7.4-10.4); NEUT% 71.2 % (42.2-75.2); PLT 306 X1000 (130-400); RBC 2.47 XMIL (4.2-5.4); RDW 16.6 % (11.5-14.5); WBC 7.59 X1000 (4.8-10.8)
[2019-04-24 07:48] LABS: ALB/GLOB RATIO 0.9; ALBUMIN 2.9 g/dL (3.5-5.0); CALCIUM 8.5 mg/dL (8.8-10.2); CREATININE 1.3 mg/dL (0.5-0.9); POTASSIUM 3.4 mmol/L (3.5-5.1); TOTAL BILIRUBIN 0.98 mg/dL (0.20-1.00)
[2019-04-24 07:54] LABS: INR 0.99; PROTIME 13.8 Seconds (11.0-16.0)
[2019-04-24] MEDS: MAG-OX PO SCH (08:41)
[2019-04-24] MEDS: ASPIRIN EC PO SCH (08:41)
[2019-04-24] MEDS: ZYLOPRIM PO SCH (08:42)
[2019-04-24] MEDS: PROTONIX PO SCH ×2 (08:42→21:00)
[2019-04-24] MEDS ORDERED: PROTONIX PO SCH (09:00)
[2019-04-24] MEDS ORDERED: KLOR-CON PO ONE (09:55)
--- NOTE | 2019-04-24 14:09 | PROGRESS NOTE ---
DATE: 04/24/2019 SUBJECTIVE: The patient is lying comfortably in bed. Her is at the bedside. She looks much better today but it looks like she has been also confused on and off. I do believe she does have some dementia, and it looks like they have been told that she has been having dementia before. OBJECTIVE: Vital Signs: Temperature 98.8 degrees, pulse 124, respiratory rate 16, blood pressure 155/59, oxygen saturation 95% on room air. HEENT: Head normocephalic. No trauma. PERRLA. Neck: Supple. No JVD. No masses. Central trachea. Chest: Coarse breath sounds bilaterally with some crepitus and crackles at the left base. Cardiovascular: Regular rhythm and rate, tachycardic. Abdomen: Soft, obese, protuberant. Nontender, nondistended. No hepatosplenomegaly. Extremities: Bilateral lower extremity edema. Neurological: The patient is alert. She is oriented to person and place. She is able to recognize family members at the bedside and she is following commands. LABORATORY DATA: WBC 7.5, hemoglobin 7.8, hematocrit 25.4, platelets 306,000. Sodium 142, potassium 3.4, chloride 102, bicarbonate 28, BUN 12, creatinine 1.3, glucose 107, calcium 8.5, magnesium 1.9, albumin 2.9. ASSESSMENT AND PLAN: 1. Septic shock from Staphylococcus epidermidis bacteremia, probably the source be being emergently introduced by a right-sided subclavian central line in the emergency room, but this was removed already on 04/20/2019. We will continue with the same management. She was on vancomycin but now she is on daptomycin. Probably the increase of the creatinine is related to vancomycin. She has been tolerating p.o. She looks hydrated. Infectious Disease Department on board. Echocardiogram did not show any vegetation. 2. Acute respiratory failure requiring intubation on presentation in the setting of syncope and bradycardia with hypotension, likely related also to left lower lobe pneumonia. She is status post extubation on 04/17/2019. Continue breathing treatment. Pulmonary Department on board. 3. Left lower lobe pneumonia, as above, continue with antibiotics. 4. Reported significant bradycardia as per EMS leading to hypotension. I do not have those records here. Cardiology Department following this patient closely. She was on a transcutaneous pacing on the admission day overnight, she has been off since 04/17/2019. She is not on pressors either. 5. Atrial fibrillation with rapid ventricular response, rate controlled. Continue with same management. 6. Anemia. Her hemoglobin upon admission was around 11.3 and has been constantly dropping, today 7.8. She does have an occult blood in the stool, she has been placed on PPIs twice a day. I have requested an evaluation by Gastroenterology Department, and she has been on Eliquis which has been stopped due to possible GI bleed. 7. History of Alzheimer's dementia with behavioral disturbance, aware. I put this patient back on her home medications, especially the ones that Nidia Bah recommended at some point before this hospital hospitalization. 8. Macrocytic anemia. Eliquis has been on hold due to low hemoglobin and positive occult blood in the stool. We will check with Gastroenterology Department. 9. Acute kidney injury. This is getting better. She has an adequate urine output. Probably related to vancomycin at this time. cc: Horace Perez MD
--- NOTE | 2019-04-24 15:05 | INFECTIOUS DISEASE PROGRESS NO ---
DATE: 04/24/2019 HISTORY OF PRESENT ILLNESS: Ms. Hays is being treated for a Staph epi bacteremia thought to have originated from an IV site. MEDICATIONS: She is receiving daptomycin 600 mg IV daily based on her sterile blood cultures. Today is day 4 of treatment for her bacteremia. PHYSICAL EXAMINATION: Vital Signs: Temperature is 98.7 degrees, pulse rate 116, respiratory rate 16, blood pressure 157/92, O2 saturation is 97% on room air. General: This is a an obese, chronically ill-appearing, elderly female. She is lying in the bed currently in no acute distress. HEENT: Atraumatic, normocephalic. Oral mucous membranes are pink and moist. Conjunctivae are pale. Neck: Supple. Trachea is midline. Respiratory: Lung sounds are clear and diminished to auscultation bilaterally. Cardiovascular: Heart rate and rhythm are regular. Normal sinus rhythm on the monitor. Abdomen: Soft, obese and nontender. Bowel sounds are active. Neurologic: She is awake alert. Oriented and appropriate. Very weak in bed. She states she is bed bound on a normal basis. Integumentary: Skin is warm and dry with multiple ecchymotic areas noted to her upper extremities. There is a PICC line in place to the left upper arm, that site without edema or erythema. LABORATORY AND X-RAY: Today, her white count is 7.59, hemoglobin 7.8, platelet count 306,000. Creatinine is 1.3. GFR 41. Total bilirubin 0.98, AST 28, ALT 22, alkaline phosphatase 80. No imaging reports today. However the CT of her head yesterday showed no acute disease or change from prior. ASSESSMENT AND PLAN: Ms. Hays is being treated for a Staph epi bacteremia. She has metal in her right lower extremity so she will require 6 weeks of treatment. Today is day 4 of treatment for her bacteremia. After speaking with Dr. Callahan, there is the possibility that the patient will be ready to be discharged either to rehab or home. The patient at this point is wanting to go home. I will go ahead and put in orders for [facility] to be consulted for home infusion therapy. If she does go to a rehab, then they should be able to do pick her up after she is discharged from rehab to continue infusions at home, since she will need a full 6 weeks. We will see her in the office in 3 weeks and then again at 6 weeks. Orders have been placed on the chart, in the event the patient goes to rehab. These plans have been discussed with and recommended by Dr. Fuller. COMORBIDITIES: For Ms. Hays include that she is elderly and obese with an underlying dementia, and she is bed bound at home. Dictated by TIFFANIE Prasad for Yeyo Fuller MD cc: Yeyo Fuller MD MTDD
[2019-04-24] MEDS: TYLENOL PO PRN (15:15)
[2019-04-24] MEDS: CUBICIN 600 MG in NS 100 ML IV SCH (15:16)
--- NOTE | 2019-04-24 19:42 | GASTROENTEROLOGY CONSULTATION ---
DATE: 04/24/2019 REASON FOR CONSULTATION: Anemia, Hemoccult-positive stool. HISTORY OF PRESENT ILLNESS: Ms. Chiquita Hays is a 63-year-old woman with past medical history of morbid obesity, status post Nesha-en-Y gastric bypass approximately 10 years ago, GERD, suspected dementia with behavioral disturbance and mood disorder, and recent diagnosis of atrial fibrillation, who was initially on Eliquis, but was switched over to warfarin about a month ago. She presented initially at [facility] with altered mental status and junctional bradycardia, requiring transcutaneous pacing and pressors. On presentation, she was found to have leukocytosis and positive blood cultures showing Staphylococcus epidermidis as well as acute kidney injury. Her INR was supratherapeutic at 5.3. It was thought that her cardiogenic shock was related to polypharmacy. Her hospital course was complicated by acute respiratory failure, requiring intubation for airway protection. She was extubated on 04/18/2019. During her hospitalization, she was noted to have downtrending hemoglobin from 11.3 on admission to 7.4 yesterday. She has not required any blood transfusions, had not had any overt bleeding. Upon interview, the patient says that she does not have any GI complaints, change in her bowel habits, constipation, diarrhea, rectal bleeding, melena, nausea, vomiting. She occasionally has heartburn when she eats greasy foods and takes Pepcid over the counter approximately once a month. She has no family history of GI malignancy. She has not had a colonoscopy or EGD. It would be unusual for patient to have a Nesha-en-Y gastric bypass without having an EGD prior; however, the patient does not recall having such procedure. She does not take any NSAIDs. She is on aspirin 81 mg, and again she was on warfarin prior to admission. PAST MEDICAL HISTORY: As per HPI. PAST SURGICAL HISTORY: 1. Abdominal hysterectomy. 2. Nesha-en-Y gastric bypass. Her bypass was about 10 years ago. FAMILY HISTORY: No family history of GI malignancy. SOCIAL HISTORY: No smoking, alcohol, or drug use. HOME MEDICATIONS: Include: 1. Metoprolol. 2. Flecainide. 3. Remeron. 4. Melatonin. 5. Cymbalta. 6. Vitamin D. 7. Loxitane 8. Seroquel. 9. Xanax. 10. Coumadin. 11. Abilify. 12. Trazodone. 13. Aspirin. 14. Gabapentin. 15. Protonix. 16. Allopurinol. 17. Magnesium oxide. ALLERGIES: Famotidine, ibuprofen, and latex. REVIEW OF SYSTEMS: As per HPI, otherwise 12 point review of systems is negative. PHYSICAL EXAMINATION: Vital Signs: Temperature is 98.8 degrees, heart rate is tachycardic 124, respiratory rate 16, blood pressure 155/99, O2 saturation 95% on room air. General: Patient is pleasant, awake, alert, oriented x3, in no acute distress. HEENT: Sclerae anicteric. Moist mucous membranes. Extraocular motor intact. Neck: Supple. No JVD or lymphadenopathy. Cardiac: Tachycardic, irregularly irregular. Lungs: Clear to auscultation bilaterally. Abdomen: Obese, soft, nontender, nondistended. Normoactive bowel sounds. No rebound or guarding. Extremities: Trace pedal edema bilaterally. Neurologic: Moving all extremities symmetrically. Skin: She has scattered bruises on her upper extremities and abdomen. Psych: Patient speaks fluidly and is able to recall her history pretty well, and occasionally makes some nonsensical statement. No hallucinations currently or agitations. Pleasant affect. LABS: White count is 7.5, hemoglobin is 7.8, MCV is 102.8, platelets of 306,000. INR 0.99. Sodium 142, potassium 3.9, chloride 102, bicarb 28, BUN is 12, creatinine is 1.3 from 0.6 4 days ago, calcium 8.5, iron 66, TIBC is 348, percent saturation is 19, ferritin 138. LFTs are unremarkable. Total protein is 6.0, albumin 2.9, folate 17, vitamin B12 of 517. Blood cultures from 04/16/2019 and 04/18/2019 show Staphylococcus epidermidis. Urine culture is negative. Hemoccult Is positive. IMAGING: Chest x-ray on 04/23/2019 shows improving pulmonary edema versus atelectasis. Head CT shows no acute disease. ASSESSMENT AND PLAN: Ms. Chiquita Hays is a 63-year-old woman, with history of gastroesophageal reflux disease, Nesha-en-Y gastric bypass, and recent diagnosis of atrial fibrillation on anticoagulation with Warfarin, who was admitted with altered mental status and cardiogenic shock in the setting of bradycardia, thought to be related to polypharmacy and beta blockade as well as septic shock from Staphylococcus epidermidis. The patient's home cardiac medications were held and she was temporarily intubated for airway protection. She also required transcutaneous pacing which has been discontinued. Her course has been complicated by worsening anemia, acute kidney injury, and atrial fibrillation with rapid ventricular response. She denies any sort of gastrointestinal symptoms, including gastrointestinal bleeding. She does take aspirin 81 mg at home and rarely, rarely takes nonsteroidal anti-inflammatory medications. She has not had a colonoscopy or endoscopy in the past. I suspect she may require re-initiation of anticoagulation. In light of this, we will plan for a diagnostic esophagogastroduodenoscopy and colonoscopy on Saturday. She is currently on a heart healthy diet. We will start her on clear liquids on Saturday, and prep with GoLYTELY Saturday evening for procedure on Saturday. In the meantime, I recommend rate control of her atrial fibrillation, possibly fluid resuscitation for acute kidney injury, and trending her hemoglobin and hematocrit daily. Transfuse as needed to maintain hemoglobin between 7 and 8. She is on a proton pump inhibitor currently twice a day. Differential of her anemia includes marginal ulcer, Helicobacter pylori gastritis, angiectasias, and cannot rule out malignancy. Thank you for this consult. We will follow with you. Please call with any questions or concerns. CATHI
[2019-04-24] MEDS: SEROQUEL PO SCH (20:59)
[2019-04-24] MEDS: MELATONIN PO SCH (21:00)
[2019-04-24] MEDS: REMERON PO SCH (21:00)
[2019-04-24] MEDS: HALDOL IV PRN (23:08)
[2019-04-25] MEDS: ATROVENT NEB INH SCH ×6 (04:06→23:48)
[2019-04-25] MEDS: XOPENEX NEB INH SCH ×6 (04:06→23:48)
[2019-04-25 07:14] LABS: BASO# 0.04 X1000 (0.0-0.2); BASO% 0.5 % (0.0-0.8); EOS# 0.32 X1000 (0.0-0.7); HEMATOCRIT 26.2 % (37.0-47.0); HEMOGLOBIN 8.1 g/dL (12.0-16.0); IMM GRAN# 0.03 X1000 (0.0-0.04); IMM GRAN% 0.4 % (0.0-0.5); LYMPH# 1.56 X1000 (1.2-3.4); LYMPH% 19.3 % (20.5-51.1); MCH 31.9 PG (27-31); MCHC 30.9 g/dL (33-37); MCV 103.1 FL (81-99); MONO# 0.73 X1000 (0.11-0.59); MPV 9.5 FL (7.4-10.4); NEUT# 5.39 X1000 (1.4-6.5); NEUT% 66.8 % (42.2-75.2); PLT 357 X1000 (130-400); RBC 2.54 XMIL (4.2-5.4); WBC 8.07 X1000 (4.8-10.8)
[2019-04-25] MEDS: MORPHINE IV PRN ×3 (07:26→23:40)
[2019-04-25 07:38] LABS: CALCIUM 8.9 mg/dL (8.8-10.2); CREATININE 1.5 mg/dL (0.5-0.9); MAGNESIUM 2.1 mg/dL (1.5-2.7); POTASSIUM 3.9 mmol/L (3.5-5.1)
[2019-04-25] MEDS: MAG-OX PO SCH (10:24)
[2019-04-25] MEDS: TYLENOL PO PRN (10:24)
[2019-04-25] MEDS: NS 1,000 ML IV SCH ×2 (10:24→23:42)
[2019-04-25] MEDS: ASPIRIN EC PO SCH (10:24)
[2019-04-25] MEDS: PROTONIX PO SCH ×2 (10:25→21:01)
[2019-04-25] MEDS: ZYLOPRIM PO SCH (10:25)
[2019-04-25] MEDS: XANAX PO PRN (12:30)
[2019-04-25] MEDS: CUBICIN 600 MG in NS 100 ML IV SCH (16:23)
[2019-04-25] MEDS: LOPRESSOR PO SCH ×3 (16:23→23:17)
--- NOTE | 2019-04-25 18:07 | PROGRESS NOTE ---
DATE: 04/25/2019 SUBJECTIVE: When I evaluated this patient she was laying comfortably in bed. No family members at the bedside. She is completely alert and oriented x3 today, heart rate, vital signs today are stable, her creatinine increased a little bit but the urine output is good, I will give her a little bit of fluids to see if we can decrease the BUN and creatinine a little bit, hemoglobin, hematocrit better today and hopefully she will have an endoscopy done next Saturday. OBJECTIVE: Vital Signs: Temperature 98.1 degrees, pulse 97, respiratory rate 16, blood pressure 152/92, oxygen saturation 96 on room air. HEENT: Head normocephalic, no trauma. PERRLA. Neck: Supple. No JVD. No masses. Central trachea. Chest: Coarse breath sounds bilaterally with some crepitus and mild crackles at the left base. Cardiovascular: RRR. Abdomen: Soft, protuberant, nontender, nondistended. No hepatosplenomegaly. Extremities: No edema, no clubbing, no cyanosis. Neurological: The patient is alert, she is oriented x3 today, she moves all 4 extremities but she does have generalized weakness. LABORATORY: WBC 8.07, hemoglobin 8.1, hematocrit 26.2, platelets 357,000. Sodium 141, potassium 3.9, chloride 102, bicarbonate 29, BUN 14, creatinine 1.5, glucose 94, calcium 8.9, magnesium 2.1. ASSESSMENT AND PLAN: 1. Septic shock from Staphylococcus epidermidis bacteremia, probably the source was the right- sided subclavian central line in the emergency room when this was placed emergently, this has been removed already on 04/20/2019. Will continue with same management. She was on vancomycin at the beginning but now she is on daptomycin. Probably the elevated creatinine is related to vancomycin, she has been tolerating p.o. She looks hydrated. Infectious Disease Department on board. Echocardiogram did not show any vegetation. 2. Acute respiratory failure requiring intubation on presentation in the setting of syncope and bradycardia with hypotension, likely also related to left lower lobe pneumonia. She is status post extubation on 04/17/2019, continue breathing treatment. Pulmonary Department on board. 3. Left lower lobe pneumonia as above. 4. Reported significant bradycardia as per EMS leading to hypotension, Cardiology on board. Will continue to monitor. She was on a transcutaneous pacing on the admission day and it has been removed since 04/17/2019, she is not on pressors either. 5. Atrial fibrillation with rapid ventricular response, rate control, we will use medications as needed as well to control the heart rate. 6. Anemia. Her hemoglobin upon admission was around 11.3 and it has been constantly dropping, it is slightly above 8 today, she has been placed on PPIs twice a day. Gastroenterology Department evaluated this patient. Probably she will go for an endoscopy this Saturday, Eliquis has been stopped due to her gastrointestinal bleed, positive Hemoccult. 7. History of Alzheimer dementia with behavioral disturbance, aware. I put this patient back on her home medications. Today she looks stable, apparently she was diagnosed at [facility]. 8. Macrocytic anemia, Eliquis on hold, continue with the same management. 9. Acute kidney injury. She is having inadequate urine output but creatinine increased a little bit. I will give her a little bit of fluid today and I will reevaluate tomorrow this patient. cc: Horace Perez MD
--- NOTE | 2019-04-25 18:48 | PROVIDER PROGRESS NOTE ---
Progress Note SUBJECTIVE: No acute overnight events. Afebrile. Patient tolerating diet. She denies complaints. No rectal bleeding OBJECTIVE: Last Vital Signs Temp 99.1 F 04/25/19 16:00 Pulse 77 04/25/19 16:00 Resp 20 04/25/19 16:00 BP 186/86 04/25/19 16:00 Pulse Ox 99 04/25/19 16:00 Height 5 ft 9 in Weight 217 lb 4 oz GEN: awake, alert, NAD HEENT: anicteric, MMM NECK: supple, no jvd PULM: CTAB, no wheezing CV: irregularly irregular ABD: soft NT/ND, NABS, no rebound or guarding EXT: no cce NEURO: nonfocal LABS: 04/25/19 04/25/19 06:30 06:30 WBC 8.07 Hgb 8.1 L Plt Count 357 Sodium 141 Potassium 3.9 Chloride 102 Carbon Dioxide 29 BUN 14 Creatinine 1.5 H Glucose 94 A/P: Ms. Chiquita Hays is a 63-year-old with dementia, GERD, Nesha-en-Y gastric bypass, Afib who was initially admitted with AMS in the setting of cardiogenic shock from iatrogenic bradycardia requiring pressors and transcutaneous pacing. She was also found to have Staph epidermidis bacteremia secondary to line infection on vancomycin; AFIB with RVR, MEETA, and anemia. GI consulted for worsening anemia from occult blood loss in the setting of supratherapeutic INR and aspirin use. # Anemia: clear liquid diet starting tomorrow; will prep with 4L golytely with plans for diagnostic colonoscopy on Saturday # AFIB with RVR: rate controlled # Bradycardia: resolved; cardiology following # Bacteremia: on abx per ID # History of GERD: continue PPI # History of RYGB: noted Will follow with you. Please call with questions
[2019-04-25] MEDS: MELATONIN PO SCH (21:00)
[2019-04-25] MEDS: REMERON PO SCH (21:00)
[2019-04-25] MEDS: SEROQUEL PO SCH (21:01)
[2019-04-26] MEDS: LOPRESSOR IV PRN ×2 (00:29→12:38)
[2019-04-26] MEDS: XOPENEX NEB INH SCH ×6 (04:01→23:32)
[2019-04-26] MEDS: ATROVENT NEB INH SCH ×6 (04:01→23:32)
[2019-04-26] MEDS: LOPRESSOR PO SCH ×3 (05:08→22:41)
[2019-04-26 06:48] LABS: BASO# 0.05 X1000 (0.0-0.2); BASO% 0.7 % (0.0-0.8); EOS# 0.39 X1000 (0.0-0.7); EOS% 5.3 % (0.0-10.0); HEMOGLOBIN 7.7 g/dL (12.0-16.0); IMM GRAN# 0.03 X1000 (0.0-0.04); IMM GRAN% 0.4 % (0.0-0.5); LYMPH# 1.15 X1000 (1.2-3.4); LYMPH% 15.6 % (20.5-51.1); MCHC 30.8 g/dL (33-37); MCV 103.7 FL (81-99); MONO# 0.63 X1000 (0.11-0.59); MONO% 8.5 % (1.7-9.3); MPV 9.3 FL (7.4-10.4); NEUT# 5.12 X1000 (1.4-6.5); NEUT% 69.5 % (42.2-75.2); PLT 358 X1000 (130-400); RBC 2.41 XMIL (4.2-5.4); RDW 17.4 % (11.5-14.5); WBC 7.37 X1000 (4.8-10.8)
[2019-04-26 07:10] LABS: CALCIUM 7.9 mg/dL (8.8-10.2); CREATININE 1.4 mg/dL (0.5-0.9)
--- NOTE | 2019-04-26 07:59 | Diag Imaging Result Doc PS360 ---
EXAM: CHEST-1 VIEW INDICATION: SOB TECHNIQUE: One view COMPARISON: 04/23/2019 FINDINGS: The left PICC line is in stable position. Inspiration is suboptimal similar to the previous study. Minimal interstitial thickening and mild atelectasis at the lung bases are approximately stable. No new consolidation is identified. Cardiac silhouette is stable. IMPRESSION: Stable chest. Electronically signed by Homar Mares 04/26/2019 7:57 AM
[2019-04-26] MEDS: ZYLOPRIM PO SCH (08:42)
[2019-04-26] MEDS: ASPIRIN EC PO SCH (08:42)
[2019-04-26] MEDS: MAG-OX PO SCH (08:42)
[2019-04-26] MEDS: PROTONIX PO SCH ×2 (08:43→22:41)
[2019-04-26] MEDS: MORPHINE IV PRN ×2 (08:44→20:33)
--- NOTE | 2019-04-26 09:29 | PROGRESS NOTE ---
DATE: 04/26/2019 SUBJECTIVE: This patient is sitting at the edge of the bed at this moment. She is not complaining of chest pain or shortness of breath. She is making good urine. Her urine output has been more than 2.5 L for the past 4 days. I believe the elevated creatinine was related to vancomycin. She has been scheduled for an endoscopy tomorrow. She will be prepared today. OBJECTIVE: Vital Signs: Temperature 98.8 degrees, pulse 77, respiratory rate 16, blood pressure 172/87, oxygen saturation 97% on room air. HEENT: Head normocephalic no trauma PERRLA. Neck: Supple. No JVD. No masses. Central trachea. Chest: Coarse breath sounds bilaterally with some crepitus and mild rhonchi at the bases. Cardiovascular: Regular rate and rhythm. Abdomen: Soft, protuberant, nontender, nondistended. No hepatosplenomegaly. Extremities: Trace edema. No clubbing. No cyanosis. Neurological: The patient is alert. She is oriented x3 today. She moves all 4 extremities but she does have generalized weakness. LABORATORY: WBC 7.3, hemoglobin 7.7, hematocrit 25, platelets 358,000. Sodium 141, potassium 4, chloride 105, bicarbonate 27, BUN 13, creatinine 1.4, glucose 98, calcium 7.9. ASSESSMENT AND PLAN: 1. Septic shock from Staphylococcus epidermidis bacteremia. Probably the source was the right sided subclavian central line placed at the beginning of this hospitalization emergently. This has been removed already on 04/20/2018. We will continue with the same management. She was on vancomycin, but this has been switched to daptomycin, Infectious Disease Department on board. Echocardiogram did not show any vegetation. 2. Acute respiratory failure requiring intubation on presentation in a setting of syncope and bradycardia with hypotension, likely also related to left lower lobe pneumonia. She is status post extubation on 04/17/2019. We will continue breathing treatment. Pulmonary Department on board. 3. Left lower lobe pneumonia as above. 4. Reported significant bradycardia per EMS leading to hypotension. Cardiology on board. We will continue to monitor. She was on a transcutaneous pacing on the admission day and has been removed since 04/17/2019. She is not on pressors either. She has been in atrial fibrillation with some episodes of rapid ventricular response, but now is controlled. 5. Atrial fibrillation with rapid ventricular response, rate controlled. 6. Anemia. Hemoglobin upon admission was around 11.3, and he has been consistently dropping. Today is above 7. She has been placed on proton pump inhibitor twice a day. Gastroenterology Department evaluated this patient and they will go for endoscopy tomorrow. She has been on Eliquis, which has been stopped due to anemia and gastrointestinal bleed. She has a positive Hemoccult. 7. History of Alzheimer's dementia with behavioral disturbance, aware. This patient today seems to be stable. She is actually completely oriented x3. Apparently she was diagnosed at [facility]. 8. Macrocytic anemia, we have been holding Eliquis. Continue with same management. 9. Acute kidney injury. She is having a really good/adequate urine output, but the creatinine is a little bit elevated. I do believe this is related to vancomycin which has been already stopped. Again no problems with the urine output. I will continue with a little bit of fluids today and we will re-evaluate this patient again tomorrow. cc: Horace Perez MD
--- NOTE | 2019-04-26 11:26 | PROVIDER PROGRESS NOTE ---
Progress Note SUBJECTIVE: No acute overnight events. Afebrile. No rectal bleeding, CP, SOB. OBJECTIVE: Last Vital Signs Temp 98.8 F 04/26/19 07:29 Pulse 77 04/26/19 08:27 Resp 16 04/26/19 08:27 BP 172/87 04/26/19 07:29 Pulse Ox 97 04/26/19 08:27 Height 5 ft 9 in Weight 288 lb 1 oz GEN: awake, alert, NAD HEENT: anicteric, MMM NECK: supple, no jvd PULM: CTAB, no wheezing CV: irregularly irregular ABD: obese, soft NT/ND, NABS, no rebound or guarding EXT: no cc; trace LE edema NEURO: nonfocal LABS: 04/25/19 04/25/19 06:30 06:30 WBC 8.07 Hgb 8.1 L Plt Count 357 Sodium 141 Potassium 3.9 Chloride 102 Carbon Dioxide 29 BUN 14 Creatinine 1.5 H Glucose 94 A/P: Ms. Chiquita Hays is a 63-year-old with dementia, GERD, Nesha-en-Y gastric bypass, Afib who was initially admitted with AMS in the setting of cardiogenic shock from iatrogenic bradycardia requiring pressors and transcutaneous pacing. She was also found to have Staph epidermidis bacteremia secondary to line infection on abx; AFIB with RVR, MEETA, and anemia. GI consulted for worsening anemia from occult blood loss in the setting of supratherapeutic INR and aspirin use. # Anemia: clear liquid diet; prep with 4L golytely; NPO after MN for EGD/colonoscopy with Dr. Dudley tomorrow # AFIB with RVR: rate controlled # Bradycardia: resolved; cardiology following # Bacteremia: on abx per ID # History of GERD: continue PPI # History of RYGB: noted Will follow with you. Please call with questions
[2019-04-26] MEDS ORDERED: LOPRESSOR IV ONE (12:51)
[2019-04-26] MEDS ORDERED: CARDIZEM IV ONE (14:15)
[2019-04-26] MEDS: NS 1,000 ML IV SCH (14:51)
[2019-04-26] MEDS: CUBICIN 600 MG in NS 100 ML IV SCH (14:52)
[2019-04-26] MEDS ORDERED: GOLYTELY PO ONE (16:00)
[2019-04-26] MEDS: MELATONIN PO SCH (22:40)
[2019-04-26] MEDS: REMERON PO SCH (22:41)
[2019-04-27] MEDS: SEROQUEL PO SCH ×3 (00:35→20:53)
[2019-04-27] MEDS: ATROVENT NEB INH SCH ×7 (03:52→23:35)
[2019-04-27] MEDS: XOPENEX NEB INH SCH ×6 (03:52→23:35)
[2019-04-27] MEDS: LOPRESSOR PO SCH ×3 (05:23→20:54)
[2019-04-27] MEDS: NS 1,000 ML IV SCH ×2 (05:41→20:39)
[2019-04-27 06:44] LABS: HEMOGLOBIN 7.7 g/dL (12.0-16.0)
[2019-04-27 07:09] LABS: CALCIUM 8.2 mg/dL (8.8-10.2); CREATININE 1.2 mg/dL (0.5-0.9); POTASSIUM 3.7 mmol/L (3.5-5.1)
[2019-04-27] MEDS ORDERED: DIPRIVAN 1% ONE ×2 (07:35→08:59)
--- NOTE | 2019-04-27 09:25 | EKG Report ---
Test Performed on : 04/26/2019 1:17:52 PM Test Reason : AFIB Blood Pressure : / mmHG Vent. Rate : 123 BPM Atrial Rate : 300 BPM P-R Int : 000 ms QRS Dur : 074 ms QT Int : 324 ms P-R-T Axes : 000 021 -23 degrees QTc Int : 463 ms Atrial fibrillation. with rapid ventricular response. Nonspecific ST abnormality Abnormal ECG When compared with ECG of 18-APR-2019 07:39, QRS duration has decreased Minimal criteria for Anterior infarct are no longer present ST no longer depressed in Lateral leads Nonspecific T wave abnormality now evident in Inferior leads Confirmed by Christie CALVILLO, Abdirahman Tovar ([id number]) on 04/28/2019 10:00:39 AM
[2019-04-27] MEDS: ZYLOPRIM PO SCH (13:05)
[2019-04-27] MEDS: PROTONIX PO SCH ×2 (13:05→20:54)
[2019-04-27] MEDS: MAG-OX PO SCH (13:05)
[2019-04-27] MEDS: ASPIRIN EC PO SCH (13:06)
--- NOTE | 2019-04-27 13:41 | PROGRESS NOTE ---
DATE: 04/27/2019 SUBJECTIVE: The patient is lying in bed. No complaints at this time. Urine output is better. OBJECTIVE: Vital Signs: Temperature 98.5 degrees, heart rate 76, respiratory rate 16, blood pressure 180/91, O2 saturation 97% on room air. General Examination: This is a chronically ill- appearing, 63-year-old, female lying in bed, in no acute distress. HEENT: Head is normocephalic and atraumatic. Neck: No JVD. No carotid bruits. Respiratory Examination: Coarse breath sounds noted in both pulmonary bases along with mild rhonchi as well. Patient is not using any accessory muscles or having work of breathing. Abdomen: Soft, protuberant, nontender to palpation, nondistended. No hepatosplenomegaly noted. Extremities: No clubbing or cyanosis but there is mild edema in both lower extremities. Neurological Examination: The patient is alert and oriented x3. Moves 4 extremities. Laboratory Data: Hemoglobin 7.7, hematocrit 25.0. BMP reveals creatinine 1.2. ASSESSMENT AND PLAN: 1. Septic shock from Staphylococcus epidermidis bacteremia. It was deemed that the source of this infection was the right-sided subclavian central line placed at the beginning of this hospitalization. In any case, Dr. Fuller, infectious disease, is following this patient. Daptomycin is going to be given to this patient for 6 weeks. We are waiting for a rehab bed and I have talked with the secondary social studies teacher and director case management. Apparently, because of the cost of this medication, rehab facilities are not really wanting to take this patient so we are going to see if a long-term acute care can take this patient. 2. Acute respiratory failure requiring intubation on presentation. At this point, patient is doing much better. She had been extubated 11 days ago and now not requiring any oxygen supplementation. 3. Left lower lobe pneumonia, as we mentioned above. 4. Bradycardia and hypertension. Now she is doing fine. Not on pressors. She is on transcutaneous pacing. 5. Atrial fibrillation with rapid ventricular rate. Rate controlled right now. 6. Anemia of chronic disease. We will continue with omeprazole twice daily. Esophagogastroduodenoscopy has been performed today because of gastrointestinal bleeding. Eliquis has been held. We will see what that exam shows. 7. History of Alzheimer's dementia with behavioral disturbances. Aware. 8. Microcytic anemia. Patient has been on Eliquis but at this point, that medication has been held. 9. Acute kidney injury, almost resolved. We will continue to monitor. 10. Disposition. At this point, we are awaiting for a rehab bed versus a long-term acute care bed. cc: Rober Kelly MD
--- NOTE | 2019-04-27 13:44 | OPERATIVE NOTE ---
PROCEDURE DATE: 04/27/2019 REQUESTING PHYSICIAN: Dr. Zapata. PRIMARY CARE PHYSICIAN: Dr. Jimenez. TITLE OF PROCEDURE: 1. Esophagogastroscopy. 2. Colonoscopy with history of anemia. POSTOPERATIVE DIAGNOSES: 1. Normal esophagus in entire length. The Z-line was at 40 cm. 2. Evidence of hiatal hernia, sliding 1 to 2 cm. 3. Evidence of gastric bypass anatomy with normal appearing anastomosis, no evidence of any ulcers. 4. Normal efferent loop of small intestine up to 70 cm from the incisors. 5. Diverticulosis moderate degree in the descending and sigmoid colon. 6. No blood in the entire colon. Stool in the colon was lavaged. 7. Mild internal hemorrhoids grade 1. ESTIMATED BLOOD LOSS: None. COMPLICATIONS: None. ANESTHESIA: Monitored anesthesia care per the anesthesiologist. SPECIMENS: None. DESCRIPTION OF PROCEDURE: After informed consent, the patient was explained the risks, benefits, indications, and alternatives to the procedure. The patient was prepared for EGD and colonoscopy. The patient was brought to the OR. She was turned on the left lateral position. A bite block was placed in patient's mouth. After adequate monitored anesthesia care, the upper scope was introduced through the oral orifice traversed all the way to the efferent loop of the small intestine. The Z-line was noted at 40 cm. There was evidence of 1 to 2 cm sliding hiatal hernia. There was evidence of gastric bypass anatomy. The anastomosis was noted at 48 cm. The anastomosis appeared normal. There was no evidence of any ulceration. The gastric pouch also appeared normal. The efferent loop of the small intestine was examined up to 70 cm from the incisors, which appeared normal. There was no evidence of active bleeding fresh or old blood the entire EGD. The air was aspirated as the scope withdrawn. The patient was turned around. Rectal exam was performed, which revealed normal rectal tone. No masses felt. No blood on the examining finger. The colonoscope was introduced through the anal verge all the way to the cecum. Cecum was identified using landmarks like IC valve and appendiceal orifice. There was no evidence of any colitis. There was no evidence of any AVMs. No evidence of any blood in the colon, no evidence of any dark stools. There was evidence of brown stool in the colon which was lavaged. There was evidence of a moderate degree of diverticulosis in descending and sigmoid colon. Retroflexion in the rectum revealed internal hemorrhoids grade 1. The air was removed as scope withdrawn. The patient was then monitored in the OR in stable condition. RECOMMENDATIONS: 1. Patient will be on diverticulosis diet. Avoid excessive corn, nuts, and seeds in diet. 2. Patient will be started on Iron C b.i.d. for 3 months. 3. We will start the patient on a multivitamin once daily. 4. We will follow the patient's hemoglobin and hematocrit. If the patient's anemia persist then she may benefit from a video capsule endoscopy as an outpatient. We will avoid any NSAIDs. Since the patient has atrial fibrillation with rapid ventricular response, if we start her on anticoagulation we have to watch her hemoglobin closely. 5. Reflux disease. She will continue on reflux lifestyle changes. 6. She will continue take small frequent meals as she has a Nesha en y gastric bypass. She showed avoid any NSAIDs. 7. The patient will return to clinic in 4 weeks after discharge. We will follow up on blood counts. The above plans discussed with the patient on waking up and all questions answered. Please call us with any further questions. cc: MD Aneudy Toth MD
[2019-04-27] MEDS: NORVASC PO SCH ×2 (16:24→20:54)
[2019-04-27] MEDS: CUBICIN 600 MG in NS 100 ML IV SCH (16:25)
[2019-04-27] MEDS: XANAX PO PRN (16:25)
--- NOTE | 2019-04-27 17:35 | INFECTIOUS DISEASE PROGRESS NO ---
DATE: 04/27/2019 PRESENT ILLNESS: The patient has a Staph epidermidis bacteremia. She has metal in her leg and this may have become infected while the patient was bacteremic. MEDICATIONS: The patient is receiving daptomycin. PHYSICAL EXAMINATION: Vital Signs: Temperature is 98.6 degrees, pulse 71, respirations 18, blood pressure 180/91. General: This is a somewhat ill-appearing, elderly female. She is in no acute distress. She actually does look better than she did last week. Head/eyes/ears/nose/throat: She can hear my spoken words and see near objects. She does not have any white coating on her tongue. Neck: She does not have any pain in her neck when she turns her head. Lungs: Clear to auscultation. Cardiovascular: Heart rate is regular. Abdomen: Soft and nontender. Neurologic: The patient is alert. She can move her extremities. There is no tremor. Thorax: The patient does have 2 sutures in the right upper part of her chest. Extremities: PICC site in left arm is not red or tender. LAB AND X-RAY STUDIES: A CBC shows a white count of 7370, hemoglobin 7.7, platelet count is 358,000. Creatinine is 1.2. GFR is 45. ASSESSMENT AND PLAN: The patient has Staphylococcus bacteremia which may have hematogenously infected metal in her leg. My plan is to treat the patient for a total of 6 weeks with IV daptomycin. This is day 4 of treatment with daptomycin and also the patient has had previous negative blood cultures after her bacteremia started. I am going to get a CK on the patient. COMORBIDITIES: She does have Alzheimer dementia. She is obese. cc: Yeyo Fuller MD [facility]
[2019-04-27] MEDS: MORPHINE IV PRN (20:52)
[2019-04-27] MEDS: MELATONIN PO SCH (20:53)
[2019-04-27] MEDS: REMERON PO SCH (20:54)
[2019-04-27] MEDS: ICAR-C PO SCH (20:54)
[2019-04-28] MEDS: LOPRESSOR PO SCH ×2 (00:36→06:43)
[2019-04-28] MEDS: ATROVENT NEB INH SCH ×3 (03:40→11:25)
[2019-04-28] MEDS: XOPENEX NEB INH SCH ×3 (03:41→11:25)
[2019-04-28] MEDS: MORPHINE IV PRN ×2 (05:44→12:40)
[2019-04-28 06:39] LABS: BASO# 0.09 X1000 (0.0-0.2); BASO% 1.1 % (0.0-0.8); EOS# 0.53 X1000 (0.0-0.7); EOS% 6.3 % (0.0-10.0); HEMATOCRIT 26.3 % (37.0-47.0); IMM GRAN# 0.03 X1000 (0.0-0.04); IMM GRAN% 0.4 % (0.0-0.5); LYMPH# 1.35 X1000 (1.2-3.4); LYMPH% 16.1 % (20.5-51.1); MCH 31.7 PG (27-31); MCHC 30.4 g/dL (33-37); MCV 104.4 FL (81-99); MONO# 0.65 X1000 (0.11-0.59); MONO% 7.8 % (1.7-9.3); MPV 9.4 FL (7.4-10.4); NEUT# 5.71 X1000 (1.4-6.5); NEUT% 68.3 % (42.2-75.2); PLT 363 X1000 (130-400); RBC 2.52 XMIL (4.2-5.4); RDW 16.8 % (11.5-14.5); WBC 8.36 X1000 (4.8-10.8)
[2019-04-28 06:44] LABS: CALCIUM 8.1 mg/dL (8.8-10.2); CREATININE 1.3 mg/dL (0.5-0.9)
[2019-04-28] MEDS: NS 1,000 ML IV SCH (06:45)
[2019-04-28] MEDS: PROTONIX PO SCH (08:17)
[2019-04-28] MEDS: ASPIRIN EC PO SCH (08:17)
[2019-04-28] MEDS: ICAR-C PO SCH (08:17)
[2019-04-28] MEDS: MAG-OX PO SCH (08:17)
[2019-04-28] MEDS: NORVASC PO SCH (08:17)
[2019-04-28] MEDS: ZYLOPRIM PO SCH (08:17)
[2019-04-28] MEDS ORDERED: CENTRUM SILVER PO SCH (09:00)
[2019-04-28] MEDS: CARDIZEM PO SCH ×2 (09:34→12:19)
[2019-04-28] MEDS: XANAX PO PRN (11:03)
[2019-04-28 13:13] VITALS: BP 150/78
--- NOTE | 2019-04-28 13:40 | DISCHARGE SUMMARY ---
ADMISSION DATE: 04/16/2019 DISCHARGE DATE: 04/28/2019 DIAGNOSES: 1. Septic shock secondary to Staphylococcus epidermidis bacteremia on daptomycin. 2. Acute respiratory failure requiring intubation in the setting of syncope and bradycardia with hypotension. 3. Left lower lobe pneumonia. 4. Significant bradycardia with hypotension requiring transcutaneous pacing for the first 24 hours. 5. Atrial fibrillation, rate controlled. 6. Alzheimer's dementia with behavioral disturbance. 7. Macrocytic anemia. 8. Left lower lobe pneumonia. 9. Acute kidney injury, resolved. CONSULTATIONS: 1. Dr. Vernon Robledo, Pulmonology. 2. Dr. Yeyo Fuller, Infectious Disease. 3. Dr. Ermias George, Gastroenterology. 4. Dr. Donny Saunders, Cardiology. DIAGNOSTICS: 1. 04/16/2019 CT of the head revealed chronic microvascular ischemic changes. 2. Chest x-ray 04/16/2019 revealed bibasilar atelectasis versus pneumonia. 3. Chest x-ray 04/17/2019 revealed worsened pleural effusions and atelectasis versus pneumonia. 4. Chest x-ray 04/18/2019 revealed improvement in bibasilar infiltrates. 5. 04/19/2019 chest x-ray revealed no change. 6. 04/21/2019 chest x-ray revealed mild vascular distention. 7. 04/23/2019 chest x-ray revealed improving pulmonary edema plus or minus atelectasis. 8. 04/26/2019 chest x-ray revealed PICC line in stable position. Inspiration is suboptimal. Minimal interstitial thickening and mild atelectasis at the lung bases, stable. No new consolidation identified. Cardiac silhouette is stable. 9. 04/23/2019 CT of the head revealed no acute disease or change from prior. 10. 04/17/2019 echocardiogram revealed EF of 55%. MICROBIOLOGY: 1. Blood cultures 04/16/2019 revealed staphylococci epidermidis. 2. Blood cultures 04/18/2019 revealed Staphylococcus epidermidis. 3. Blood culture 04/20/2019 revealed no growth after 5 days. 4. Urine culture 04/16/2019 and 04/20/2019 revealed no growth. 5. Stool for occult blood 04/22/2019 was positive. PROCEDURES: 1. 04/27/2019 EGD and colonoscopy revealed normal esophagus and entire length, evidence of hiatal hernia, sliding 1 to 2 cm, evidence of gastric bypass anatomy with normal appearing anastomosis. No evidence of ulcers. Diverticulosis of moderate degree in the descending and sigmoid colon. No blood in the entire colon. Stool in the colon was lavaged. Mild internal hemorrhoids, grade 1. HOSPITAL COURSE: Ms. Hays presented to the emergency room in cardiogenic shock with significant bradycardia and hypotension. This was felt to be secondary to beta blockers and flecainide as well as Loxitane, ropinirole and psych medications. She required transcutaneous pacing overnight, and has required none since. She has remained in atrial fibrillation at controlled rate. We did follow electrolytes and replete as appropriate. She did have acute respiratory failure, and required intubation on the . She was found to have pneumonia. She was initially treated with Zosyn and vancomycin. Wound cultures returned Staph epidermidis. Dr. Fuller and Infectious Disease was consulted. Due to creatinine rising, she was changed to daptomycin. In view of the patient having metal in her leg, she is to be treated for 6 weeks with date 04/28 is day 5 of her treatment. CPK was 53. Today, she did have a hemoglobin on admission that was 11.3 that did consistently drop. On the , her hemoglobin was 7. She did have a positive Hemoccult. Eliquis was discontinued. Gastroenterology was consulted, and she underwent an EGD and colonoscopy on the , which showed no evidence of bleeding. No evidence of ulcers. She did have grade 1 internal hemorrhoids as well as diverticulosis. Alzheimer's dementia with behavior disturbance which is stable according to family members. Creatinine peaked at 1.5 on the . She is down to 1.3 today. Thankfully, a bed was found at [facility] and the patient is able to be discharged. DISCHARGE EXAMINATION: Vital signs: Blood pressure is 150/90 with a heart rate of 100, respirations are 18, temperature 98.6 degrees oral with room air saturations 96 to 98%. HEENT and Neck: Head is normocephalic, atraumatic. Mucous membranes are moist. Neck is supple. Trachea midline. Cardiovascular: Irregular rate and rhythm. S1 and S2 appreciated. She does have some bilateral lower extremity edema with peripheral pulses palpable x4 extremities. pulmonary: Breath sounds are clear. Chest rises and falls symmetric with respiration. Chest wall is nontender to palpation. Gastrointestinal: Abdomen is soft, nontender, nondistended with bowel sounds in all 4 quadrants. Neurologic: She is alert and oriented x3. Skin: Warm and dry. DISCHARGE MEDICATIONS: 1. Daptomycin 600 mg IV q.24 hours for 6 weeks with day 5 of her treatment 04/28/2019. 2. Allopurinol 300 mg p.o. daily. 3. Xanax 0.125 mg q.8 hours p.r.n. 4. Norvasc 5 mg p.o. daily. 5. Enteric-coated aspirin 81 mg daily. 6. Cardizem 60 mg p.o. q.8 hours. 7. Atrovent nebs 0.5 q.4 hours scheduled. 8. Icar C 1 p.o. b.i.d. 9. Xopenex 1.25 mg nebs q.4 hours. 10. Magnesium oxide 800 mg p.o. daily. 11. Melatonin 5 mg p.o. at bedtime. 12. Lopressor 50 mg p.o. q.8 hours. 13. Remeron 15 mg p.o. at bedtime. 14. Centrum Silver 1 p.o. daily. 15. Protonix 40 mg p.o. b.i.d. 16. Seroquel 25 mg p.o. at bedtime. 17. Trazodone 25 mg p.o. at bedtime p.r.n. She is being discharged in stable condition in transfer to LT[facility]. Follow up will be per [facility] medical equipment repairer on discharge from the facility. Dictated by TIFFANIE Alvarado for Rober Kelly MD Addendum: Patient seen and examined by myself. Agree with TIFFANIE note. It reflects my assessment and plan. Patient is being discharged in stable condition. Patient going to LT[facility]. cc: TIFFANIE Alvarado MD [facility]
--- NOTE | 2019-04-28 23:48 | PROVIDER PROGRESS NOTE ---
Progress Note SUBJECTIVE: No acute overnight events. Patient reported chest pressure associated with palpitations this AM. No SOB, abdominal pain, or rectal ble eding. +BMs OBJECTIVE: Last Vital Signs Temp 98.9 F 04/28/19 13:10 Pulse 115 H 04/28/19 13:10 Resp 20 04/28/19 13:10 BP 150/78 04/28/19 13:10 Pulse Ox 95 04/28/19 13:10 Height 5 ft 9 in Weight 221 lb 4 oz GEN: awake, alert, NAD HEENT: anicteric, MMM NECK: supple, no jvd PULM: CTAB, no wheezing CV: irregularly irregular ABD: obese, soft NT/ND, NABS, no rebound or guarding EXT: no cc; trace LE edema NEURO: nonfocal LABS: 04/26/19 04/26/19 04/28/19 06:17 06:17 06:03 WBC 7.37 Hgb 7.7 L Plt Count 358 Sodium 141 140 Potassium 4.0 4.0 Chloride 105 105 Carbon Dioxide 27 24 L Anion Gap 9 BUN 13 10 Creatinine 1.4 H 1.3 H 04/28/19 06:03 WBC 8.36 Hgb 8.0 L Plt Count 363 Sodium Potassium Chloride Carbon Dioxide Anion Gap BUN Creatinine EGD/Colonoscopy 04/27 POSTOPERATIVE DIAGNOSES: 1. Normal esophagus in entire length. The Z-line was at 40 cm. 2. Evidence of hiatal hernia, sliding 1 to 2 cm. 3. Evidence of gastric bypass anatomy with normal appearing anastomosis, no evidence of any ulcers. 4. Normal efferent loop of small intestine up to 70 cm from the incisors. 5. Diverticulosis moderate degree in the descending and sigmoid colon. 6. No blood in the entire colon. Stool in the colon was lavaged. 7. Mild internal hemorrhoids grade 1. A/P: Ms. Chiquita Hays is a 63-year-old with dementia, GERD, Nesha-en-Y gastric bypass, Afib who was initially admitted with AMS in the setting of cardiogenic shock from iatrogenic bradycardia requiring pressors and transcutaneous pacing; now resolved. She was also found to have Staph epidermidis bacteremia secondary to line infection on abx; AFIB with RVR, MEETA, and anemia. GI consulted for worsening anemia from occult blood loss in the setting of supratherapeutic INR and aspirin use. Hgb has remained stable. EGD and colonsocopy revealed hiatal hernia, normal RYGB anatomy, diverticulosis, and hemorrhoids. No obvious source of GI bleeding found. # Anemia: stable; patient will likely need outpatient capsule endoscopy if has recurrent anemia # AFIB with RVR: rate controlled; ok to resume anticoagulation as per primary; consider monotherapy # Bradycardia: resolved; cardiology following # Bacteremia: on abx per ID # History of GERD: continue PPI # Diverticulosis: high fiber Patient discharged today
== END 2019-04-28 13:25 | DRG 308 ==
LOC: SUPCPDRO → ED 14:01 → ICU 19:35 → SUATTDRO 19:35 → 4N 04-22 14:58
PROVIDERS: ATTEND Internal Medicine
CPT/HCPCS: 36569; 51702; 70450; 71010; 71045; 80048; 80053; 80101; 80202; 80301; 80307; 80320; 80324; 80345; 80346; 80353; 80358; 80361; 80365; 81001; 82055; 82270; 82550; 82553; 82607; 82728; 82746; 82805; 82948; 83540; 83550; 83605; 83735; 83880; 83992; 84100; 84443; 84484; 85014; 85018; 85025; 85610; 85730; 87040; 87070; 87077; 87088; 87186; 87205; 93005; 93010; 93306; 93308; 94003; 94640; 94761; 96365; 96366; 96368; 96372; 96375; 99285; 99291; A9270; G0431; G0434; G0479; G0480; G6040; J0330; J0360; J0461; J0878; J1630; J1940; J2060; J2250; J2270; J2405; J2543; J3370; J3475; J3480; J7030; J7040; J7050; XXXXX